=== PATIENT | female | born 1935 | race Caucasian/White ===

== ENCOUNTER 2018-07-19 12:36 | Inpatient (IN) | payer MEDICARE ==
--- NOTE | 2018-07-19 13:28 | ED ---
Neurological HPI - HPI Summary HPI Summary: 82 year old F brought in by EMS from home where she lives alone to [facility] accompanied by son complains of generalized weakness progressively worsening for the past year. The patient has ongoing pain in her left shoulder for weeks and rates the pain 4/10. Symptoms aggravated by nothing. Symptoms alleviated by nothing. Patient reports insomnia and anxiety. Patient denies chest pain, chest tightness, shortness of breath. No hx OR. Denies headache and dizziness. Denies fever and cough. Denies abdominal pain, nausea, vomiting. Son denies facial droop and speech abnormalities. Son denies recent falls. Patient additionally complains of difficulty with ambulation and movement. Per son, her inability to ambulate continues to worsen, reaching a point where patient is shuffling rather than walking. Patient states, "When I want my leg to move, my leg won't move." She additionally notes tremors in both hands, which have not been diagnosed per son. The tremors have progressively been getting worse. Patient also reports that her left arm feels tired, heavy, and achey for a few weeks. Patient presents to ED today because she feels much worse and anxious. Patient notes that she has not been taking her medication for the last 6 weeks because her medication "makes me sick," including bilateral lower extremity edema, bruising, diarrhea, and vomiting. However, she did take Metoprolol and Levoxyl this morning. Patient has hx diabetes. Patient reports that blood glucose levels are usually 130-150 every morning. Patient has hx thyroid problems and hx HTN. She denies Fhx Parkinson's disease. Patient has had back surgery for sciatic nerve and states that the left leg weakness is the side that was affected by the sciatica. Son also notes that patient has not seen her primary care provider for a while, months at least. Pt has not had a neurologic evaluation for her tremors or gait which have been present since at least 2015 per son, but worsening. Vital signs while in room: HR 70 bpm, BP 201/108 Home Medications Medication Instructions Recorded Confirmed Type Levothyroxine Sodium [Levoxyl] 50 mcg PO DAILY 06/10/13 07/19/18 History Lisinopril TAB* [Prinivil TAB 10 40 mg PO DAILY 06/10/13 07/19/18 History MG*] Metoprolol Tartrate TAB* 50 mg PO BID 06/10/13 07/19/18 History [Lopressor TAB*] Multivitamin [Multivitamins] 1 cap PO DAILY 06/10/13 07/19/18 History [place]-3 Fatty Acids [Fish Oil 645 1 cap PO DAILY 06/10/13 07/19/18 History mg] amLODIPine TAB* [Norvasc 5 mg TAB*] 10 mg PO DAILY 06/10/13 07/19/18 History glipiZIDE TAB* [Glucotrol TAB*] 2.5 mg PO BID 06/10/13 07/19/18 History metFORMIN* [Glucophage 500 MG TAB 1,000 mg PO BID 06/10/13 07/19/18 History *] Naproxen Sodium [Aleve] 440 mg PO DAILY 03/08/16 07/19/18 History - History of Current Complaint Chief Complaint: EDWeakness Stated Complaint: WEAKNESS Time Seen by Provider: 07/19/18 13:16 Hx Obtained From: Patient, Family/Overnight Stocker - son Onset/Duration: Gradual Onset, Still Present, Worse Since - today, Other - started 1 year ago Timing: Constant Onset Severity: Moderate Current Severity: Moderate Neurological Deficit Location: LLE - left leg weakness, chronic since spinal surgery 2015 Pain Intensity: 4 - left arm and shoulder Pain Scale Used: 0-10 Numeric Character: Weak - generalized, and continued left leg weakness, Motor Weakness - left leg greater than right leg for weeks to months, shuffling gait, Other: - bilateral hand tremor getting worse Aggravating: Nothing Alleviating: Nothing Associated Signs and Symptoms: Positive: Unsteady Gait, Weakness. Negative: Impaired Speech, Numbness, Nausea/Vomiting, Fever, Recent Illness, Diarrhea, Chest Pain, Shortness of Breath, Palpitations TPA Considered: No - not acute presentation Related Hx: Medication Non-Comliant - med non-compliant: stopped meds on her own 6 weeks ago, due to side effects. Has not seen PCP in months at least. Pt brought med bottles, but I did not review dates of the RX's or the names of the prescribers. - Additional Pertinent History Primary Care Physician: [id number] - Allergy/Home Medications Allergies/Adverse Reactions: Allergies Allergy/AdvReac Type Severity Reaction Status Date / Time hydrochlorothiazide Allergy See Comment Verified 07/19/18 12:59 atorvastatin [From Lipitor] AdvReac Muscle Ache Verified 07/19/18 12:52 Fpvdysr-Epo-Fss Reductase AdvReac Muscle Ache Verified 07/19/18 12:59 Inhibitor PMH/Surg Hx/FS Hx/Imm Hx Previously Healthy: No Endocrine/Hematology History: Reports: Hx Diabetes, Hx Thyroid Disease - ON DAILY MEDS, hypothyroid Cardiovascular History: Reports: Hx Hypercholesterolemia, Hx Hypertension - ON DAILY MEDS Denies: Hx Pacemaker/ICD History: Denies: Hx Dialysis, Hx Renal Disease Musculoskeletal History: 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 1983 D&C. 194 MASTOID OPERATION, BACK SURGERY 02/08/2016 Hx Anesthesia Reactions: No Infectious Disease History: No Infectious Disease History: Denies: Traveled Outside the [place] in Last 30 Days - Family History Known Family History: Positive: Hypertension, Diabetes - mother, Other - cancer both parents - Social History Lives: Alone Alcohol Use: None Hx Substance Use: No Substance Use Type: Reports: None Hx Tobacco Use: Yes Smoking Status (MU): Former Smoker Type: Cigarettes Amount Used/How Often: LESS THEN 1PPD Have You Smoked in the Last Year: No Review of Systems Positive: Other - generalized weakness, no fever Cardiovascular: Negative - chest tightness Negative: Chest Pain Negative: Shortness Of Breath Negative: Abdominal Pain, Vomiting, Nausea Positive: no symptoms reported Positive: Other - left arm heavy, achey, tired Positive: Rash - behind right knee Neurological: Negative - Dizziness; facial droop; speech abnormalities, Other - increasing generalized weakness; tremors in both hands; left arm feels tired, heavy, and achey Negative: Headache Positive: Anxious, Other - insomnia All Other Systems Reviewed And Are Negative: Yes Physical Exam - Summary Physical Exam Summary: Appearance:chronically-appearing, moderate pain distress due to left shoulder and arm, obese, hypertensive Skin: Warm, color reflects adequate perfusion, dry, 5 cm lesion right post knee with raised, scabbed edges and central clearing Head: Normal Head/Face inspection, atraumatic Eyes: Conjunctiva clear, PERRL EOMI, no nystagmus ENT: Normal inspection Neck: Supple, no nodes, no JVD Respiratory: Lungs clear, normal breath sounds, no respiratory distress Cardio: RRR, No murmur, pulses normal, brisk capillary refill Abdomen: Soft, nontender Bowel sounds: Present Musculoskeletal: left leg 4/5 strength, right 5/5, distal pulses, sensation intact, no calf tenderness, no edema, deformity left shoulder, no bony tenderness, axillary nerve intact on left, decreased abduction on left . Psychological: Normal Neuro: A&O x3, CN II-XII intact, motor function 4/5 left leg, otherwise normal, sensation intact, cerebellar normal, bilateral hand tremor at rest (? pillrolling on right?, lessens with outstretched hands) GCS: 15 Triage Information Reviewed: Yes Vital Signs On Initial Exam: Initial Vitals Temp Pulse Resp BP Pulse Ox 97.4 F 70 14 199/96 97 07/19/18 12:36 07/19/18 12:36 07/19/18 12:36 07/19/18 12:36 07/19/18 12:36 Vital Signs Reviewed: Yes - [place] Coma Scale Best Eye Response: 4 - Spontaneous Best Motor Response: 6 - Obeys Commands Best Verbal Response: 5 - Oriented Coma Scale Total: 15 Diagnostics - Vital Signs Vital Signs Temp Pulse Resp BP Pulse Ox 07/19/18 12:36 97.4 F 70 14 199/96 97 - Laboratory Result Diagrams: 07/20/18 07:24 07/20/18 07:24 Lab Statement: Any lab studies that have been ordered have been reviewed, and results considered in the medical decision making process. - Radiology Shoulder Radiology Interpretation Completed By: Radiologist Summary of Radiographic Findings: 1. LIMITED SINGLE FRONTAL PROJECTION OF THE LEFT SHOULDER. 2. OSTEOPENIA. 3. OSTEOARTHRITIS. 4. NO ACUTE OSSEOUS INJURY. IF SYMPTOMS PERSIST, RECOMMEND REPEAT IMAGING. ED physician has reviewed this report. ADDITONAL IMAGES TRANSMITTED FOR RE-READ: still no acute fracture dislocation. CXR Radiology Interpretation Completed By: Radiologist Summary of Radiographic Findings: HYPERINFLATION. NO ACTIVE CARDIOPULMONARY DISEASE. ED physician reviewed this report. - CT Brain CT Interpretation Completed By: Radiologist Summary of CT Findings: NO ACUTE INTRACRANIAL PATHOLOGY. ED physician has reviewed this report. - EKG 1320 Cardiac Rate: NL - 63 BPM EKG Rhythm: Sinus Rhythm ST Segment: Non-Specific Ectopy: None Summary of EKG Findings: NSR at 63 BPM. Left axis (-16). Believed artifact due to tremor, causing appearance of possible atrial flutter. No significant change from previous EKG on 02/02/16. Not a STEMI. NIH Scale - NIH Scale Level of Consciousness: Alert/Keenly Responsive Ask Patient the Month and His/Her Age: Both Correct Ask Pt to Open/Close Eyes and Pottery Decorator/Release Non-Paretic Hand: Both Correctly Best Gaze (Only Horizontal Eye Movement): Normal Visual Field Testing: No Visual Loss Facial Paresis-Pt to Smile & Close Eyes or Grimace Symmetry: Normal/Symmetrical Motor Function - Right Arm: No Drift-Holds 10 Seconds Motor Function - Left Arm: No Drift-Holds 10 Seconds Motor Function - Right Leg: No Drift-Holds 10 Seconds Motor Function - Left Leg: Effort Against [place] Limb Ataxia-Must be out of Proportion to Weakness Present: Absent Sensory (Use Pinprick to Test Arms/Legs/Trunk/Face): Normal Best Language (Describe Picture, Name Items): No Aphasia Dysarthria (Read Several Words): Normal Extinction and Inattention: No Abnormality Total Score: 2 NIH Stroke Scale Comment: left leg weakness is not acute. Pt also has bilat hand tremors Re-Evaluation - Re-Evaluation First Eval Re-Evaluation Time: 15:00 Change: Improved Comment: HR 66 BPM, BP 176/92 after IV metoprolol. Patient has no pain. Her tremor is a little less. Course/Dx - Course Course Of Treatment: 82 yo F who lives alone, with hx DM, HTN, hypothyroidism, s /p spinal surgery med noncompliant due to side effects, and lapsed care with her PCP for many months presents to the ED by EMS with her son who lives across the [address] with hx worsening generalized weakness and hand tremors, continued left leg weakness s/p spinal surgery, and worsening problem with ambulation and a shuffling gait. Pt with hypertensive urgency on presentation to the ED and c/ o left shoulder and arm pain for weeks to months, worse today, and vague intermittent chest pain. Patient medications reviewed this visit, which are many , but pt took only metoprolol and levoxyl this am, and has stopped most for more than 6 weeks. Allergies noted. Bloodwork unremarkable and initial troponin 0.01 and UA without sign of infection and pos ketones. EKG showed probable sinus rhythm but irregular baseline attributed to tremors gives appearance of possible atrial flutter. The irregular baseline was present in 2016 but not as pronounced and there is no significant change from previous EKG on 02/02/16. Imaging reports of CT brain, CXR and left shoulder showed no acute abnormalities per radiologist. Pt was given metoprolol 2.5mg IV for the hypertensive urgency, hoping that it might help if possible atrial flutter, and also help lessen pt's hand tremors which are quite pronounced and disabling for pt. Discussed case with Dr. Denise, hospitalist, who agrees to admit patient. Discussed admission plan with patient and son, both who are agreeable to admission. Patient will be admitted to hospitalist. - Differential Dx Differential Diagnoses Neuro: Positive: Cerebrovascular Accident, Coronary Artery Disease, Dysrhythmia, Metabolic Abnormality - Diagnoses Provider Diagnoses: Generalized weakness, Hypertensive urgency, Tremor of both hands, Shoulder pain , left, Left leg weakness - Physician Notifications Discussed Care Of Patient With: Citlali Denise Time Discussed With Above Provider: 14:20 Instructed by Provider To: Other - Dr. Denise, hospitalist, agrees to admit the patient - Critical Care Time Critical Care Time: 30-74 min - 30 mins Discharge - Sign-Out/Discharge Documenting (check all that apply): Patient Departure - Admit - Discharge Plan Condition: Fair Disposition: ADMITTED TO [facility] - Billing Disposition and Condition Condition: FAIR Disposition: Admitted to [facility] - Attestation Statements Document Initiated by Scribe: Yes Documenting Scribe: Marta Carrera Provider For Whom Jefibe is Documenting (Include Credential): Marcelina Bell MD Scribe Attestation: Marta Vasquez, scribed for Marcelina Bell MD on 07/20/18 at 1344. Scribe Documentation Reviewed: Yes Provider Attestation: The documentation as recorded by the scribeMarta accurately reflects the service I personally performed and the decisions made by me, Marcelina Bell MD Status of Scribe Document: Viewed
[2018-07-19] MEDS ORDERED: Metoprolol Tartrate IV* 1 MG/ML 5 ML VIAL IV ONE (13:36)
[2018-07-19 13:39] LABS: ABS Basophils 0.1 10^3/ul (0-0.2); ABS Eosinophils 0 10^3/ul (0-0.6); ABS Lymphocytes 1.6 10^3/ul (1.0-4.8); ABS Monocytes 0.4 10^3/ul (0-0.8); ABS Neutrophils 4.9 10^3/ul (1.5-7.7); ABS Nucleated RBC 0 10^3/ul; Eosinophil % 0.4 %; Hematocrit 48 % (35-47); Hemoglobin 16.6 g/dl (12.0-16.0); Mean Corpuscular HGB Conc 34 g/dl (31-36); Mean Corpuscular Hemoglobin 32 pg (27-31); Mean Corpuscular Volume 92 fL (80-97); Mean Platelet Volume 8.1 fL (7.4-10.4); Nucleated Red Blood Cells % 0; Platelet Count 202 10^3/ul (150-450); Red Blood Count 5.22 10^6/ul (4.00-5.40); Red Cell Distribution Width 14 % (10.5-15)
[2018-07-19 13:46] LABS: INR 1.01 (0.77-1.02)
[2018-07-19 13:58] LABS: Albumin/Globulin Ratio 1.6 (1-3); BUN/Creatinine Ratio 21.3 (8-20); Calcium 9.5 mg/dL (8.6-10.3); EGFR Non-African American 73.8 (>60); Globulin 2.5 g/dL (2-4); Magnesium 2.1 mg/dL (1.9-2.7); Total Bilirubin 0.8 mg/dL (0.2-1.0); Total Protein 6.5 g/dL (6.4-8.9)
[2018-07-19] MEDS ORDERED: Metoprolol Tartrate TAB* 25 MG PO ONE (14:34)
[2018-07-19 14:55] LABS: TSH (Thyroid Stimulating Horm) 1.91 mcIU/mL (0.34-5.60)
[2018-07-19 14:58] LABS: Urine Appearance Clear; Urine Bilirubin Negative (Negative); Urine Blood Negative (Negative); Urine Color Straw; Urine Glucose Negative (Negative); Urine Ketones Trace (Negative); Urine Nitrite Negative (Negative); Urine Protein Negative (Negative); Urine Specific Gravity 1.008 (1.010-1.030); Urine Urobilinogen Negative (Negative)
[2018-07-19] MEDS ORDERED: Dextrose 50% Syringe 50 ML* 25 GM/50 ML SYRINGE IV PUSH PRN (16:38)
[2018-07-19] MEDS: amLODIPine TAB* 5 MG PO SCH (17:07)
[2018-07-19] MEDS: Lisinopril TAB* 10 MG PO SCH (17:08)
[2018-07-19] MEDS ORDERED: Aspirin 81 mg CHEW TAB* 81 MG TAB.CHEW PO ONE (20:35)
[2018-07-19] MEDS: Metoprolol Tartrate TAB* 50 mg PO SCH (20:36)
[2018-07-19] MEDS: Acetaminophen TAB* 325 MG PO PRN (20:37)
[2018-07-19] MEDS: Nystatin TOP POWDER* 15 GM BTL TOPICAL SCH (20:38)
[2018-07-19] MEDS: Clotrimazole 1% CREAM* 45 GM TOPICAL SCH (20:38)
[2018-07-19] MEDS ORDERED: Enoxaparin(*) 100 MG/ML SYR SUBCUT SCH (21:00)
[2018-07-19] MEDS ORDERED: Heparin VIAL(*) 5000 UNITS/ML VIAL (FIVE THOUSAND) SUBCUT SCH (22:00)
--- NOTE | 2018-07-19 22:29 | PN ---
Hospitalist Progress Note Date of Service: 07/19/18 EKG - read by - read as poor baseline probable NSR with non-specific t wave changes - lovenox d/c'd and will resume heparin for dvt prop tomorrow
[2018-07-20] MEDS: amLODIPine TAB* 5 MG PO SCH ×2 (01:05→08:38)
--- NOTE | 2018-07-20 02:46 | HP ---
CC: Lina Adkins MD * HISTORY AND PHYSICAL: DATE OF ADMISSION: 07/19/18 PROVIDER: Tatum Dumont NP PRIMARY CARE PROVIDER: Dr. Adkins. ATTENDING PHYSICIAN WHILE IN THE HOSPITAL: Dr. Citlali Denise * (dictated by Tatum Dumont NP). CHIEF COMPLAINT: Weakness and shaking. HISTORY OF PRESENT ILLNESS: Ms. Tariq is an 82-year-old female with past medical history significant for lumbar stenosis, diabetes, hypertension, hypothyroid, who presented to the emergency room today with progressively worsening weakness and shaking. The patient states that she has had weakness and shaking for several months that has progressively been getting worse. She has last seen her primary care doctor approximately 2 years ago. Recently, she had an evaluation and has qualified for home health aide for a couple of hours a day, but due to the progressive weakness and shaking, the patient presented to the emergency room for further evaluation. The patient does have some weakness in her left leg. She states that that is chronic for her since she had her surgery in 2016 for lumbar laminectomy, at that time with Dr. Enamorado, that the weakness in that leg never totally resolved. She denies any fever, chills. Denies any unintended weight loss. Denies any chest pain or edema. No cough, congestion, or hemoptysis. She denies any shortness of breath. She denies any diarrhea, abdominal pain, or vomiting. She denies any gross hematuria or dysuria. She does report frequency of going every 3 to 4 hours. She does have some left leg weakness that is chronic for her since 2016. Denies any visual complaints, dysphasia, arthralgias, or myalgias. She does report a red rash under her left breast, left groin and a scaly rash behind her right knee and also reports no depression, but increased anxiety. PAST MEDICAL HISTORY: Significant for: 1. Lumbar stenosis. 2. Diabetes. 3. Hypertension. 4. Hypothyroid. PAST SURGICAL HISTORY: 1. Umbilical hernia repair. 2. Tonsillectomy. 3. D and C. 4. Lumbar surgery. HOME MEDICATIONS: 1. Levothyroxine 25 mcg p.o. daily. 2. Metoprolol 50 mg p.o. b.i.d. 3. The patient reports she is not currently taking amlodipine 10 mg. 4. Naproxen. 5. Multivitamin. 6. Fish Oil. 7. Lisinopril 40. 8. Glipizide 2.5 mg or Metformin 1000 mg b.i.d. as she did not like how they made her feel. ALLERGIES: She does have an allergy to HYDROCHLOROTHIAZIDE, ATORVASTATIN and STATINS. FAMILY HISTORY: Son with a history of coronary artery disease. Mother with a history of diabetes. Mother with a history of breast cancer. Father with melanoma. SOCIAL HISTORY: She quit smoking over 50 years ago, prior to that she smoked for approximately 2 to 3 years while in college. She denies any alcohol or illicit drug use. She lives alone. Surrogate decision maker is her son. She is a DNR/DNI. A MOLST form was completed. REVIEW OF SYSTEMS: There was no fever, no unintended weight loss. No chest pain or edema. No cough, hemoptysis or shortness of breath. She denies any abdominal pain, diarrhea or vomiting. She does report some nausea. Denies hematuria or dysuria. She does report, frequency of going every 3 to 4 hours. She does report chronic left leg weakness since 2016. Denies any visual complaints. Denies any dysphagia. Denies any myalgia. She does complain of right shoulder pain. Skin: She complains of rash under the left breast and left groin and scaly rash behind her right knee. She also reports anxiety. Denies any depression. PHYSICAL EXAMINATION GENERAL: At this time, Ms. Tariq is an 82-year-old female, resting on the stretcher in the emergency room. She does have upper extremity tremoring. She is alert and oriented x3. She is in no acute distress. HEENT: Head is atraumatic, normocephalic. Eyes: EOMs are intact. Sclerae anicteric, not pale. Oral mucosa appears to be moist. NECK: Supple. LUNGS: Clear to auscultation bilaterally. No wheezes, rales or rhonchi. CARDIAC: S1, S2. Regular rate and rhythm. ABDOMEN: Soft and nontender. Bowel sounds are present x4. MUSCULOSKELETAL: She is able to move all 4 extremities with 4/5 strength. NEUROLOGIC: She is awake, alert and oriented x3. Smile is equal. Tongue is midline. Speech is clear. Cranial nerves II through XII were intact. She does have bilateral upper extremity tremor that resolves with tasks. With holding arms extended straight, there is no drift. She does have left index finger with fine tremoring, but hand tremoring resolves. Upper extremity strength is intact bilaterally and strong. There are no gross focal deficits noted. She does have decreased mobility of her left lower leg. SKIN: She has a rash behind her right knee that is scaly, scabbed with a circular red border and she has erythema under the left breast and in the left groin. DIAGNOSTIC STUDIES AND LABORATORY DATA: WBCs were 7.0, RBCs 5.22, hemoglobin was 16.2, hematocrit is 48, platelet count is 202. INR is 1.01. Sodium 139, potassium 4.0, chloride 104, carbon dioxide was 27, anion gap was 8, BUN was 16 , creatinine 0.75, glucose was 120, lactic acid was 0.9, calcium 9.5, magnesium 2.1. T. bili was 0.80, ASTs were 17, ALTs were 10, alkaline phosphatase was 61. Total CK was 43. Troponin was 0.01, repeat was 0.04. BNP was 84. Albumin 4.0. TSH was 1.91, thyroxine T4 was 11.95. Urine color was straw. Urine appearance was clear, pH was 7, specific gravity 1.008, protein was negative, ketones were trace, blood was negative, nitrites were negative, bilirubin was negative. Urobilinogen was negative. Urine leukocyte esterase was negative. Urine glucose was negative. She had a chest x-ray, radiologist's impression: Hyperinflation, no active cardiopulmonary disease. She had a CT of the brain, radiologist's impression: No acute intracranial pathology. She had a shoulder x-ray. The x-ray shows osteopenia with osteoarthritis of the AC and glenohumeral joint. There is no displaced fracture. EKG has rate of 66. Poor baseline, which limits interpretation, concern for A- flutter. ASSESSMENT AND PLAN: Ms. Tariq is an 82-year-old female that presented to the emergency room today with weakness and shaking. Due to her weakness, we were asked to see and evaluate her for admission. 1. I suspect her weakness is related to deconditioning. Her EKG has also poor tracing, but concern for atrial flutter, which could be contributing to her weakness. At this time, I will give her some gentle hydration. I will monitor her overnight. We will get orthostatics in the a.m., repeat an EKG. I will also order a PT evaluation. 2. Elevated troponin. The patient does not have any chest pain at this time. I suspect this could be related to her hypertension as she was hypertensive on arrival to the emergency room. We will continue to trend her troponin. I will give her aspirin 324 mg p.o. I will repeat an EKG in the a.m. I will get a transthoracic echocardiogram to evaluate her heart function. Her EKG does show possible atrial flutter, so I will place her on Lovenox 1 mg per kg subcu q.12 hours. 3. Diabetes. I will place her on Accu-Cheks a.c. with lispro sliding scale. The patient is not currently taking her glipizide or metformin at home as she states it gives her an adverse reaction and she has not taken these medications in approximately 2 months. I will get a hemoglobin A1c on her. 4. Candidiasis. She appears to have yeast infection under her left breast and in her left groin. I have ordered nystatin powder t.i.d. 5. She appears to have ringworm to the left posterior knee. I will order clotrimazole twice daily. 6. Upper extremity tremor. The patient does appear to have an essential tremor that resolves with raising her arms and activity. We will continue to monitor the tremor. I would recommend that the patient have an outpatient Neurology consult for evaluation of upper extremity tremor. 7. Hypertension. I will continue her metoprolol and lisinopril as previously prescribed. 8. FEN. I will place her on a heart healthy diet. 9. Code status. She is a DNR/DNI. MOLST form was completed. 10. DVT prophylaxis. We will continue with Lovenox 1 mg per kg q.12 hours. 11. Disposition. She will be placed on observation on the floor. TIME SPENT: Time spent on this admission was 60 minutes. greater than half the time was spent with the patient obtaining my history and physical, the other half of the time was spent going over my plan of care and implementing my plan of care. I have discussed this with my attending Dr. Citlali Denise, she is in agreement with my plan. TATUM HÉCTOR, MANAGER QUALITY [id number]/[facility] #: [id number] [facility]
[2018-07-20] MEDS ORDERED: Isosorbide Mononitrate ER TAB* 30 MG PO ONE (02:47)
[2018-07-20] MEDS: Acetaminophen TAB* 325 MG PO PRN ×2 (03:11→08:38)
[2018-07-20] MEDS: Levothyroxine TAB* 50 MCG TAB PO SCH (05:47)
[2018-07-20 07:35] LABS: ABS Basophils 0.1 10^3/ul (0-0.2); ABS Eosinophils 0.1 10^3/ul (0-0.6); ABS Lymphocytes 1.5 10^3/ul (1.0-4.8); ABS Monocytes 0.4 10^3/ul (0-0.8); ABS Neutrophils 4.3 10^3/ul (1.5-7.7); ABS Nucleated RBC 0 10^3/ul; Hematocrit 44 % (35-47); Lymphocyte % 23.6 %; Mean Corpuscular HGB Conc 34 g/dl (31-36); Mean Corpuscular Hemoglobin 31 pg (27-31); Mean Corpuscular Volume 91 fL (80-97); Mean Platelet Volume 7.9 fL (7.4-10.4); Nucleated Red Blood Cells % 0; Platelet Count 189 10^3/ul (150-450); Red Cell Distribution Width 14 % (10.5-15); White Blood Count 6.3 10^3/ul (3.5-10.8)
[2018-07-20 07:57] LABS: BUN/Creatinine Ratio 18.4 (8-20); EGFR Non-African American 72.7 (>60); Potassium 3.8 mmol/L (3.5-5.0)
[2018-07-20] MEDS ORDERED: Heparin VIAL(*) 5000 UNITS/ML VIAL (FIVE THOUSAND) SUBCUT SCH (08:00)
[2018-07-20] MEDS: Insulin LISPRO* 1 UNITS UNIT SUBCUT SCH ×3 (08:20→17:42)
[2018-07-20] MEDS: Vitamin THERAPEUTIC TAB PO SCH (08:37)
[2018-07-20] MEDS: Lisinopril TAB* 10 MG PO SCH (08:39)
[2018-07-20] MEDS: Metoprolol Tartrate TAB* 50 mg PO SCH ×2 (08:39→20:38)
[2018-07-20] MEDS: Clotrimazole 1% CREAM* 45 GM TOPICAL SCH ×2 (08:43→20:40)
[2018-07-20] MEDS: Nystatin TOP POWDER* 15 GM BTL TOPICAL SCH ×2 (08:43→20:40)
[2018-07-20 09:25] LABS: C Reactive Protein 1.07 mg/L (<8.01)
[2018-07-20] MEDS: traMADol TAB* 50 MG PO PRN ×2 (10:33→20:37)
--- NOTE | 2018-07-20 11:07 | ECHO ---
Patient: MAGNO CALLEJAS [facility] Rec#: [id number] : 1935 Date: 07/20/2018 Age: 82y Height: 175 cm / 68.9 in Weight: 109 kg / 240.2 lbs Sex: F BSA: 2.23 Room#: 447 Admit Date#: 07/19/2018 Type: Inpatient Referring: Tatum Dumont Reading: Jovan Camacho MD [employer]: Harleen Johnson RDCS,RDMS CC: EDEN GOULD Transthoracic Echocardiogram Indication: ABN EKG BP: 140/71 HR: 62 Rhythm: NSR Findings History: DM, HTN Technical Comments: The study is technically difficult. Left Ventricle: The left ventricular chamber size is normal. Mild concentric left ventricular hypertrophy is observed. Global left ventricular wall motion and contractility are within normal limits. There is normal left ventricular systolic function. The estimated ejection fraction is 55-60%. There is an E to A reversal in the mitral valve flow pattern suggestive of diastolic dysfunction. Left Atrium: The left atrium is mildly dilated. Right Ventricle: The right ventricular chamber size and systolic function are within normal limits. Right Atrium: The right atrium is mildly dilated. Aortic Valve: The aortic valve is trileaflet. Systolic excursion of the aortic valve is normal. There is aortic annular calcification. There is no evidence of aortic regurgitation. There is no evidence of aortic stenosis. Mitral Valve: There is mitral annular calcification. The mitral valve leaflets are mildly thickened. There is no evidence of mitral regurgitation. There is no evidence of mitral stenosis. Tricuspid Valve: The tricuspid valve leaflets are normal. There is no evidence of tricuspid valve regurgitation. Pulmonic Valve: There is no evidence of pulmonic valve thickening. There is no evidence of pulmonic regurgitation. Pericardium: There is no significant pericardial effusion. Aorta: The ascending aorta is not well visualized. There is no dilatation of the aortic arch. The aortic root is normal in size. Pulmonary Artery: The main pulmonary artery appears normal. Venous: The inferior vena cava appears normal. There is a greater than 50% respiratory change in the inferior vena cava dimension. Summary: There was not any prior study for comparison. Conclusions Mild concentric left ventricular hypertrophy is observed. Global left ventricular wall motion and contractility are within normal limits. There is normal left ventricular systolic function. The estimated ejection fraction is 55-60%. There is no evidence of aortic stenosis. There is no evidence of mitral regurgitation. There is no evidence of tricuspid valve regurgitation. There is no significant pericardial effusion. Measurements Name Value Normal Range RVIDd (AP) 2D 2.9 cm (0.9 - 2.6) RVDdMajor (2D) 2.8 cm (2.2 - 4.4) RAd ISD 4CH 5.5 cm (3.4 - 4.9) RA (A4C)W 3.1 cm (2.9 - 4.6) IVSd (2D) 1.2 cm (0.6 - 1) LVPWd (2D) 1.3 cm (0.6 - 1) LVIDd (2D) 3.5 cm (3.6 - 5.4) LVIDs (2D) 2.6 cm - LV FS (2D) 26 % (25 - 45) Aortic Annulus 2 cm (1.4 - 2.6) Ao root diameter (2D) 2.2 cm (2.1 - 3.5) Aortic arch 3 cm (1.8 - 3.4) LA dimension (AP) 2D 3.9 cm (2.3 - 3.8) LAd ISD 4CH 5.6 cm (2.9 - 5.3) LA ISD 4CH W 3.7 cm (2.5 - 4.5) Name Value Normal Range LA ESV BP (A/L) index 28 ml/m2 - Name Value Normal Range MV E-wave Vmax 0.5 m/sec - MV deceleration time 216 msec - MV A-wave Vmax 0.9 m/sec - MV E:A ratio 0.6 ratio - LV septal e' Vmax 0.06 m/sec - LV lateral e' Vmax 0.05 m/sec - LV E:e' septal ratio 9 ratio - LV E:e' lateral ratio 10 ratio - Name Value Normal Range MV Vmax 1.1 m/sec - MV VTI 25 cm - MV peak gradient 5 mmHg - MV mean gradient 2 mmHg - MV PHT 76 msec - MVA (PHT) 2.9 cm2 - Name Value Normal Range RAP 8 mmHg - IVC diameter 1.2 cm - Name Value Normal Range PV Vmax 0.9 m/sec - PV peak gradient 3.2 mmHg -
[2018-07-20] MEDS ORDERED: hydrALAZINE IV* 20 MG/ML VIAL IV SLOW PU PRN (14:37)
--- NOTE | 2018-07-20 14:39 | PN ---
Subjective Date of Service: 07/20/18 Interval History: Ms. Tariq reports that she continues to have left arm and neck pain. She is also very weak. She denies other complaint. Objective Active Medications: Acetaminophen (Tylenol Tab*) 650 mg PO Q4H PRN Amlodipine Besylate (Norvasc Tab*) 10 mg PO DAILY [facility] Clotrimazole (Clotrimazole 1%*) 1 applic TOPICAL BID [facility] Dextrose (D50w Syringe 50 Ml*) 12.5 gm IV PUSH .FOR FS < 60 - SS PRN Enoxaparin Sodium (Lovenox(*)) 40 mg SUBCUT Q24H [facility] Hydralazine HCl (Apresoline Tab*) 10 mg PO BID [facility] Insulin Human Lispro (Humalog*) 0 units SUBCUT AC [facility]; Protocol Levothyroxine Sodium (Synthroid Tab*) 50 mcg PO 0600 [facility] Lisinopril (Prinivil Tab*) 40 mg PO DAILY [facility] Metoprolol Tartrate (Lopressor Tab*) 50 mg PO BID [facility] Multivitamins (Theragran Tab*) 1 tab PO DAILY [facility] Nystatin (Nystatin Top Powder*) 1 applic TOPICAL BID [facility] Tramadol HCl (Ultram*) 50 mg PO Q6H PRN Vital Signs: Temp Pulse Resp BP Pulse Ox 97.7 F 59 18 136/72 96 07/20/18 11:25 07/20/18 11:25 07/20/18 12:33 07/20/18 11:25 07/20/18 11:25 Oxygen Devices in Use Now: None Appearance: Female lying in bed, son at bedside, in NAD Eyes: No Scleral Icterus Neck: NL Appearance and Movements; NL JVP Respiratory: Symmetrical Chest Expansion and Respiratory Effort, Clear to Auscultation Cardiovascular: NL Sounds; No Murmurs; No JVD, No Edema Abdominal: NL Sounds; No Tenderness; No Distention Extremities: No Edema Skin: No Rash or Ulcers Neurological: Alert and Oriented x 3, - - Weakness in B LEs, pain with mobility of LEs, resting tremor Nutrition: Taking PO's Result Diagrams: 07/20/18 07:24 07/20/18 07:24 Assess/Plan/Problems-Billing Assessment: Ms. Tariq is an 82 yo female with a PMH of DM and HTN who was admitted o with weakness and tremor with difficulty caring for self at home. - Patient Problems (1) Parkinson disease Comment: - Appreciate neurology consult, high suspicion for parkinson's - Start sinemet. - Appreciate PT eval, will need rehab. (2) Neck pain Comment: - Xray negative - MRI cervical spine with severe multilevel disk degeneration, neurosurgery to eval - Continue ibuprofen, tramadol and oxycodone prn (3) Hypertension Comment: - BP controlled now that she is back on home meds (4) Hypothyroidism Comment: - TSH 1.91 - Continue levothyroxine (5) Diabetes Comment: - BGs 90-150s - Hold glipizide and metformin, continue lispro SSI coverage with meals (6) Urmila infection Comment: - Under breasts, continue nystatin (7) DVT prophylaxis Comment: - Lovenox (8) DNR (do not resuscitate) Status and Disposition: INpatient. Will need rehab. PMRU referral made.
[2018-07-20] MEDS ORDERED: Ibuprofen TAB* 600 MG PO PRN (15:37)
[2018-07-20] MEDS ORDERED: oxyCODONE/Acetamin 5/325 MG* TAB PO PRN (15:51)
[2018-07-20] MEDS: Lidocaine PATCH 5%* 1 PATCH TRANSDERM SCH (16:49)
[2018-07-20] MEDS: Melatonin 3 MG TAB PO SCH (20:38)
[2018-07-20] MEDS: Enoxaparin(*) 40 MG/0.4 ML SYR SUBCUT SCH (20:40)
[2018-07-20] MEDS ORDERED: hydrALAZINE TAB* 10 MG PO SCH (21:00)
[2018-07-21] MEDS: Levothyroxine TAB* 50 MCG TAB PO SCH (05:23)
[2018-07-21] MEDS: Lidocaine Patch REMOVE* 1 NOTE MISC PATCH OFF SCH (05:24)
[2018-07-21] MEDS: Insulin LISPRO* 1 UNITS UNIT SUBCUT SCH ×3 (08:38→18:24)
[2018-07-21] MEDS: Lisinopril TAB* 10 MG PO SCH (10:03)
[2018-07-21] MEDS: amLODIPine TAB* 5 MG PO SCH (10:03)
[2018-07-21] MEDS: Metoprolol Tartrate TAB* 50 mg PO SCH ×2 (10:04→21:18)
[2018-07-21] MEDS: Vitamin THERAPEUTIC TAB PO SCH (10:04)
[2018-07-21] MEDS: Lidocaine PATCH 5%* 1 PATCH TRANSDERM SCH (10:13)
[2018-07-21] MEDS: Clotrimazole 1% CREAM* 45 GM TOPICAL SCH ×2 (13:23→21:25)
[2018-07-21] MEDS: Nystatin TOP POWDER* 15 GM BTL TOPICAL SCH ×2 (13:23→21:25)
--- NOTE | 2018-07-21 14:43 | CONSULT ---
Consult Consult: Neurosurgery Consult Date of Admission: 07/19/18 Date of Consult: 07/21/18 Reason for Consult: Neck and left arm pain, weakness Referring Provider: Marzena Rodriguez NP HPI: This is an 82 year old female with past medical history significant for diabetes and HTN who presented to [facility] for evaluation of generalized weakness and neck pain. She reports chronic back and neck pain for the past several years. She believes the left upper extremity pain and numbness/tingling began approximately 2 years ago and has worsened since. The pain travels from the neck down to the shoulder and into the arm and index finger. Denies significant right upper extremity numbness and pain but does report difficulty with fine motor skills and writing. She has had difficulty with mobility in the past 2 years since undergoing lumbar with Dr. Enamorado and subsequently developing a wound infection. She also reports left lower extremity weakness and difficulty ambulating since lumbar surgery. Denies pain in the lower extremities. She has been unable to stand up from sitting independently and uses a lift recliner chair at home. Approximately 2 years ago she started noticing a tremor which is now present in bilateral hands. Denies recent illness, infection, travel. Denies vision change, changes in speech, poor appetite, weight gain/loss, abdominal pain, nausea, vomiting. Past Medical History: 1. HTN 2. Diabetes 3. Cervical spondylosis and DDD 4. Lumbar stenosis s/p decompression 5. Hypothyroidism Past Surgical History: 1. Lumbar decompression 2. Tonsillectomy 3. Umbilical hernia repair Medications: Acetaminophen (Tylenol Tab*) 650 mg PO Q4H PRN PRN Reason: FEVER/PAIN Last Admin: 07/20/18 08:38 Dose: 650 mg Amlodipine Besylate (Norvasc Tab*) 10 mg PO DAILY [facility] Last Admin: 07/21/18 10:03 Dose: 10 mg Clotrimazole (Clotrimazole 1%*) 1 applic TOPICAL BID [facility] Last Admin: 07/21/18 13:23 Dose: 1 applic Dextrose (D50w Syringe 50 Ml*) 12.5 gm IV PUSH .FOR FS < 60 - SS PRN PRN Reason: FS < 60 Enoxaparin Sodium (Lovenox(*)) 40 mg SUBCUT Q24H [facility] Last Admin: 07/20/18 20:40 Dose: 40 mg Hydralazine HCl (Apresoline Iv*) 5 mg IV SLOW PU Q6H PRN PRN Reason: SBP > 180 Ibuprofen (Motrin Tab*) 600 mg PO Q8H PRN PRN Reason: PAIN Insulin Human Lispro (Humalog*) 0 units SUBCUT AC [facility]; Protocol Last Admin: 07/21/18 13:22 Dose: 1 unit Levothyroxine Sodium (Synthroid Tab*) 50 mcg PO 0600 [facility] Last Admin: 07/21/18 05:23 Dose: 50 mcg Lidocaine (Lidoderm 5% Patch*) 1 patch TRANSDERM DAILY [facility] Last Admin: 07/21/18 10:13 Dose: Not Given Lisinopril (Prinivil Tab*) 40 mg PO DAILY [facility] Last Admin: 07/21/18 10:03 Dose: 40 mg Melatonin (Melatonin) 3 mg PO BEDTIME [facility]; Protocol Last Admin: 07/20/18 20:38 Dose: 3 mg Metoprolol Tartrate (Lopressor Tab*) 50 mg PO BID [facility] Last Admin: 07/21/18 10:04 Dose: 50 mg Multivitamins (Theragran Tab*) 1 tab PO DAILY [facility] Last Admin: 07/21/18 10:04 Dose: 1 tab Nystatin (Nystatin Top Powder*) 1 applic TOPICAL BID [facility] Last Admin: 07/21/18 13:23 Dose: 1 applic Oxycodone/Acetaminophen (Percocet 5/325 Tab*) 1 tab PO Q4H PRN PRN Reason: PAIN Last Admin: 07/20/18 16:48 Dose: 1 tab Pharmacy Profile Note (Lidocaine Patch Remove*) 1 note PATCH OFF 0400 [facility] Last Admin: 07/21/18 05:24 Dose: 1 note Tramadol HCl (Ultram*) 50 mg PO Q6H PRN PRN Reason: PAIN Last Admin: 07/20/18 20:37 Dose: 50 mg Allergies: hydrochlorothiazide Allergy (Verified 07/19/18 12:59) See Comment Hyponatremia atorvastatin [From Lipitor] Adverse Reaction (Verified 07/19/18 12:52) Muscle Ache [id number]-[id number]-[id number] Reductase Inhibitor Adverse Reaction (Verified 07/19/18 12:59) Muscle Ache Social History: This patient lives at home alone and has an aide at times for assistance. Former smoker. ROS: Full ROS completed. Pertinent findings stated in HPI. Physical Exam: Vital Signs: Temp Pulse Resp BP Pulse Ox 97.1 F 52 20 142/68 95 07/21/18 11:09 07/21/18 11:09 07/21/18 11:09 07/21/18 11:09 07/21/18 11:09 General: Alert and NAD, recumbent in bed. HEENT: Head is normocephalic and atraumatic. PERRL, EOMI. Gross hearing intact. Neck: Supple, symmetric. No cervical spine tenderness. Limited ROM. CV: Radial and pedal pulses 2+ and equal bilaterally. Lungs: Breathing is nonlabored and lungs are clear. Abdomen: The abdomen is moderately rounded. Nontender, nondistended. NABS Neuro: Speech is clear, answers questions appropriately. Oriented to person, place and time. Strength in upper extremities 5/5 bilaterally. Strength in LLE 5 /5 with exception of hip flexor and quadricep 4/5, RLE 5/5. Sensation to light touch intact throughout. No pronator drift. Hoffmans negative. Biceps DTR 2+ bilaterally. Tremor bilateral hands left worse than right. Extremities: Ecchymosis to the bilateral upper extremities. No pedal edema. Imagin. MRI of the cervical spine shows degenerative disc disease, spondylosis C3-4 worse to the right, C5-6 bilaterally and spur/disc complex C6-7 to the left. Assessment and Plan: This is an 82 year old female with past medical history significant for HTN, diabetes, hypothyroidism, neck pain and LUE radiculopathy who presented to [facility] for evaluation of generalized weakness and neck pain. MRI of the cervical spine was obtained showing multilevel spondylosis and disc displacement C6-7 left. MRI was discussed with the patient and her son. Given the patient's age, medical history, mobility and other factors surgery is likely not the best option for her. The patient is not interested in considering surgery. We discussed participating in rehab and physical therapy; she and her son agree with this plan. This case, plan and imaging was discussed with Dr. Enamorado and Marzena Rodriguez, SWATHI.
[2018-07-21] MEDS: Carbidopa/Levodop 25/100 MG TAB(*) PO SCH ×2 (17:40→21:18)
--- NOTE | 2018-07-21 19:16 | CONS ---
NEUROLOGY CONSULTATION: DATE OF CONSULT: 07/21/18 LOCATION: She is an inpatient and she is in room 447. REFERRING PROVIDER: Marzena Rodriguez NP. PRIMARY CARE PROVIDER: Dr. Adkins. CHIEF COMPLAINT: Weakness and tremor. 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 Also for about 2 years, she has noted a tremor. She had back surgery about 2 years ago and had some leg weakness after that, but was ambulating with a cane. For the last 1 year, her mobility has declined to where she is using a walker. She has noted a tremor in both hands, worse on the left than the right. With specific questions, she notes it is mainly when she is not using her hands and when she attempts to use her hands such as to control her walker, the tremor seems to improve. She feels very unsteady and is very cautious walking, but has not had any falls. She occasionally gets lightheaded when she stands, but no faints. She has noted that her handwriting is deteriorated and it is "terrible." She notes that her left leg in particular seems to drag and is stiff. She also feels that her left arm is worse in terms of mobility. She has not noticed any problems with speech and no problems with swallowing. Her family agrees her speech is unchanged. She had some problems with diarrhea as complications of medications, but other than that no gastrointestinal problems. She feels she sleeps well. There is no history of antiemetic or neuroleptic exposure. PAST MEDICAL HISTORY: Notable for lumbar surgery, hypertension, diabetes, hypothyroidism. MEDICATIONS ON ADMISSION: Include: 1. Glipizide. 2. Lisinopril 40 mg p.o. daily. 3. Multivitamin. 4. Naproxen. 5. Metoprolol 50 mg p.o. b.i.d. 6. Levothyroxine 25 mcg per day. ALLERGIES: She is allergic to HYDROCHLOROTHIAZIDE and STATINS. REVIEW OF SYSTEMS: Negative for falls, no history of heart disease. She denies numbness or pain in her feet. No problems with choking or coughing when she eats. PHYSICAL EXAM: She is a little overweight. Vital signs notable for temperature 97.1, blood pressure 142/68, heart rate in the 50s, respiratory rate 20, and oxygen saturation is 95% on room air. Heart tones are distant and there is grade 1 to 2/6 early systolic murmur left upper sternal border. There are no cervical bruits. Oral mucosa is moist. Neurologic Exam: Pupils react equally from 3 down to 2 mm. Funduscopic exam reveals sharp disks bilaterally. Visual olsen are full to confrontation. Eye movements are normal. Facial musculature is notable for grade 2 hypomimia. Speech is soft, but clear. She has a mild tongue tremor when she protrudes it. Hearing is intact. Motor exam reveals cogwheel rigidity, much more over the left side than the right and more in the left hand than the left arm. There is intermittent rest tremor more in the left hand, but also present in the right. Finger taps have low excursion bilaterally, worse on the left. Reflexes are trace, ankle reflexes are absent. Plantar responses are flexor on the right and equivocal on the left. I do not attempt to ambulate her. Sensation to light touch was normal in the limbs. She is alert and oriented and is an excellent detailed historian. Memory is intact and language is fluent. She has good attention, concentration, and fund of knowledge. DIAGNOSTIC STUDIES/LAB DATA: Notable for unremarkable CBC, chemistries notable for a glucose of 132 yesterday and 148 today. Chemistry profile is otherwise unremarkable. Urinalysis is negative. She had an MRI of her cervical spine, which I had reviewed previously. It reveals multilevel degenerative disk disease, but no significant central canal stenosis or intrinsic code abnormalities. A CT of the brain this admission interpreted as showing involutional changes only. IMPRESSION: Impression is that of Parkinson disease. 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 I explained my impression to Monica and her family, which includes her 3 sons and 1 [id number]. I recommended a trial of Sinemet. I reviewed potential side effects including dyskinesias, nausea, and fatigue, also occasionally lightheadedness. I think she would benefit from physical therapy or rehab stay. She is probably deconditioned as well. We will go ahead and start Sinemet this evening and plan on giving it 3 times per day tomorrow. I will follow up on her tomorrow and while she is here in the hospital. She will need followup as an outpatient ultimately in my office as well. [id number]/[facility] #: [id number] MIR
[2018-07-21] MEDS: Enoxaparin(*) 40 MG/0.4 ML SYR SUBCUT SCH (21:17)
[2018-07-21] MEDS: Melatonin 3 MG TAB PO SCH (21:18)
[2018-07-22] MEDS: Lidocaine Patch REMOVE* 1 NOTE MISC PATCH OFF SCH (02:15)
[2018-07-22] MEDS: Levothyroxine TAB* 50 MCG TAB PO SCH (05:37)
[2018-07-22] MEDS: Insulin LISPRO* 1 UNITS UNIT SUBCUT SCH ×3 (07:57→17:28)
[2018-07-22] MEDS: Vitamin THERAPEUTIC TAB PO SCH (08:18)
[2018-07-22] MEDS: Lidocaine PATCH 5%* 1 PATCH TRANSDERM SCH (08:18)
[2018-07-22] MEDS: Carbidopa/Levodop 25/100 MG TAB(*) PO SCH ×3 (08:18→20:57)
[2018-07-22] MEDS: Metoprolol Tartrate TAB* 50 mg PO SCH ×2 (08:18→20:57)
[2018-07-22] MEDS: Lisinopril TAB* 10 MG PO SCH (08:18)
[2018-07-22] MEDS: Nystatin TOP POWDER* 15 GM BTL TOPICAL SCH ×2 (08:18→20:57)
[2018-07-22] MEDS: Clotrimazole 1% CREAM* 45 GM TOPICAL SCH ×2 (08:18→20:57)
[2018-07-22] MEDS: amLODIPine TAB* 5 MG PO SCH (08:18)
--- NOTE | 2018-07-22 10:40 | PN ---
Subjective Date of Service: 07/22/18 Interval History: Ms. Tariq reports feeling well today. She is excited about the option to go to [facility]. Objective Active Medications: Acetaminophen (Tylenol Tab*) 650 mg PO Q4H PRN Amlodipine Besylate (Norvasc Tab*) 10 mg PO DAILY [facility] Carbidopa/Levodopa (Sinemet 25/100 Tab(*)) 1 tab PO TID [facility] Clotrimazole (Clotrimazole 1%*) 1 applic TOPICAL BID [facility] Dextrose (D50w Syringe 50 Ml*) 12.5 gm IV PUSH .FOR FS < 60 - SS PRN Enoxaparin Sodium (Lovenox(*)) 40 mg SUBCUT Q24H [facility] Hydralazine HCl (Apresoline Iv*) 5 mg IV SLOW PU Q6H PRN Ibuprofen (Motrin Tab*) 600 mg PO Q8H PRN Insulin Human Lispro (Humalog*) 0 units SUBCUT AC [facility]; Protocol Levothyroxine Sodium (Synthroid Tab*) 50 mcg PO 0600 [facility] Lidocaine (Lidoderm 5% Patch*) 1 patch TRANSDERM DAILY [facility] Lisinopril (Prinivil Tab*) 40 mg PO DAILY [facility] Melatonin (Melatonin) 3 mg PO BEDTIME [facility]; Protocol Metoprolol Tartrate (Lopressor Tab*) 50 mg PO BID [facility] Multivitamins (Theragran Tab*) 1 tab PO DAILY [facility] Nystatin (Nystatin Top Powder*) 1 applic TOPICAL BID [facility] Oxycodone/Acetaminophen (Percocet 5/325 Tab*) 1 tab PO Q4H PRN Pharmacy Profile Note (Lidocaine Patch Remove*) 1 note PATCH OFF 0400 [facility] Tramadol HCl (Ultram*) 50 mg PO Q6H PRN Vital Signs: Temp Pulse Resp BP Pulse Ox 98.3 F 57 14 147/66 99 07/22/18 07:33 07/22/18 07:33 07/22/18 07:44 07/22/18 07:33 07/22/18 07:33 Oxygen Devices in Use Now: None Appearance: Female lying in bed in NAD Eyes: No Scleral Icterus Ears/Nose/Mouth/Throat: Mucous Membranes Moist Neck: Trachea Midline Respiratory: Symmetrical Chest Expansion and Respiratory Effort, Clear to Auscultation Cardiovascular: NL Sounds; No Murmurs; No JVD, No Edema Abdominal: NL Sounds; No Tenderness; No Distention Extremities: No Edema Skin: No Rash or Ulcers Neurological: Alert and Oriented x 3 Nutrition: Taking PO's Result Diagrams: 07/20/18 07:24 07/20/18 07:24 Assess/Plan/Problems-Billing Assessment: Ms. Tariq is an 82 yo female with a PMH of DM and HTN who was admitted on with weakness and tremor with difficulty caring for self at home, found to have Parkinson's. - Patient Problems (1) Parkinson disease Comment: - Appreciate neurology consult, high suspicion for parkinson's - Start sinemet. - Appreciate PT eval, will need rehab. (2) Neck pain Comment: - Xray negative - MRI cervical spine with severe multilevel disk degeneration, neurosurgery to eval - Continue ibuprofen, tramadol and oxycodone prn (3) Hypertension Comment: - BP controlled now that she is back on home meds (4) Hypothyroidism Comment: - TSH 1.91 - Continue levothyroxine (5) Diabetes Comment: - BGs 90-150s - Hold glipizide and metformin, continue lispro SSI coverage with meals (6) Urmila infection Comment: - Under breasts, continue nystatin (7) DVT prophylaxis Comment: - Lovenox (8) DNR (do not resuscitate) Status and Disposition: Inpatient. Discharge to [facility].
--- NOTE | 2018-07-22 17:58 | CONS ---
NEUROLOGY FOLLOWUP NOTE: DATE OF FOLLOWUP: 07/22/18 LOCATION: She is in room 447. HOSPITALIST: Marzena Rodriguez NP CHIEF COMPLAINT: Parkinson disease. INTERVAL HISTORY: Since yesterday, Ms. Tariq has received Sinemet 2 doses yesterday and so far 2 today. She notes an improvement. She feels her tremor is improved specifically. She notes her left leg is still pretty stiff. She has not had any problems with nausea or lightheadedness. She is quite pleased with how things are going. She says that the plan is for her to go to the physical medicine rehab unit tomorrow. MEDICATIONS: Reviewed and she is on: 1. Sinemet 25/100 one tablet p.o. t.i.d. 2. Amlodipine 10 mg p.o. daily. 3. Lovenox 40 mg subcutaneous q.24 hours. 4. Sliding scale insulin. 5. Levothyroxine 50 mcg p.o. daily. 6. Lisinopril 40 mg p.o. daily. 7. Metoprolol 50 mg p.o. b.i.d. 8. Oxycodone 5/325 one q.4 hours as needed for pain. PHYSICAL EXAMINATION: She is well nourished and well hydrated. Temperature 98.2, blood pressure 121/56, heart rate in the 50s, respiratory rate is 16, and oxygen saturation is 98% on room air. Neurological Exam: She has grade 1 hypomimia. She has full eye movements. Speech is soft, but clear. She has mild intermittent rest tremor in the left hand only. She has some rigidity mainly in the left leg and to a lesser extent in the left arm. I really do not detect any rigidity in the right arm, but there is a little bit in the right leg. She is alert and oriented, in good spirits. Memory is intact and language is fluent. LABORATORY DATA: Notable for glucose of 151 today and otherwise no new laboratory data. IMPRESSION: Parkinson disease. So far she is responding favorably to Sinemet. She may need dose adjustments in the future. I think a physical medicine rehab stay could be very beneficial for her. She is probably deconditioned and has some limited range of motion that could benefit. I will try to see her once again on Friday down in the rehab unit. I plan to see her in my office in followup in about a month or so. [id number]/[facility] #: [id number]
[2018-07-22] MEDS: Enoxaparin(*) 40 MG/0.4 ML SYR SUBCUT SCH (20:56)
[2018-07-22] MEDS: Melatonin 3 MG TAB PO SCH (20:57)
--- NOTE | 2018-07-22 22:05 | DS ---
CC: Dr. Adkins * [facility] MEDICINE DISCHARGE SUMMARY: DATE OF ADMISSION: 07/19/18 DATE OF DISCHARGE: PRIMARY CARE PHYSICIAN: Dr. Adkins. ATTENDING PHYSICIAN: Kimberly Greer MD * (dictation provided by Marzena Rodriguez NP ) PRIMARY DIAGNOSIS: Parkinson's. SECONDARY DIAGNOSES: 1. Lumbar stenosis. 2. Cervical spine stenosis. 3. Type 2 diabetes. 4. Hypertension. 5. Hypothyroidism. PAST SURGICAL HISTORY: 1. Umbilical hernia repair. 2. Tonsillectomy. 3. D and C. 4. Lumbar surgery. MEDICATIONS: At the time of discharge are: 1. Naproxen 440 mg p.o. daily. 2. Multivitamin with mineral 1 cap p.o. daily. 3. [place]-3 fatty acid 1 cap p.o. daily. 4. Metoprolol tartrate 50 mg p.o. b.i.d. 5. Lisinopril 40 mg p.o. daily. 6. Glipizide 2.5 mg p.o. b.i.d. 7. Amlodipine 10 mg p.o. daily. 8. Levothyroxine 50 mcg p.o. daily. 9. Metformin 1000 mg p.o. b.i.d. 10. Tramadol 50 mg p.o. q.6 hours p.r.n. 11. Oxycodone/acetaminophen 1 tab p.o. q.4 hours p.r.n. 12. Nystatin topically b.i.d. 13. Melatonin 3 mg p.o. at bedtime. 14. Lidocaine patch 5% 1 patch transdermally daily. 15. Ibuprofen 600 mg p.o. q.8 hours p.r.n. 16. Clotrimazole 1% 1 application topically b.i.d. 17. Sinemet 25/100 one tab p.o. t.i.d. 18. Tylenol 650 mg p.o. q.4 hours p.r.n. HOSPITAL COURSE: Ms. Tariq is an 82-year-old female who presented to the hospital on 07/19/18 with concern for progressive weakness and shaking. Please see the dictated H and P from Tatum Dumont NP for complete details. In brief, the patient states she had progressive weakness and shaking for at least a month or more. She denied any specific complaint. She had been working outpatient with her providers to secure additional assistance in the home, but as she became progressively weakened, she came to the emergency room for evaluation. In the emergency room, we suspected that her weakness was related to deconditioning. However, there was concern that she did have an elevated troponin. Her workup included a chest x-ray, which showed hyperinflation and no active cardiopulmonary disease. She had a CT brain, which showed no acute pathology. She had a shoulder x-ray, which showed osteoarthritis, but no acute osseous injury. Her labs showed no leukocytosis. Her hemoglobin was 16, it was suspected to be related to dehydration. Her BUN and creatinine were normal. Her first troponin was 0.01, second was 0.04. Her urine showed no evidence of infection. Ms. Tariq was admitted to the hospital. Further workup included a transthoracic echocardiogram, which showed a normal ejection fraction of 55% to 60% with no evidence of significant valvular abnormalities. Because of a complaint of neck pain and radiating into her left arm, she had a cervical spine MRI, which showed "multilevel degenerative disk disease with neural foraminal narrowing, moderate-to- severe right neural foraminal narrowing at C2- C3, severe right and moderate-to- severe left at C3-C4, moderate bilateral at C4 -C5, severe bilateral at C5-C6 and severe left neural foraminal narrowing at C6- C7, moderate spinal canal stenosis at C3-C4, C4-C5 and C6-C7, no abnormal spinal cord signal is seen." For the cervical spine MRI abnormalities and her pain, she did have consultation with the neurosurgical team. I will refer you to their note for complete details, but in brief, it was discussed with them that because of the patient's age, medical history, mobility and other factors, surgery was not likely the best option for her and the family and the patient were not interested in considering surgery. Ms. Tariq had a resting tremor and generalized weakness and for that reason, was seen in consultation by Dr. Claudio from the neurology team out of concern for possible Parkinson's. Dr. Claudio did examine the patient and determined the fact she does have Parkinson's. He recommended trialing Sinemet, which has been started. Ms. Tariq has been doing well. It is our hope that with Sinemet and further rehabilitation for her generalized deconditioning that she will be able to return to home to independent living. She has been accepted to [facility]. DISPOSITION: To PM. DIET: Regular. ACTIVITY: As tolerated. FOLLOWUP PLANS: Please follow up with Dr. Claudio within 1 month regarding new diagnosis of Parkinson's. TIME SPENT: Approximately 60 minutes was spent on the discharge of this patient , more than half the time was spent with the patient at the bedside reviewing the events leading up to this hospitalization and during this hospitalization, performing the physical examination, and reviewing my plan of care. MARZENA RODRIGUEZ NP [id number]/CPS #: [id number] MIR
[2018-07-23] MEDS: Lidocaine Patch REMOVE* 1 NOTE MISC PATCH OFF SCH (00:58)
[2018-07-23] MEDS: Levothyroxine TAB* 50 MCG TAB PO SCH (05:15)
[2018-07-23 07:25] VITALS: BP 140/100
[2018-07-23] MEDS: Insulin LISPRO* 1 UNITS UNIT SUBCUT SCH (07:36)
[2018-07-23] MEDS ORDERED: Magnesium Hydroxide LIQ* 30 ML UDC PO PRN (08:26)
[2018-07-23] MEDS: Carbidopa/Levodop 25/100 MG TAB(*) PO SCH (08:42)
[2018-07-23] MEDS: amLODIPine TAB* 5 MG PO SCH (08:42)
[2018-07-23] MEDS: Metoprolol Tartrate TAB* 50 mg PO SCH (08:42)
[2018-07-23] MEDS: Lisinopril TAB* 10 MG PO SCH (08:42)
[2018-07-23] MEDS: Nystatin TOP POWDER* 15 GM BTL TOPICAL SCH (08:43)
[2018-07-23] MEDS: Lidocaine PATCH 5%* 1 PATCH TRANSDERM SCH (08:43)
[2018-07-23] MEDS: Vitamin THERAPEUTIC TAB PO SCH (08:43)
[2018-07-23] MEDS: Clotrimazole 1% CREAM* 45 GM TOPICAL SCH (08:43)
[2018-07-23] MEDS ORDERED: Lidocaine Patch REMOVE* 1 NOTE MISC PATCH OFF SCH (21:00)
== END 2018-07-23 09:41 | DRG 57 ==
LOC: ED 12:36 → MEDTELE 16:28 → OBSVTOIN 07-20 17:00
PROVIDERS: ADMIT Internal Medicine; ATTEND Internal Medicine
DX: G20 Parkinson's disease (principal); E03.9 Hypothyroidism, unspecified; I10 Essential (primary) hypertension; M48.061 Spinal stenosis, lumbar region without neurogenic claudication; F41.9 Anxiety disorder, unspecified; Z66 Do not resuscitate; R74.8 Abnormal levels of other serum enzymes; B37.9 Candidiasis, unspecified; E78.00 Pure hypercholesterolemia, unspecified; M17.0 Bilateral primary osteoarthritis of knee; E66.9 Obesity, unspecified; R40.2362 Coma scale, best motor response, obeys commands, at arrival to emergency department; R40.2142 Coma scale, eyes open, spontaneous, at arrival to emergency department; R40.2252 Coma scale, best verbal response, oriented, at arrival to emergency department; R29.702 NIHSS score 2; I16.0 Hypertensive urgency; M50.30 Other cervical disc degeneration, unspecified cervical region; G89.29 Other chronic pain; M48.02 Spinal stenosis, cervical region; M47.812 Spondylosis without myelopathy or radiculopathy, cervical region; Z23 Encounter for immunization; Z88.8 Allergy status to other drugs, medicaments and biological substances; Z82.49 Family history of ischemic heart disease and other diseases of the circulatory system; Z83.3 Family history of diabetes mellitus; Z80.3 Family history of malignant neoplasm of breast; Z87.891 Personal history of nicotine dependence; Z88.1 Allergy status to other antibiotic agents; Z91.048 Other nonmedicinal substance allergy status; Z79.4 Long term (current) use of insulin; Z80.9 Family history of malignant neoplasm, unspecified; Z68.29 Body mass index [BMI] 29.0-29.9, adult
CPT/HCPCS: 36415; 70450; 71045; 72141; 80048; 80053; 81003; 82550; 82553; 83605; 83735; 83880; 84436; 84443; 84484; 85025; 85379; 85610; 86140; 90686; 93005; 93306; 99283; A9270-GY; G0378; G8978-GP-CL; G8979-GP-CJ; G8987-GO-CL; G8988-GO-CI; J1650; J3490

== ENCOUNTER 2018-07-23 07:02 | Inpatient (IN) | payer MEDICARE ==
--- OUTSIDE RECORDS SUMMARY | 2018-07-23 09:46 | XMS REPORT | Continuity of Care Document ---
:1935 External Reference #:[id number] Author Name Daysi Pham Care Team Providers Name Role Phone Lina Adkins MD Care Team Information Wood Room Hand Unavailable Lina Adkins MD Primary Care Physician Unavailable Payers Type Date Identification Numbers Payment Provider Subscriber Effective: 1999 Policy Number: [id number] Medicare Magno Tariq PayID: [id number] [address] [place] [address] Policy [address]: [id number] [facility] Magno Tariq PayID: [id number] [address] [place] [address] Advance Directives Description No Information Available Problems Date Description Provider Status Onset: 07/15/2013 Mixed hyperlipidemia Lina Adkins M.D. Active Onset: 07/15/2013 Type 2 diabetes mellitus Lina Adkins M.D. Active Onset: 07/15/2013 Hypothyroidism Lina Adkins M.D. Active Onset: 07/15/2013 Essential hypertension Lina Adkins M.D. Active Onset: 07/15/2013 Localized, primary osteoarthritis of Lina Adkins M.D. Active the lower leg Onset: 01/26/2014 Obesity Lina Adkins M.D. Active Onset: 05/17/2015 Pure hypercholesterolemia Lina Adkins M.D. Active Onset: 05/17/2015 Immunization Lina Adkins M.D. 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 Active Onset: 01/08/2016 Spinal stenosis of lumbar region Slade Enamorado M.D. Active Onset: 02/21/2016 Convalescence after surgery Slade Enamorado M.D. 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 ) ETOH Use Denies alcohol use Tobacco Use Start: Unknown End: Patient is a former Unknown smoker Recreational Drug Use Denies Drug Use Exercise Type/Frequency Exercises rarely Allergies, Adverse Reactions, Alerts Date Description Reaction Status Severity Comments 07/06/2013 Seasonal Active 07/06/2013 Statins muscle pain, weakness Active 07/06/2013 Hydrochlorothiazide low sodium Active 07/06/2013 Ciprofloxacin muscle cramps Active 10/26/2013 Hydralazine Active Moderate 07/06/2013 NKDA Inactive Medications Medication Date Status Form Strength Qnty SIG Indications Ordering Provider Metformin HCL 08/19/ Active Tablets 1000mg 180tab Take 1 Lina 2016 s Tablet By Kathie Adkins.DYanet Twice A Day [place] 02/11/ Active Tablets 5-325mg 60tabs 1 by mouth Slade 2015 every 4 [place], hours as M.D. needed pain Meloxicam 11/22/ Active Tablets 7.5mg 60tabs 1 by mouth M54.17 Lina 2015 twice a Adkins, day as M.D. needed for pain Glipizide 11/22/ Active Tablets 5mg 60tabs Take Lina 2015 One-Half Adkins, Tablet By M.DYanet Mouth Twice A Day Metoprolol 11/18/ Active Tablets 50mg 180tab Take 1 Lina Tartrate 2014 s Tablet By Jed Mouth M.DYanet Twice A Day Levothyroxine 08/08/ Active Tablets 50mcg 90tabs Take 1 Lina Sodium 2015 Tablet By Jed Mouth M.D. Every Day Lisinopril 09/09/ Active Tablets 40mg 90tabs Take 1 Lina 2013 Tablet By Adkins, Mouth M.D. Every Day Relion Prime / Active Strips check once Unknown Blood Glucose 0000 a day Test Strips Aspirin Ec / Active Tablets DR 81mg 90tabs 1 tablet Unknown Lo-Dose 0000 daily. Keflex / Active Capsules 500mg 30caps one tablet three [place], times a M.D. day x 10 days Norvasc / Active Tablets 10mg 90tabs Take 1 Lina Tablet By Adkins, Mouth M.D. Every Day Tramadol HCL 01/07/ Hx Tablets 50mg 60tabs 1 by mouth M48.06 Slade 2015 - every 6 [place], 02/19/ hours as M.D. 2016 needed pain Alprazolam 11/28/ Hx Tablets 0.5mg 1tabs 1po x 1 30 Lina 2016 - min prior Jed, 02/19/ to M.D. 2016 procedure Percocet 11/08/ Hx Tablets 5-325mg 60tabs 1-2 tab Lina 2015 - by mouth Jed, 02/19/ every 8 M.D. 2016 hours as needed pain Levothyroxine 08/08/ Hx Tabs 1 po qd Lina Sodium 2014 - Jed, 08/08/ M.D. 2015 Tricor 08/08/ Hx Tablets 145mg 90tabs 1 by mouth 272.2 Lina 2014 - every day Adkins, 11/22/ M.D. 2016 Bystolic 08/08/ Hx Tablets 10mg 30tabs 1 by mouth 401.9 Lina 2014 - every day Jed, 08/09/ M.D. 2015 Levothyroxine 09/09/ Hx Tablets 0.05mcg 90tabs 1 po qd Lina Sodium 2013 - Jed, 08/08/ M.D. 2015 Metformin HCL 07/06/ Hx Tablets 1000mg 180tab 1 by mouth E11.9 Lina 2012 - s twice a Jed, 02/19/ day M.D. 2016 Ultracet 07/06/ Hx Tablets 37.5-325mg 60tabs 1 po tid 715.16 Lina 2012 - as needed Jed, 06/14/ for pain M.D. 2013 Hydralazine HCL 07/06/ Hx Tablets 25mg 90tabs 1 po tid Lina 2012, 09/09/ M.D. 2013 Levoxyl 00/ Hx Tablets 0.05mg 90tabs 1 po qd Lina - , 10/26/ M.D. 2013 Metformin HCL 00/ Hx Tablets 500mg 360tab 2 in the Unknown 0000 - s morning 07/06/ and 2 at 2012 night Glipizide 00/ Hx Tablets 10mg 180tab 1 by mouth Lina 0000 - s twice a Adkins, M.D. 2015 Lisinopril 00/ Hx Tablets 40mg 90tabs 1 po qd Lina - , 07/06/ M.D. 2012 Metoprolol / Hx Tablets ER 50mg 180tab 1 by mouth Ilna Succinate ER 0000 - 24HR s twice a , M.D. 2014 Piroxicam 00/ Hx Capsules 20mg 20caps one Unknown 0000 - capsule po 07/06/ daily with 2013 food Hydrocodone / Hx Tablets 5-335mg 15tabs 1 tablet Unknown /Acetaminophen 0000 - by mouth 07/06/ every 4- 2012 6 hours as needed Aleve 00/ Hx Capsules 220mg 60caps 1 by mouth Unknown 0000 - twice a day as 2016 needed Metformin HCL 00/ Hx Tablets 500mg 60tabs 1 by mouth Lina 0000 - twice a , M.D. 2017 Immunizations CPT Code Status Date Vaccine Lot # [id number] Given 05/17/2015 Influenza Virus Vaccine, Quadrivalent, Split, [id number] Preservative Free [id number] Given 05/17/2015 Pneumococcal Conjugate Vaccine 13 Valent For [id number] Intramuscular Use [id number] Given 06/02/2014 Flu Vaccine Split Virus Preservative Free For Indiv [id number] Older [id number] Given 06/18/2007 Pneumonia Vaccine Vital Signs Date Vital Result Comment 03/29/2016 9:52am Height 69 inches 5'9" Weight 245.00 lb per patient Heart Rate 60 /min BP Systolic Sitting 138 mmHg BP Diastolic Sitting 74 mmHg Respiratory Rate 16 /min Pain Level 1 BMI (Body Mass Index) 36.2 kg/m2 03/13/2016 11:05am Height 69 inches 5'9" Weight 245.00 lb Heart Rate 78 /min BP Systolic Sitting 140 mmHg BP Diastolic Sitting 80 mmHg Pain Level 0 BMI (Body Mass Index) 36.2 kg/m2 02/21/2016 12:59pm Height 69 inches 5'9" Weight 245.00 lb Heart Rate 80 /min BP Systolic Sitting 126 mmHg BP Diastolic Sitting 82 mmHg Body Temperature 97.9 F Pain Level 3 BMI (Body Mass Index) 36.2 kg/m2 01/08/2016 10:04am Height 69 inches 5'9" Weight 245.00 lb wgt per pt -wheelchair Heart Rate 76 /min BP Systolic Sitting 140 mmHg BP Diastolic Sitting 80 mmHg Pain Level 5 BMI (Body Mass Index) 36.2 kg/m2 11/23/2015 11:31am Heart Rate 68 /min BP Systolic Sitting 142 mmHg BP Diastolic Sitting 84 mmHg Body Temperature 97.5 F Pain Level 8 L leg & hip O2 % BldC Oximetry 98 % 05/17/2015 10:23am Height 69 inches 5'9" Weight 259.00 lb Heart Rate 75 /min BP Systolic 154 mmHg BP Diastolic 81 mmHg Body Temperature 97.6 F O2 % BldC Oximetry 98 % BMI (Body Mass Index) 38.2 kg/m2 08/08/2014 10:07am Weight 261.75 lb Heart Rate 72 /min BP Systolic Sitting 160 mmHg BP Diastolic Sitting 80 mmHg Respiratory Rate 20 /min Body Temperature 97.0 F 01/26/2014 10:18am Weight 263.00 lb Heart Rate 74 /min BP Systolic Sitting 146 mmHg BP Diastolic Sitting 82 mmHg 10/26/2013 2:10pm Height 69 inches 5'9" stated height Weight 263.00 lb Heart Rate 80 /min Body Temperature 98.0 F BMI (Body Mass Index) 38.8 kg/m2 07/15/2013 11:01am Height 69 inches 5'9" stated height Weight 262.00 lb Heart Rate 73 /min BP Systolic Sitting 160 mmHg BP Diastolic Sitting 90 mmHg BMI (Body Mass Index) 38.7 kg/m2 07/06/2013 11:06am Height 69 inches 5'9" stated height Weight 265.50 lb Heart Rate 72 /min BP Systolic 186 mmHg BP Diastolic 104 mmHg BP Systolic Sitting 184 mmHg BP Diastolic Sitting 100 mmHg BMI (Body Mass Index) 39.2 kg/m2 Results Test Date Facility Test Result H/L Range Note Laboratory test 07/19/2018 [facility] Troponin-I 0.04 ng/mL High <0.[address] (TnI) [place] [address] [phone] CBC Auto Diff 07/19/2018 [facility] White Blood 7.0 10^3/uL N 3.5-10.[address] [place] [address] [phone] Red Blood Count 5.22 10^6/uL N 4.00-5.40 Hemoglobin 16.6 g/dL High 12.0-16.0 Hematocrit 48 % High 35-47 Mean Corpuscular Volume 92 fL N 80-97 Mean Corpuscular Hemoglobin 32 pg High 27-31 Mean Corpuscular HGB Conc 34 g/dL N 31-36 Red Cell Distribution Width 14 % N 10.5-15 Platelet Count 202 10^3/uL N 150-450 Mean Platelet Volume 8.1 fL N 7.4-10.4 Abs Neutrophils 4.9 10^3/uL N 1.5-7.7 Abs Lymphocytes 1.6 10^3/uL N 1.0-4.8 Abs Monocytes 0.4 10^3/uL N 0-0.8 Abs Eosinophils 0 10^3/uL N 0-0.6 Abs Basophils 0.1 10^3/uL N 0-0.2 Abs Nucleated RBC 0 10^3/uL Granulocyte % 70.3 % Lymphocyte % 23.0 % Monocyte % 5.4 % Eosinophil % 0.4 % Basophil % 0.9 % Nucleated Red Blood Cells % 0 Inr/Protime 07/19/2018 [facility] Inr 1.01 N 0.77-1.[address] [place] [address] [phone] Laboratory test 07/19/2018 [facility] D Dimer 212 N Less Than [address] Quantitative ng/[place] [address] [phone] B-Type Natriuretic Peptide BNP 84 pg/mL <=100 Lactic Acid 0.9 mmol/L N 0.5-2.0 3 Comp Metabolic Panel 07/19/2018 [facility] Sodium 139 mmol/L N 135-[address] [place] [address] [phone] Potassium 4.0 mmol/L N 3.5-5.0 Chloride 104 mmol/L N 101-111 Co2 Carbon Dioxide 27 mmol/L N 22-32 Anion Gap 8 mmol/L N 2-11 Glucose 120 mg/dL High 70-100 Blood Urea Nitrogen 16 mg/dL N 6-24 Creatinine 0.75 mg/dL N 0.51-0.95 BUN/Creatinine Ratio 21.3 High 8-20 Calcium 9.5 mg/dL N 8.6-10.3 Total Protein 6.5 g/dL N 6.4-8.9 Albumin 4.0 g/dL N 3.2-5.2 Globulin 2.5 g/dL N 2-4 Albumin/Globulin Ratio 1.6 N 1-3 Total Bilirubin 0.80 mg/dL N 0.2-1.0 Alkaline Phosphatase 61 U/L N 34-104 Alt 10 U/L N 7-52 Ast 17 U/L N 13-39 Egfr Non- 73.8 >60 Egfr 89.3 >60 4 Laboratory test 07/19/2018 [facility] Magnesium 2.1 mg/dL N 1.9-2.[address] [place] [address] [phone] Creatine Kinase(CK) 43 U/L N 10-223 Troponin-I (TnI) 0.01 ng/mL <0.04 5 CKMB 07/19/2018 [facility] CKMB ng/mL 1.4 ng/mL N 0.6-6.[address] [place] [address] [phone] Laboratory test 07/19/2018 [facility] Thyroxine 11.95 ?g/dL N 6.09-12.[address] [place] [address] [phone] TSH (Thyroid Stim Horm) 1.91 mcIU/mL N 0.34-5.60 Urinalysis Profile 07/19/2018 [facility] Urine Color Straw [address] [place] [address] [phone] Urine Appearance Clear Urine Specific [place] 1.008 Low 1.010-1.030 Urine pH 7.0 N 5-9 Urine Urobilinogen Negative Negative Urine Ketones Trace Abnormal Negative Urine Protein Negative Negative Urine Leukocytes Negative Negative Urine Blood Negative Negative Urine Nitrite Negative Negative Urine Bilirubin Negative Negative Urine Glucose Negative Negative Laboratory test 12/16/2017 [facility] TSH (Thyroid 1.98 mcIU/mL N 0.34-5.[address] Stim Horm) [place] [address] [phone] Comp Metabolic 12/16/2017 [facility] Sodium 140 mmol/L N 139- [address] [place] [address] [phone] Potassium 4.1 mmol/L N 3.5-5.0 Chloride 108 mmol/L N 101-111 Co2 Carbon Dioxide 27 mmol/L N 22-32 Anion Gap 5 mmol/L N 2-11 Glucose 142 mg/dL High 70-100 Blood Urea Nitrogen 21 mg/dL N 6-24 Creatinine 0.67 mg/dL N 0.51-0.95 BUN/Creatinine Ratio 31.3 High 8-20 Calcium 9.3 mg/dL N 8.6-10.3 Total Protein 6.3 g/dL Low 6.4-8.9 Albumin 4.0 g/dL N 3.2-5.2 Globulin 2.3 g/dL N 2-4 Albumin/Globulin Ratio 1.7 N 1-3 Total Bilirubin 0.60 mg/dL N 0.2-1.0 Alkaline Phosphatase 63 U/L N 34-104 Alt 11 U/L N 7-52 Ast 16 U/L N 13-39 Egfr Non- 84.1 >60 Egfr 108.1 >60 6 Lipid Profile 12/16/2017 [facility] Triglycerides 108 mg/dL 7 (Trig/Chol/HDL) [address] [place] [address] [phone] Cholesterol 200 mg/dL 8 HDL Cholesterol 46.1 mg/dL 9 LDL Cholesterol 132 mg/dL 10 Laboratory test 12/16/2017 [facility] Hemoglobin A1c 6.3 % High 4.0-5.6 11 finding 101 (Glyco HGB) [place] [address] [phone] Comp Metabolic 08/13/2016 [facility] Sodium 139 N 133-145 [address] mmol/[place] [address] [phone] Potassium 4.4 mmol/L N 3.5-5.0 Chloride 106 mmol/L N 101-111 Co2 Carbon Dioxide 26 mmol/L N 22-32 Anion Gap 7 mmol/L N 2-11 Glucose 141 mg/dL High 70-100 Blood Urea Nitrogen 24 mg/dL N 6-24 Creatinine 0.73 mg/dL N 0.51-0.95 BUN/Creatinine Ratio 32.9 High 8-20 Calcium 9.2 mg/dL N 8.6-10.3 Total Protein 6.3 g/dL Low 6.4-8.9 Albumin 3.8 g/dL N 3.2-5.2 Globulin 2.5 g/dL N 2-4 Albumin/Globulin Ratio 1.5 N 1-3 Total Bilirubin 0.40 mg/dL N 0.2-1.0 Alkaline Phosphatase 53 U/L N 34-104 Alt 11 U/L N 7-52 Ast 15 U/L N 13-39 Egfr Non- 76.5 N >60 Egfr 98.4 N >60 13 Laboratory test 08/13/2016 [facility] TSH (Thyroid 3.21 mcIU/mL N 0.34-5.60 [address] Stim Horm) [place], [place] [id number] [phone] Hemoglobin A1c (Glyco HGB) 6.3 % High Less than 6.0 15 Lipid Profile 08/13/2016 [facility] Triglycerides 128 mg/dL N 16 (Trig/Chol/HDL) [address] [place] [address] [phone] Cholesterol 220 mg/dL N 17 HDL Cholesterol 50.9 mg/dL N 18 LDL Cholesterol 144 mg/dL N 19 Wound 03/08/2016 [facility] Wound/Misc SEE 20, 21 Culture/Sensi [address] Culture-[place] [address] Stain BELOW [phone] Laboratory test 03/08/2016 [facility] MRSA/S. aureus SEE [address] Ssti [place] [address] BELOW [phone] Laboratory test 02/08/2016 [facility] Point of Care 159 mg/dL High 74- [address] Glucose 106 [place] [address] [phone] CBC No Diff 02/02/2016 [facility] White Blood 8.5 N 3.[address] Count 10^3/uL -10 [place] [address] .8 [phone] Red Blood Count 5.31 10^6/uL N 4.0-5.4 Hemoglobin 16.0 g/dL N 12.0-16.0 Hematocrit 48 % High 35-47 Mean Corpuscular Volume 91 fL N 80-97 Mean Corpuscular Hemoglobin 30 pg N 27-31 Mean Corpuscular HGB Conc 33 g/dL N 31-36 Red Cell Distribution Width 14 % N 10.5-15 Platelet Count 264 10^3/uL N 150-450 Mean Platelet Volume 9 um3 N 7.4-10.4 Basic Metabolic Panel 02/02/2016 [facility] Sodium 139 mmol/L N 133-[address] [place] [address] [phone] Potassium 3.9 mmol/L N 3.5-5.0 Chloride 103 mmol/L N 101-111 Co2 Carbon Dioxide 24 mmol/L N 22-32 Anion Gap 12 mmol/L High 2-11 Glucose 109 mg/dL High 70-100 Blood Urea Nitrogen 19 mg/dL N 6-24 Creatinine 0.69 mg/dL N 0.51-0.95 BUN/Creatinine Ratio 27.5 High 8-20 Calcium 9.8 mg/dL N 8.6-10.3 Egfr Non- 81.7 N >60 Egfr 105.0 N >60 24 Laboratory test 11/23/2015 [facility] TSH (Thyroid 2.29 ?IU/mL N 0.34-5.60 [address] Stim Horm) [place] [address] [phone] Free T4 (Free Thyroxine) 1.20 ng/dL High 0.61-1.12 26 T3 Free 2.70 pg/mL N 2.5-3.9 27 CBC Auto Diff 11/23/2015 [facility] White Blood 7.2 10^3/uL N 3.5-10.[address] [place] [place] [address] [phone] Red Blood Count 5.15 10^6/uL N 4.0-5.4 Hemoglobin 15.2 g/dL N 12.0-16.0 Hematocrit 48 % High 35-47 Mean Corpuscular Volume 92 fL N 80-97 Mean Corpuscular Hemoglobin 30 pg N 27-31 Mean Corpuscular HGB Conc 32 g/dL N 31-36 Red Cell Distribution Width 14 % N 10.5-15 Platelet Count 253 10^3/uL N 150-450 Mean Platelet Volume 9 um3 N 7.4-10.4 Abs Neutrophils 4.6 10^3/uL N 1.5-7.7 Abs Lymphocytes 2.1 10^3/uL N 1.0-4.8 Abs Monocytes 0.4 10^3/uL N 0-0.8 Abs Eosinophils 0.1 10^3/uL N 0-0.6 Abs Basophils 0.1 10^3/uL N 0-0.2 Abs Nucleated RBC 0.02 10^3/uL N Granulocyte % 64.2 % N 38-83 Lymphocyte % 28.5 % N 25-47 Monocyte % 5.9 % N 1-9 Eosinophil % 0.7 % N 0-6 Basophil % 0.7 % N 0-2 Nucleated Red Blood Cells % 0.3 N Comp Metabolic Panel 11/23/2015 [facility] Sodium 137 mmol/L N 133-145 [address] [place] [address] [phone] Potassium 4.2 mmol/L N 3.5-5.0 Chloride 103 mmol/L N 101-111 Co2 Carbon Dioxide 25 mmol/L N 22-32 Anion Gap 9 mmol/L N 2-11 Glucose 116 mg/dL High 70-100 Blood Urea Nitrogen 18 mg/dL N 6-24 Creatinine 0.77 mg/dL N 0.51-0.95 BUN/Creatinine Ratio 23.4 High 8-20 Calcium 9.6 mg/dL N 8.6-10.3 Total Protein 6.8 g/dL N 6.4-8.9 Albumin 4.5 g/dL N 3.2-5.2 Globulin 2.3 g/dL N 2-4 Albumin/Globulin Ratio 2.0 N 1-3 Total Bilirubin 0.50 mg/dL N 0.2-1.0 Alkaline Phosphatase 47 U/L N 34-104 Alt 15 U/L N 7-52 Ast 19 U/L N 13-39 Egfr Non- 71.9 N >60 Egfr 92.5 N >60 28 Laboratory test 11/23/2015 [facility] Hemoglobin A1c 5.6 5-7 finding Laboratory test 05/17/2015 [facility] Hemoglobin A1c 6.3 5-7 finding Lipid Profile 07/21/2014 [facility] Triglycerides 197 mg/dL N 29 (Trig/Chol/HDL) [address] [place] [address] [phone] Cholesterol 240 mg/dL N 30 HDL Cholesterol 43.8 mg/dL N 31 LDL Cholesterol 157 mg/dL N 32 Laboratory test 07/21/2014 [facility] Hemoglobin A1c 6.2 % High Less than [address] 6.0 [place] [address] [phone] Basic Metabolic 07/21/2014 [facility] Sodium 139 N 133-[address] mmol/[place] [address] [phone] Potassium 4.0 mmol/L N 3.5-5.0 Chloride 106 mmol/L N 101-111 Co2 Carbon Dioxide 24 mmol/L N 22-32 Anion Gap 9 mmol/L N 2-11 Glucose 163 mg/dL High 70-100 Blood Urea Nitrogen 17 mg/dL N 6-24 Creatinine 0.67 mg/dL N 0.51-0.95 BUN/Creatinine Ratio 25.4 High 8-20 Calcium 9.4 mg/dL N 8.6-10.3 Egfr Non- 84.9 N >60 Egfr 109.2 N >60 34 Laboratory test 01/26/2014 [facility] Hemoglobin A1c 6.4 5-7 finding Urine Microalbumin 10/26/2013 [facility] Ur Microalbumin 15.0 mg /dL N <30 [address] (mg/L) [place] [address] [phone] Urine Creatinine 117.31 mg/dL N Urine Microalbumin/Creatinine 12.7 N Less Than 31 Lipid Profile 07/07/2013 [facility] Triglycerides 195 mg/dL 40-200 (Trig/Chol/HDL) [address] [place] [address] [phone] Cholesterol 242 mg/dL High Less than 200 HDL Cholesterol 47 mg/dL 40-60 36 Cholesterol/HDL Ratio 5.2 Average High 1-4.44 LDL Cholesterol 156.0 High Less Than 100 37 Laboratory test 07/07/2013 [facility] TSH (Thyroid 2.61 0.34- 5.60 [address] Stimulating miu/[place] [address] [facility]) [phone] Free T4 1.10 ng/mL 0.61-1.24 39 Free T3 2.91 pg/mL 2.39-6.79 40 Comp Metabolic Panel 07/07/2013 [facility] Sodium 139 mmol/L 133-[address] [place] [address] [phone] Potassium 4.0 mmol/L 3.5-5.0 Chloride 107 mmol/L 101-111 Co2 Carbon Dioxide 24.0 mmol/L 22-32 Anion Gap 8.0 mmol/L 2-11 Glucose 163 mg/dL High 70-100 Blood Urea Nitrogen 16 mg/dL 6-24 Creatinine 0.70 mg/dL 0.50-1.40 BUN/Creatinine Ratio 22.9 High 8-20 Calcium 9.1 mg/dL 8.1-9.9 Total Protein 6.0 g/dL Low 6.2-8.1 Albumin 3.9 g/dL 3.2-5.2 Globulin 2.1 g/dL 2-4 Albumin/Globulin Ratio 1.9 1-3 Total Bilirubin 0.8 mg/dL 0.4-1.5 Alkaline Phosphatase 49 U/L 30-110 Alt 26 U/L 14-54 Ast 25 U/L 12-42 Egfr Non- 80.9 >60 Egfr 104.1 >60 41 Laboratory test finding 07/06/2013 [facility] Hemoglobin A1c 6.2 5-7 1 Result TnIDx:0.04 Called to [id number] at: 16:48:31 by:[id number] Read back by: [id number] Troponin-I testing on Plasma Separator Tubes (PST) has a known false positive rate of 0.20-0.40%. All positive troponins reflex immediate secondary confirmatory testing. 2 Please note: The following may produce a false positive D Dimer test: - Rheumatoid factor greater than 60 IU/ml - Plasma hemoglobin greater than 0.05 gm/dl - Bilirubin greater than 50 mg/dl - Lipids greater than 1000 mg/dl - FDP greater than 20 ug/ml 3 [facility] Severe Sepsis and Septic Shock Management Bundle Measure requires all lactic acids initially measuring >2.0 mmol/L be repeated. 4 Because ethnic data is not always readily available, this report includes an eGFR for both -Americans and non- Americans. The National Kidney Disease Education Program (NKDEP) does not endorse the use of the MDRD equation for patients that are not between the ages of 18 and 70, are , have extremes of body size, muscle mass, or nutritional status, or are non- or non-. According to the National Kidney Foundation, irrespective of diagnosis, the stage of the disease is based on the level of kidney function: Stage Description GFR(mL/min/1.73 m(2)) 1 Kidney damage with normal or decreased GFR 90 2 Kidney damage with mild decrease in GFR 60-89 3 Moderate decrease in GFR 30-59 4 Severe decrease in GFR 15-29 5 Kidney failure <15 (or dialysis) 5 Troponin-I testing on Plasma Separator Tubes (PST) has a known false positive rate of 0.20-0.40%. All positive troponins reflex immediate secondary confirmatory testing. 6 Because ethnic data is not always readily available, this report includes an eGFR for both -Americans and non- Americans. The National Kidney Disease Education Program (NKDEP) does not endorse the use of the MDRD equation for patients that are not between the ages of 18 and 70, are , have extremes of body size, muscle mass, or nutritional status, or are non- or non-. According to the National Kidney Foundation, irrespective of diagnosis, the stage of the disease is based on the level of kidney function: Stage Description GFR(mL/min/1.73 m(2)) 1 Kidney damage with normal or decreased GFR 90 2 Kidney damage with mild decrease in GFR 60-89 3 Moderate decrease in GFR 30-59 4 Severe decrease in GFR 15-29 5 Kidney failure <15 (or dialysis) 7 Desirable: <150 Borderline High: 150-199 High: 200-499 Very High: >500 8 Desirable: <200 Borderline High: 200-239 High: >239 9 Low: <40 Desirable: 40-60 High: >60 10 Desirable: <100 Near Optimal: 100-129 Borderline High: 130-159 High: 160-189 Very High: >189 11 Therapeutic target for the treatment of diabetes mellitus patients is <7% HBA1C, and in selective patients <6.0%. Please refer to [place] [employer] diabetic care guidelines for further information. 12 [id number] 13 Because ethnic data is not always readily available, this report includes an eGFR for both -Americans and non- Americans. The National Kidney Disease Education Program (NKDEP) does not endorse the use of the MDRD equation for patients that are not between the ages of 18 and 70, are , have extremes of body size, muscle mass, or nutritional status, or are non- or non-. According to the National Kidney Foundation, irrespective of diagnosis, the stage of the disease is based on the level of kidney function: Stage Description GFR(mL/min/1.73 m(2)) 1 Kidney damage with normal or decreased GFR 90 2 Kidney damage with mild decrease in GFR 60-89 3 Moderate decrease in GFR 30-59 4 Severe decrease in GFR 15-29 5 Kidney failure <15 (or dialysis) 14 [id number] 15 Therapeutic target for the treatment of diabetes Mellitus patients is <7% HBA1C, and in selective patients <6.0%.Please refer to [place] [employer] Diabetic care guidelines for further information. 16 Desirable <150 Borderline high 150-199 High 200-499 Very High >500 17 Desirable <200 Borderline high 200-239 High >239 18 Low <40 Desirable: 40-60 High: >60 19 Desirable: <100 mg/dL Near Optimal: 100-129 mg/dL Borderline High: 130-159 mg/dL High: 160-189 mg/dL Very High: >189 mg/dL 20 [id number] 21 SEE RESULT BELOW Name: MAGNO TARIQ : [address]: Jenn Nava MD Acct: [id number] Unit: [id number] AGE: 80 Location: [facility] Re03/08/16 SEX: F Status: DEP ER SPEC: [id number] PATRICK: 03/08/16-[address] [facility] [address]: Jenn Nava MD REQ: [id number] RECD: 03/09/16-124 STATUS: RES [facility] DR: Lina Adkins MD _ SOURCE: BACK [facility]: ORDERED: Culture Stain COMMENTS: [id number] Procedure Result Reported Site Wound/Misc Gram Stain Final 03/09/16- 1314 ML 2+ Neutrophils 3+ Epithelial Cells 3+ Gram Positive Cocci Wound/Misc Culture PENDING * ML - MAIN LAB ([facility]) . END OF REPORT * ML=Testing performed at Main Lab DEPARTMENT OF PATHOLOGY, [address] [place] [id number] Michael Johnson M.D. Director [facility] # [id number] 22 SEE RESULT BELOW Name: MARCIANOMAGNO Praveen : [address]: Jenn Nava MD Acct: [id number] Unit: [id number] AGE: 80 Location: [facility] Re03/08/16 SEX: F Status: DEP ER SPEC: [id number] PATRICK: 03/08/[address] [facility] [address]: Jenn Nava MD REQ: [id number] RECD: 03/09/16-1244 STATUS: [facility] DR: Lina Adkins MD _ SOURCE: BACK [facility]: ORDERED: MRSA/SA SSTI, Culture Stain COMMENTS: [id number] Verbal to [id number] by [email or web address] at 1427 on 03/09/16. Results read back accurately. Procedure Result Reported Site MRSA/S. aureus SSTI PCR Final 03/09/16- 1431 ML Organism 1 MRSA NEGATIVE Organism 2 S.AUREUS POSITIVE Wound/Misc Gram Stain Final 03/09/16- 1314 ML 2+ Neutrophils 3+ Epithelial Cells 3+ Gram Positive Cocci Wound/Misc Culture Final 03/11/16- 0733 ML Organism 1 STAPHYLOCOCCUS AUREUS Quantity 3+ 1. STAPHYLOCOCCUS AUREUS M.I.C. RX --------- ------ Penicillin R Clindamycin <=0.25 S Erythromycin 0.5 S Gentamicin <=0.5 S Linezolid 2 S Nitrofurantoin <=16 S Oxacillin <=0.25 S * Quinupristin/Dalfopristin 0.5 S Rifampin <=0.5 S CONTINUED ON NEXT PAGE * ML=Testing performed at Main Lab DEPARTMENT OF PATHOLOGY, [address] [place] [address] Michael Johnson M.D. Director MYLENE # [id number] Patient: MAGNO TARIQ [id number] (Continued) Specimen: [id number] Collected: 03/08/16 Received: 03/09/16-1243 (Continued) Procedure Result Reported Site Wound/Misc Culture Final (continued) 03/11/16- 732 1. STAPHYLOCOCCUS AUREUS (continued) M.I.C. RX --------- ------ Tetracycline <=1 S Doxycycline - Deduced S * Minocycline - Deduced S Trimethoprim/Sulfamethoxazole <=10 S Vancomycin 1 S Imipenem-Deduced S * Ampicillin/Sulbactam-Deduced S Cefazolin-Deduced S * These antibiotics are not available in the [facility] Formulary Contact the Microbiology Department for any additional antibiotic reporting. * ML - MAIN LAB ([facility]) . END OF REPORT * ML=Testing performed at Main Lab DEPARTMENT OF PATHOLOGY, [address] [place] [id number] Michael Johnson M.D. Director [facility] # [id number] 23 Wax Pattern Repairer: [id number] GRETA CANO 24 Because ethnic data is not always readily available, this report includes an eGFR for both -Americans and non- Americans. The National Kidney Disease Education Program (NKDEP) does not endorse the use of the MDRD equation for patients that are not between the ages of 18 and 70, are , have extremes of body size, muscle mass, or nutritional status, or are non- or non-. According to the National Kidney Foundation, irrespective of diagnosis, the stage of the disease is based on the level of kidney function: Stage Description GFR(mL/min/1.73 m(2)) 1 Kidney damage with normal or decreased GFR 90 2 Kidney damage with mild decrease in GFR 60-89 3 Moderate decrease in GFR 30-59 4 Severe decrease in GFR 15-29 5 Kidney failure <15 (or dialysis) 25 [id number] 28 Because ethnic data is not always readily available, this report includes an eGFR for both -Americans and non- Americans. The National Kidney Disease Education Program (NKDEP) does not endorse the use of the MDRD equation for patients that are not between the ages of 18 and 70, are , have extremes of body size, muscle mass, or nutritional status, or are non- or non-. According to the National Kidney Foundation, irrespective of diagnosis, the stage of the disease is based on the level of kidney function: Stage Description GFR(mL/min/1.73 m(2)) 1 Kidney damage with normal or decreased GFR 90 2 Kidney damage with mild decrease in GFR 60-89 3 Moderate decrease in GFR 30-59 4 Severe decrease in GFR 15-29 5 Kidney failure <15 (or dialysis) 29 Desirable <150 Borderline high 150-199 High 200-499 Very High >500 30 Desirable <200 Borderline high 200-239 High >239 31 Low <40 Desirable: 40-60 High: >60 32 Desirable <100 Near Optimal 100-129 Borderline high 130-159 High 160-189 Very High >189 33 Therapeutic target for the treatment of diabetes Mellitus patients is <7% HBA1C, and in selective patients <6.0%.Please refer to [place] [employer] Diabetic care guidelines for further information. 34 Because ethnic data is not always readily available, this report includes an eGFR for both -Americans and non- Americans. The National Kidney Disease Education Program (NKDEP) does not endorse the use of the MDRD equation for patients that are not between the ages of 18 and 70, are , have extremes of body size, muscle mass, or nutritional status, or are non- or non-. According to the National Kidney Foundation, irrespective of diagnosis, the stage of the disease is based on the level of kidney function: Stage Description GFR(mL/min/1.73 m(2)) 1 Kidney damage with normal or decreased GFR 90 2 Kidney damage with mild decrease in GFR 60-89 3 Moderate decrease in GFR 30-59 4 Severe decrease in GFR 15-29 5 Kidney failure <15 (or dialysis) 35 Microalbuminuria in a random sample is defined as: Microalbumin/Creatinine ratio of 30-299 ug/mg. 36 HDL Interpretation: Undesirable: High Risk: Less than 40 mg/dL Desirable: Low Risk: Greater than 60 mg/dL 37 LDL Interpretation: Low Risk Optimal Level: LDL Less than 100 mg/dL Near or Above Optimal: LDL 100-129 mg/dL Borderline High Risk: LDL 130-159 mg/dL High Risk: LDL 160-189 mg/dL Very High Risk: LDL Greater than 189 mg/dL 38 FASTING 12 HOUR 39 FASTING 12 HOUR 40 FASTING 12 HOUR 41 Because ethnic data is not always readily available, this report includes an eGFR for both -Americans and non- Americans. The National Kidney Disease Education Program (NKDEP) does not endorse the use of the MDRD equation for patients that are not between the ages of 18 and 70, are , have extremes of body size, muscle mass, or nutritional status, or are non- or non-. According to the National Kidney Foundation, irrespective of diagnosis, the stage of the disease is based on the level of kidney function: Stage Description GFR(mL/min/1.73 m(2)) 1 Kidney damage with normal or decreased GFR 90 2 Kidney damage with mild decrease in GFR 60-89 3 Moderate decrease in GFR 30-59 4 Severe decrease in GFR 15-29 5 Kidney failure <15 (or dialysis) Procedures Date Code Description Status 02/08/2016 42431 Haq/Facet/Foraminotomy;Ea Addl Segment; Cerv, Thora, Or Completed Lumbar 02/08/2016 44949 Hqa/Facet/Foraminotomy;Ea Addl Segment; Cerv, Thora, Or Completed Lumbar 02/08/2016 21094 Haq/Facet/Foraminotomy;Vertebral Segment; Lumbar Completed 02/08/2016 35062 Haq/Facet/Foraminotomy;Vertebral Segment; Lumbar Completed 02/02/2016 32901 EKG, Interpretation Only Completed 08/04/2006 [id number] Mammogram Completed Encounters Type Date Location Provider Dx Diagnosis Office Visit 01/08/2016 Neurosurgery Slade Enam[place]ado, M48.06 Spinal stenosis , 10:30a [facility] lumbar region R60.0 Localized edema Office Visit 11/23/2015 11:50a [facility] E11.9 Type 2 diabetes Shree Adkins M.D. mellitus without Patterson complications M54.17 Radiculopathy, lumbosacral region E03.8 Other specified hypothyroidism I10 Essential (primary) hypertension E78.2 Mixed hyperlipidemia Office Visit 05/17/2015 10:30a [facility] [place] E11.9 Type 2 diabetes Shree Adkins M.D. mellitus without Patterson complications E03.8 Other specified hypothyroidism E78.0 Pure hypercholesterolemia Z23 Encounter for immunization Office Visit 08/08/2014 10:10a [facility] 401.9 Hypertension Unspec Shree Adkins M.D. Patterson 272.2 Hyperlipidemia Mixed 250.00 Diabetes Mellitus W/O Compl Type II Or Unspec Controlled V15.88 History Of Fall Office Visit 01/26/2014 10:10a [facility] 250.00 Diabetes Mellitus Shree Adkins M.D. W/O Compl Type II Patterson Or Unspec Controlled 401.1 Hypertension Benign 272.2 Hyperlipidemia Mixed 715.96 Osteoarthrosis Unspec Genlzd Or Localized Lower Leg Office Visit 10/26/2013 2:10p [facility] 401.9 Hypertension Unspec Shree Adkins M.D. Patterson Office Visit 07/15/2013 10:30a [facility] 401.9 Hypertension Unspec Shree Laguerre Ricco Adkins Patterson 272.2 Hyperlipidemia Mixed Office Visit 07/06/2013 11:10a [facility] Internal Lina 250.00 Diabetes Mellitus Shree Adkins M.D. W/O Compl Type II Patterson Or Unspec Controlled 401.9 Hypertension Unspec 272.2 Hyperlipidemia Mixed 715.16 Osteoarthrosis Localized Prim Lower Leg 244.8 Hypothyroidism Other Spec Plan of Treatment 03/29/2016 - Slade Enamorado M.D.Z48.89 Encounter for other specified surgical aftercareFollow up:4 weeks
[2018-07-23] MEDS ORDERED: Senna TAB PO PRN (11:56)
[2018-07-23] MEDS ORDERED: Magnesium Hydroxide LIQ* 30 ML UDC PO PRN (11:56)
[2018-07-23] MEDS ORDERED: Dextrose 50% Syringe 50 ML* 25 GM/50 ML SYRINGE IV PUSH PRN (12:01)
[2018-07-23] MEDS ORDERED: oxyCODONE/Acetamin 5/325 MG* TAB PO PRN (12:03)
[2018-07-23] MEDS ORDERED: Insulin LISPRO* 1 UNITS UNIT SUBCUT ONE (14:10)
[2018-07-23] MEDS: Carbidopa/Levodop 25/100 MG TAB(*) PO SCH ×2 (14:13→20:21)
[2018-07-23] MEDS: Acetaminophen TAB* 325 MG PO PRN (14:28)
[2018-07-23] MEDS: Insulin LISPRO* 1 UNITS UNIT SUBCUT SCH (17:31)
[2018-07-23] MEDS: Docusate CAP* 100 MG PO SCH (20:21)
[2018-07-23] MEDS: Enoxaparin(*) 40 MG/0.4 ML SYR SUBCUT SCH (20:22)
[2018-07-23] MEDS: Metoprolol Tartrate TAB* 50 mg PO SCH (20:22)
--- NOTE | 2018-07-23 20:43 | HP ---
ADMISSION HISTORY AND PHYSICAL: DATE OF ADMISSION: 07/23/18 REASON FOR ADMISSION: Parkinson disease. HISTORY OF PRESENT ILLNESS: Monica Tariq is an 82-year-old right-handed female. She is a retired development chemist. For the past 2 years, she noted a progressive decline in her mobility. She also had a resting tremor. She had back surgery about 2 years ago and had some leg weakness after that, but was ambulating with a cane. For the last year, her mobility has declined where she now needs a walker. She feels very unsteady and is very cautious when she walks. She also occasionally gets lightheaded when she stands. She has noted her handwriting has deteriorated as well. Her son brought her to the emergency room because of progressively worsening weakness on 07/19/18. She was admitted to the hospital. Initially, she was found to have an elevated troponin, but no chest pain. It was thought that her weakness might be due to deconditioning. However , she had a neurology consult done with Dr. Claudio on 07/21/18. She also had a cervical spine MRI ordered. Dr. Claudio after examining her felt that she was having cogwheeling rigidity and felt that she had Parkinson disease. He recommended a trial for Sinemet. It was felt that she had physical therapy and occupational therapy needs. She is now being admitted for inpatient rehab so that she might return to independent living. PAST MEDICAL HISTORY: Significant for the aforementioned back surgery as well as diabetes. She also has history of hypertension and hypothyroidism. MEDICATIONS: Current medications include: 1. Norvasc. 2. Sinemet. 3. Lovenox for DVT prophylaxis. 4. She is on lispro insulin. 5. Synthroid. 6. Lisinopril. 7. Lopressor. 8. Percocet. 9. Sliding scale insulin coverage. ALLERGIES: Listed to HYDROCHLOROTHIAZIDE, LIPITOR, and STATINS. SOCIAL HISTORY: She lives by herself, but has a son living next door. She is a nonsmoker and nondrinker. REVIEW OF SYSTEMS: The patient reports no current shortness of breath or chest pain. PHYSICAL EXAMINATION VITAL SIGNS: The patient's temperature is 97.5, blood pressure is 138/60, pulse is 59, respirations 20. HEENT: Her extraocular movements were intact. Tongue is midline. NECK: Supple. LUNGS: Sounded clear to auscultation bilaterally. HEART: Sounds were regular. S1 and S2 were audible. ABDOMEN: Soft and nontender. EXTREMITIES: Did reveal mild cogwheeling in her upper extremities bilaterally. Peripheral pulses were intact. NEUROLOGIC: She was awake. She did have a resting tremor. Muscle strength appeared to be about 4+/5 throughout. FUNCTIONAL EXAM: She transfers with min to mod assist. ASSESSMENT: Parkinson disease. PLAN: Our plan is to integrate her into a comprehensive and therapeutic rehab program. We will have the following goals: 1. Physical Therapy will work with the patient. They are going to work on functional transfer training, ambulation training with a walker. 2. Occupational Therapy will see the patient, work on her activities of daily living including toileting and toilet transfers. 3. Lovenox for DVT prophylaxis. 4. Adequate analgesia for her back pain including Percocet and Ultram as needed. 5. Her bowels will be regulated. 6. Sinemet 3 times a day for her Parkinson disease. 7. Continue her medications for high blood pressure including lisinopril, Lopressor, and Norvasc. 8. For her diabetes, we will continue her sliding scale insulin coverage as well as her glipizide. We will restart her metformin in the next day or 2. 9. Continue Synthroid for hypothyroidism. 10. Family training as appropriate. 11. Home with appropriate services. 12. Advance directives: The patient requests no aggressive treatment in case of medical emergency. I have written a DNR order in the chart. ESTIMATED LENGTH OF STAY: 2 weeks. [id number]/[facility] #: [id number] MIR
[2018-07-24] MEDS: Levothyroxine TAB* 50 MCG TAB PO SCH (05:35)
[2018-07-24 07:16] LABS: ABS Basophils 0.1 10^3/ul (0-0.2); ABS Eosinophils 0.1 10^3/ul (0-0.6); ABS Lymphocytes 1.4 10^3/ul (1.0-4.8); ABS Monocytes 0.4 10^3/ul (0-0.8); ABS Neutrophils 3.1 10^3/ul (1.5-7.7); ABS Nucleated RBC 0 10^3/ul; Eosinophil % 2.6 %; Hematocrit 45 % (35-47); Hemoglobin 14.9 g/dl (12.0-16.0); Lymphocyte % 27.4 %; Mean Corpuscular HGB Conc 34 g/dl (31-36); Mean Corpuscular Hemoglobin 31 pg (27-31); Mean Corpuscular Volume 93 fL (80-97); Mean Platelet Volume 8.3 fL (7.4-10.4); Nucleated Red Blood Cells % 0.1; Platelet Count 178 10^3/ul (150-450); Red Cell Distribution Width 14 % (10.5-15); White Blood Count 5.1 10^3/ul (3.5-10.8)
[2018-07-24 07:30] LABS: Albumin 3.4 g/dL (3.2-5.2); Albumin/Globulin Ratio 1.5 (1-3); BUN/Creatinine Ratio 30.4 (8-20); EGFR Non-African American 81.3 (>60); Globulin 2.3 g/dL (2-4); Total Bilirubin 0.7 mg/dL (0.2-1.0); Total Protein 5.7 g/dL (6.4-8.9)
[2018-07-24] MEDS: Insulin LISPRO* 1 UNITS UNIT SUBCUT SCH ×3 (09:08→17:06)
[2018-07-24] MEDS: amLODIPine TAB* 5 MG PO SCH (09:10)
[2018-07-24] MEDS: Metoprolol Tartrate TAB* 50 mg PO SCH ×2 (09:10→20:17)
[2018-07-24] MEDS: Lisinopril TAB* 10 MG PO SCH (09:10)
[2018-07-24] MEDS: Carbidopa/Levodop 25/100 MG TAB(*) PO SCH ×3 (09:10→20:17)
[2018-07-24] MEDS: Docusate CAP* 100 MG PO SCH ×2 (09:12→19:51)
--- NOTE | 2018-07-24 12:38 | PMRUTEAM ---
PMRU: Team Meeting Current Status: Nursing: Current Status Skin Deviations [Bilateral Other Heel] Skin Deviations [Right Knee] Other Skin Deviations [Right Breast] Other Skin Deviation Description [ redness Bilateral Heel] Skin Deviation Description [ fangus Right Knee] Skin Deviation Description [ redness from breast to flank, powder in place Right Breast] Physical Therapy: Current Status Bed Mobility Assistance Mod Assist,2 or More Person Assist Transfer Mobility Assistance Mod Assist Transfer/Bed Mobility Rolling Walker Recommended Devices Ambulation Assistance Min Assist Ambulation Assistive Devices Rolling Walker Stairs Assistance Not Tested Manual Wheelchair Control/ Bilateral LE's Technique Wheelchair Propulsion Ability Moderate Assistance Wheelchair Distance (ft) 90 Objective Comments patient uses BLE to propell W/C with assist of designer writer. patient is quite fatigued. Occupational Therapy: Current Status Eating Supervision Min Assist UB Dressing, LB Dressing Total Assist, Bathing Mod Assist, Toileting Mod Assist, Toilet Transfers Mod Assist Goals: Physical Therapy: Initial Goals Bed Mobility Assistance Independent Transfer Mobility Assistance Independent Transfer/Bed Mobility Rolling Walker Recommended Devices Ambulation Independent Ambulation Recommended Devices Rolling Walker Ambulation Distance 150 Stairs Assistance Independent Stair Recommended Devices One Rail Number of Stairs 6 Physical Therapy: Updated Goals Transfer/Bed Mobility Rolling Walker Recommended Devices Occupational Therapy: Initial Goals Goals to be Completed in (Days 2-3 weeks ) Upper Body Bathing Routine Modified Independent with Lower Body Bathing Routine Modified Independent with Upper Body Dressing Routine Modified Independent with Lower Body Dressing Routine Modified Independent with Toilet Hygeine and Clothing Modified Independent with Management Routine Toilet Transfer Routine Modified Independent with Step-In Shower Transfer Modified Independent with Routine Functional Transfers for ADL Modified Independent with Grooming Routine Independent Feeding Routine Independent Nutrition: Goals Intervention Goals 1. Maintain improved oral intake to support maintenance of lean body mass. 2. Maintain adequate glycemic control per inpatient parameters, with consideration for advanced age and debility. 3. Staff to provide appropriate support with opening of containers/set up. Care Plan: Care Plan ADL's - Improve/Maintain Start: 07/23/18 16:51 Freq: DAILY Status: Active Target: Protocol: Activity Type Activity Date Activity User E-Sign Co-Sign Detail Recorded Client Recorded Date Recorded By Document 07/23/18 16:51 [id number] [id number] 07/23/18 16:52 [id number] 07/23/18 16:51 PMRU Outcome: ADL's/ADL Transfers Orders/Interventions Occupational Therapy Evaluation & Treatment Communication Tool in Patient Room Device Yes Address Deficits Secondary To: Parkinson's dz Patient to receive OT 5x/wk for 60-120 Therex min/day Self Care Management Group Therapy Neuromuscular ReEducation UE/LE ADL's with Assist Yes: Bhumika ADL Transfers with Assist Yes: Bhumika Toileting: Transfers,Clothing Management Yes: Bhumika ,Hygeine w/Assist Light Kitchen/Laundry w/Assist Yes: light meal prep Bhumika Progression Toward Outcome/Goals Progressing Outcome/Goals Met Pt is an 82 y/o female s/p new diagnosis of Parkinson's Disease presenting with UE tremor, decreased strength, limited endurance, balance deficits, coordination deficits and generalized deconditioning affecting bathing, toileting, dressing and functional mobility/ transfers. Pt will benefit from skilled OT intervention to maximize independence and safety. Plan for full ADL treatment session next date for further assessment. DVT Prophylaxis- Improve/Maintain Start: 07/23/18 10:54 Freq: QSHIFT Status: Active Target: Protocol: Activity Type Activity Date Activity User E-Sign Co-Sign Detail Recorded Client Recorded Date Recorded By Document 07/23/18 20:00 [id number] [id number] 07/23/18 20:58 [id number] 07/23/18 20:00 PMRU Outcome: DVT Prophylaxis Outcome/Goals Remains Free of DVT Complies with DVT Prophylaxis /Treatment Demonstrates Knowledge of DVT Prevention/ Treatment TEDS Stockings on Every AM, Off at HS Progression Toward Outcome/Goals Progressing Education-Improve/Maintain Start: 07/23/18 10:54 Freq: QSHIFT Status: Active Target: Protocol: Activity Type Activity Date Activity User E-Sign Co-Sign Detail Recorded Client Recorded Date Recorded By Document 07/23/18 20:00 [id number] 07/23/18 20:58 [id number] 07/23/18 20:00 PMRU Outcome: Education Outcome/Goals Encourage Questions Progression Toward Outcome/Goals Progressing Medication Administration Start: 07/23/18 10:54 Freq: QSHIFT Status: Active Target: Protocol: Activity Type Activity Date Activity User E-Sign Co-Sign Detail Recorded Client Recorded Date Recorded By Document 07/23/18 20:00 [id number] 07/23/18 20:58 [id number] 07/23/18 20:00 PMRU Outcome: Medication Administration Assess Patient Knowledge/Teach Med Yes Education for all Meds Outcome/Goals Patient Independent with Medication Administration at Home Demonstrates Understanding Progression Towards Outcome/Goals Progressing Is Patient Going Home on Lovenox? No Metabolic Status- Improve/Maintain Start: 07/23/18 10:54 Freq: QSHIFT Status: Active Target: Protocol: Activity Type Activity Date Activity User E-Sign Co-Sign Detail Recorded Client Recorded Date Recorded By Document 07/23/18 20:00 [id number] [email or web address] 07/23/18 20:58 [id number] 07/23/18 20:00 PMRU Outcome: Metabolic Status Have Fingersticks Been Ordered Yes Fingerstick Order Frequency AC & HS Outcome/Goals Maintain/ Improve Metabolic Status Demonstrate Knowledge of Prevention/ Treatment of Metabolic Imbalances Progression Toward Outcome/Goals Progressing Neurological- Improve/Maintain Start: 07/23/18 10:54 Freq: QSHIFT Status: Active Target: Protocol: Activity Type Activity Date Activity User E-Sign Co-Sign Detail Recorded Client Recorded Date Recorded By Document 07/23/18 20:00 [id number] 07/23/18 20:58 [id number] 07/23/18 20:00 PMRU Outcome: Neurological Weakness/Aphasia Weakness Outcome/Goals Improve Neurological Status Prevent Avoidable Neurological Decline Maintain/ Improve Strength/ROM Progression Toward Outcome/Goals Progressing Safety- Improve/Maintain Start: 07/23/18 10:54 Freq: QSHIFT Status: Active Target: Protocol: Activity Type Activity Date Activity User E-Sign Co-Sign Detail Recorded Client Recorded Date Recorded By Document 07/23/18 20:00 [id number] 07/23/18 20:58 [id number] 07/23/18 20:00 PMRU Outcome: Safety Outcome/Goals Remain Free of Injury or Harm Cooperates with Safety Measures for Least Restrictive Environment Prevent Falls/ Injury Progression Toward Outcome/Goals Progressing Medicine Note: Length of Stay: 2 1/2 weeks Anticipated Discharge Destination: Tentative Discharge Date: 08/11/17 Discharged to: Home
[2018-07-24] MEDS: Enoxaparin(*) 40 MG/0.4 ML SYR SUBCUT SCH (20:18)
--- NOTE | 2018-07-24 20:22 | PN ---
Progress Note Date of Service: 07/24/18 Note: MAGNO CALLEJAS was visited. Therapy notes read and reviewed. She was discussed in interdisciplinary plan of care rounds. She has been immobile for about a year and has a lot of mobility and balance problems. Slight queasiness from Sinemet. Current Medications: Active Medications Generic Name Dose Route Start Last Admin Trade Name Freq PRN Reason Stop Dose Admin Acetaminophen 650 mg 07/23/18 11:56 07/23/18 14:28 Tylenol Tab* PO 650 mg Q6H PRN Administration FEVER/PAIN Amlodipine Besylate 10 mg 07/24/18 09:00 07/24/18 09:10 Norvasc Tab* PO 10 mg DAILY LUIS Administration Carbidopa/Levodopa 1 tab 07/23/18 14:00 07/24/18 14:32 Sinemet 25/100 Tab(*) PO 1 tab TID LUIS Administration Dextrose 12.5 gm 07/23/18 12:01 D50w Syringe 50 Ml* IV PUSH .FOR FS < 60 - SS PRN FS < 60 Docusate Sodium 100 mg 07/23/18 21:00 07/24/18 19:51 Colace Cap* PO Not Given BID LUIS Enoxaparin Sodium 40 mg 07/23/18 21:00 07/23/18 20:22 Lovenox(*) SUBCUT 40 mg Q24H LUIS Administration Insulin Human Lispro 0 - 10 units 07/23/18 16:30 07/24/18 17:06 Humalog* SUBCUT 1 unit AC LUIS Administration Protocol Levothyroxine Sodium 50 mcg 07/24/18 06:00 07/24/18 05:35 Synthroid Tab* PO 50 mcg DAILY@0600 LUIS Administration Lisinopril 40 mg 07/24/18 09:00 07/24/18 09:10 Prinivil Tab* PO 40 mg DAILY LUIS Administration Magnesium Hydroxide 30 ml 07/23/18 11:56 Milk Of Magnesia Liq* PO Q6H PRN CONSTIPATION Metoprolol Tartrate 50 mg 07/23/18 21:00 07/24/18 09:10 Lopressor Tab* PO 50 mg Q12HR LUIS Administration Oxycodone/Acetaminophen 1 tab 07/23/18 12:03 Percocet 5/325 Tab* PO Q6H PRN PAIN - MODERATE TO SEVERE Senna 2 tab 07/23/18 11:56 Senokot Tab* PO BEDTIME PRN CONSTIPATION Vital Signs: Vital Signs Temp Pulse Resp BP Pulse Ox 97.3 F 65 16 139/74 99 07/24/18 16:53 07/24/18 16:53 07/24/18 16:53 07/24/18 16:53 07/24/18 16:53 Lab Results: Laboratory Results - last 24 hr 07/23/18 07/24/18 07/24/18 20:25 06:53 06:53 WBC 5.1 RBC 4.80 Hgb 14.9 Hct 45 MCV 93 MCH 31 MCHC 34 RDW 14 Plt Count 178 MPV 8.3 Neut % (Auto) 60.8 Lymph % (Auto) 27.4 [place] % (Auto) 8.2 Eos % (Auto) 2.6 Baso % (Auto) 1.0 Absolute Neuts (auto) 3.1 Absolute Lymphs (auto) 1.4 Absolute Monos (auto) 0.4 Absolute Eos (auto) 0.1 Absolute Basos (auto) 0.1 Absolute Nucleated RBC 0 Nucleated RBC % 0.1 Sodium 140 Potassium 4.0 Chloride 108 Carbon Dioxide 27 Anion Gap 5 BUN 21 Creatinine 0.69 Est GFR ( Amer) 98.3 Est GFR (Non-Af Amer) 81.3 BUN/Creatinine Ratio 30.4 H Glucose 136 H POC Glucose (mg/dL) 170 H Calcium 9.0 Total Bilirubin 0.70 AST 22 ALT 8 Alkaline Phosphatase 48 Total Protein 5.7 L Albumin 3.4 Globulin 2.3 Albumin/Globulin Ratio 1.5 07/24/18 07/24/18 07/24/18 07:35 12:01 16:49 WBC RBC Hgb Hct MCV MCH MCHC RDW Plt Count MPV Neut % (Auto) Lymph % (Auto) [place] % (Auto) Eos % (Auto) Baso % (Auto) Absolute Neuts (auto) Absolute Lymphs (auto) Absolute Monos (auto) Absolute Eos (auto) Absolute Basos (auto) Absolute Nucleated RBC Nucleated RBC % Sodium Potassium Chloride Carbon Dioxide Anion Gap BUN Creatinine Est GFR ( Amer) Est GFR (Non-Af Amer) BUN/Creatinine Ratio Glucose POC Glucose (mg/dL) 147 H 123 H 147 H Calcium Total Bilirubin AST ALT Alkaline Phosphatase Total Protein Albumin Globulin Albumin/Globulin Ratio Exam: GENERAL: Alert oriented SKIN: Fungal rash under breast folds LUNGS: Clear bilaterally HEART: reg rhythm ABDOMEN: Soft, +BS EXTREMITIES: Increased tone in UEs and LEs NEUROLOGIC: resting tremor in arms. Strength 4+/5 Assessment/Plan: 1. Parkinson's Disease: Sinemet TID. PT/OT 2. Diabetes: SSI. Restart Glipizide. Then restart Metformin 3. HTN: Lisinopril/Lopressor/Norvasc 4. Hypothyroidism: Synthroid 5. DVT Prophylaxis: Lovenox 6. Advanced Directives: DNR 07/24/18 20:22 07/24/18 20:28 07/24/18 20:29
[2018-07-24] MEDS: Nystatin TOP POWDER* 15 GM BTL TOPICAL SCH (21:55)
[2018-07-25] MEDS: Levothyroxine TAB* 50 MCG TAB PO SCH (05:45)
[2018-07-25] MEDS: Metoprolol Tartrate TAB* 50 mg PO SCH ×2 (08:02→21:12)
[2018-07-25] MEDS: glipiZIDE TAB* 5 MG PO SCH ×2 (08:02→17:26)
[2018-07-25] MEDS: Carbidopa/Levodop 25/100 MG TAB(*) PO SCH ×3 (08:02→21:12)
[2018-07-25] MEDS: amLODIPine TAB* 5 MG PO SCH (08:02)
[2018-07-25] MEDS: Lisinopril TAB* 10 MG PO SCH (08:02)
[2018-07-25] MEDS: Insulin LISPRO* 1 UNITS UNIT SUBCUT SCH ×3 (08:03→17:17)
[2018-07-25] MEDS: Docusate CAP* 100 MG PO SCH ×2 (08:03→21:11)
[2018-07-25] MEDS: Nystatin TOP POWDER* 15 GM BTL TOPICAL SCH ×2 (12:43→21:15)
--- NOTE | 2018-07-25 14:46 | PN ---
Progress Note Date of Service: 07/25/18 Note: MAGNO CALLEJAS was visited. Therapy notes read and reviewed. She has no complaints other than stiffness and fatigue. She thinks therapy is making a difference. Current Medications: Active Medications Generic Name Dose Route Start Last Admin Trade Name Freq PRN Reason Stop Dose Admin Acetaminophen 650 mg 07/23/18 11:56 07/23/18 14:28 Tylenol Tab* PO 650 mg Q6H PRN Administration FEVER/PAIN Amlodipine Besylate 10 mg 07/24/18 09:00 07/25/18 08:02 Norvasc Tab* PO 10 mg DAILY LUIS Administration Carbidopa/Levodopa 1 tab 07/23/18 14:00 07/25/18 13:29 Sinemet 25/100 Tab(*) PO 1 tab TID LUIS Administration Dextrose 12.5 gm 07/23/18 12:01 D50w Syringe 50 Ml* IV PUSH .FOR FS < 60 - SS PRN FS < 60 Docusate Sodium 100 mg 07/23/18 21:00 07/25/18 08:03 Colace Cap* PO Not Given BID LUIS Enoxaparin Sodium 40 mg 07/23/18 21:00 07/24/18 20:18 Lovenox(*) SUBCUT 40 mg Q24H LUIS Administration Glipizide 2.5 mg 07/25/18 08:00 07/25/18 08:02 Glucotrol Tab* PO 2.5 mg 0800,1700 LUIS Administration Insulin Human Lispro 0 - 10 units 07/23/18 16:30 07/25/18 11:59 Humalog* SUBCUT Not Given AC [facility] Protocol Levothyroxine Sodium 50 mcg 07/24/18 06:00 07/25/18 05:45 Synthroid Tab* PO 50 mcg DAILY@0600 LUIS Administration Lisinopril 40 mg 07/24/18 09:00 07/25/18 08:02 Prinivil Tab* PO 40 mg DAILY LUIS Administration Magnesium Hydroxide 30 ml 07/23/18 11:56 Milk Of Magnesia Liq* PO Q6H PRN CONSTIPATION Metoprolol Tartrate 50 mg 07/23/18 21:00 07/25/18 08:02 Lopressor Tab* PO 50 mg Q12HR LUIS Administration Nystatin 1 applic 07/24/18 21:00 07/25/18 12:43 Nystatin Top Powder* TOPICAL 1 applic BID LUIS Administration Oxycodone/Acetaminophen 1 tab 07/23/18 12:03 Percocet 5/325 Tab* PO Q6H PRN PAIN - MODERATE TO SEVERE Senna 2 tab 07/23/18 11:56 Senokot Tab* PO BEDTIME PRN CONSTIPATION Vital Signs: Vital Signs Temp Pulse Resp BP Pulse Ox 98.4 F 57 16 137/65 97 07/25/18 06:07 07/25/18 06:07 07/25/18 06:07 07/25/18 06:07 07/25/18 08:00 Lab Results: Laboratory Results - last 24 hr 07/24/18 07/24/18 07/25/18 16:49 20:18 07:34 POC Glucose (mg/dL) 147 H 216 H 135 H 07/25/18 11:31 POC Glucose (mg/dL) 82 Exam: GENERAL: Alert oriented SKIN: Fungal rash under breast folds LUNGS: Clear bilaterally HEART: reg rhythm ABDOMEN: Soft, +BS EXTREMITIES: Increased tone in UEs and LEs NEUROLOGIC: resting tremor in arms. Strength 4+/5 Assessment/Plan: 1. Parkinson's Disease: Sinemet TID. PT/OT 2. Diabetes: SSI. Restarted Glipizide. Then restart Metformin 3. HTN: Lisinopril/Lopressor/Norvasc 4. Hypothyroidism: Synthroid 5. DVT Prophylaxis: Lovenox 6. Advanced Directives: DNR 07/25/18 14:47
[2018-07-25] MEDS: Enoxaparin(*) 40 MG/0.4 ML SYR SUBCUT SCH (21:13)
[2018-07-26] MEDS: Levothyroxine TAB* 50 MCG TAB PO SCH (05:34)
[2018-07-26] MEDS: Lisinopril TAB* 10 MG PO SCH (09:12)
[2018-07-26] MEDS: amLODIPine TAB* 5 MG PO SCH (09:13)
[2018-07-26] MEDS: Carbidopa/Levodop 25/100 MG TAB(*) PO SCH ×3 (09:13→20:48)
[2018-07-26] MEDS: Metoprolol Tartrate TAB* 50 mg PO SCH ×2 (09:13→20:48)
[2018-07-26] MEDS: Docusate CAP* 100 MG PO SCH ×2 (09:14→20:48)
[2018-07-26] MEDS: Insulin LISPRO* 1 UNITS UNIT SUBCUT SCH ×3 (09:14→17:17)
[2018-07-26] MEDS: glipiZIDE TAB* 5 MG PO SCH ×2 (09:14→17:21)
[2018-07-26] MEDS: Nystatin TOP POWDER* 15 GM BTL TOPICAL SCH ×2 (13:51→20:48)
--- NOTE | 2018-07-26 16:52 | PN ---
Progress Note Date of Service: 07/26/18 Note: MAGNO CALLEJAS was visited. Nursing notes read and reviewed. She has no complaints today other than stiffness. Current Medications: Active Medications Generic Name Dose Route Start Last Admin Trade Name Freq PRN Reason Stop Dose Admin Acetaminophen 650 mg 07/23/18 11:56 07/23/18 14:28 Tylenol Tab* PO 650 mg Q6H PRN Administration FEVER/PAIN Amlodipine Besylate 10 mg 07/24/18 09:00 07/26/18 09:13 Norvasc Tab* PO 10 mg DAILY LUIS Administration Carbidopa/Levodopa 1 tab 07/23/18 14:00 07/26/18 13:47 Sinemet 25/100 Tab(*) PO 1 tab TID LUIS Administration Dextrose 12.5 gm 07/23/18 12:01 D50w Syringe 50 Ml* IV PUSH .FOR FS < 60 - SS PRN FS < 60 Docusate Sodium 100 mg 07/23/18 21:00 07/26/18 09:14 Colace Cap* PO Not Given BID LUIS Enoxaparin Sodium 40 mg 07/23/18 21:00 07/25/18 21:13 Lovenox(*) SUBCUT 40 mg Q24H LUIS Administration Glipizide 2.5 mg 07/25/18 08:00 07/26/18 09:14 Glucotrol Tab* PO 2.5 mg 0800,1700 LUIS Administration Insulin Human Lispro 0 - 10 units 07/23/18 16:30 07/26/18 12:03 Humalog* SUBCUT 1 unit AC LUIS Administration Protocol Levothyroxine Sodium 50 mcg 07/24/18 06:00 07/26/18 05:34 Synthroid Tab* PO 50 mcg DAILY@0600 LUIS Administration Lisinopril 40 mg 07/24/18 09:00 07/26/18 09:12 Prinivil Tab* PO 40 mg DAILY LUIS Administration Magnesium Hydroxide 30 ml 07/23/18 11:56 Milk Of Magnesia Liq* PO Q6H PRN CONSTIPATION Metoprolol Tartrate 50 mg 07/23/18 21:00 07/26/18 09:13 Lopressor Tab* PO 50 mg Q12HR LUIS Administration Nystatin 1 applic 07/24/18 21:00 07/26/18 13:51 Nystatin Top Powder* TOPICAL 1 applic BID LUIS Administration Oxycodone/Acetaminophen 1 tab 07/23/18 12:03 Percocet 5/325 Tab* PO Q6H PRN PAIN - MODERATE TO SEVERE Senna 2 tab 07/23/18 11:56 Senokot Tab* PO BEDTIME PRN CONSTIPATION Vital Signs: Vital Signs Temp Pulse Resp BP Pulse Ox 97.9 F 60 16 140/56 98 07/26/18 15:33 07/26/18 15:33 07/26/18 16:28 07/26/18 15:33 07/26/18 16:28 Lab Results: Laboratory Results - last 24 hr 07/25/18 07/26/18 07/26/18 21:07 07:33 11:16 POC Glucose (mg/dL) 82 131 H 148 H Exam: GENERAL: Alert oriented SKIN: Fungal rash under breast folds LUNGS: Clear bilaterally HEART: reg rhythm ABDOMEN: Soft, +BS EXTREMITIES: Increased tone in UEs and LEs NEUROLOGIC: resting tremor in arms. Strength 4+/5 Assessment/Plan: 1. Parkinson's Disease: Sinemet TID. PT/OT 2. Diabetes: SSI. Restarted Glipizide. Will restart Metformin 3. HTN: Lisinopril/Lopressor/Norvasc 4. Hypothyroidism: Synthroid 5. DVT Prophylaxis: Lovenox 6. Advanced Directives: DNR 07/26/18 16:52
[2018-07-26] MEDS: Enoxaparin(*) 40 MG/0.4 ML SYR SUBCUT SCH (20:48)
[2018-07-27] MEDS: Levothyroxine TAB* 50 MCG TAB PO SCH (05:05)
[2018-07-27] MEDS ORDERED: metFORMIN* 500 MG TAB PO SCH (08:00)
[2018-07-27] MEDS: glipiZIDE TAB* 5 MG PO SCH ×2 (09:58→17:14)
[2018-07-27] MEDS: amLODIPine TAB* 5 MG PO SCH (09:59)
[2018-07-27] MEDS: Carbidopa/Levodop 25/100 MG TAB(*) PO SCH ×3 (10:01→20:27)
[2018-07-27] MEDS: Docusate CAP* 100 MG PO SCH ×2 (10:02→20:27)
[2018-07-27] MEDS: Metoprolol Tartrate TAB* 50 mg PO SCH ×2 (10:03→20:27)
[2018-07-27] MEDS: Lisinopril TAB* 10 MG PO SCH (10:03)
[2018-07-27] MEDS: Nystatin TOP POWDER* 15 GM BTL TOPICAL SCH ×2 (10:03→20:27)
[2018-07-27] MEDS: Insulin LISPRO* 1 UNITS UNIT SUBCUT SCH ×3 (10:03→16:55)
--- NOTE | 2018-07-27 12:46 | PMRUTEAM ---
PMRU: Team Meeting Current Status: Nursing: Current Status Skin Deviations [Left Breast] Rash Skin Deviations [Bilateral Other Heel] Skin Deviations [Right Knee] Other Skin Deviations [Right Breast] Rash Skin Deviation Description [ red skin Left Breast] Skin Deviation Description [ dry skin redness Bilateral Heel] Skin Deviation Description [ fangus Right Knee] Skin Deviation Description [ slit noted, Nystatin applied Right Breast] Physical Therapy: Current Status Bed Mobility Assistance Min Assist Transfer Mobility Assistance Contact Guard Assist Transfer/Bed Mobility Rolling Walker Recommended Devices Ambulation Assistance Contact Guard Assist Ambulation Assistive Devices Rolling Walker Number of Feet Patient 75 Ambulated Stairs Assistance Not Tested Manual Wheelchair Control/ Bilateral LE's Technique Wheelchair Propulsion Ability Moderate Assistance Wheelchair Distance (ft) 90 Objective Comments patient uses BLE to propell W/C with assist of insurance underwriter sales. patient is quite fatigued. Occupational Therapy: Current Status Upper Body Dressing Mod Assist Lower Body Dressing Max Asst Bathing Max Asst Toileting Max Asst Toilet Transfer Min Assist Eating Supervision Rec Therapy: Current Status Summary of Assessment and Pt. was open to conversation - appropriate and Clinical Impression cooperative throughout. Pt. presented as dysphoric with a blunted affect. Pt. was interested in continued leisure visits. Treatment Goals Pt. will engage in leisure activities while on the unit. Treatment Plan Provide RT services and encourage involvement. Social Work: Current Status Discharge Plan return home with home care svs and family support Potential for Family Training pt's family are involved and supportive Anticipated Discharge Home Destination Discharge With home care svs and family support Goals: Physical Therapy: Initial Goals Bed Mobility Assistance Independent Transfer Mobility Assistance Independent Transfer/Bed Mobility Rolling Walker Recommended Devices Ambulation Independent Ambulation Recommended Devices Rolling Walker Ambulation Distance 150 Stairs Assistance Independent Stair Recommended Devices One Rail Number of Stairs 6 Physical Therapy: Updated Goals Transfer/Bed Mobility Rolling Walker Recommended Devices Occupational Therapy: Initial Goals Goals to be Completed in (Days 2-3 weeks ) Upper Body Bathing Routine Modified Independent with Lower Body Bathing Routine Modified Independent with Upper Body Dressing Routine Modified Independent with Lower Body Dressing Routine Modified Independent with Toilet Hygeine and Clothing Modified Independent with Management Routine Toilet Transfer Routine Modified Independent with Step-In Shower Transfer Modified Independent with Routine Functional Transfers for ADL Modified Independent with Grooming Routine Independent Feeding Routine Independent Nutrition: Goals Intervention Goals 1. Maintain improved oral intake to support maintenance of lean body mass. 2. Maintain adequate glycemic control per inpatient parameters, with consideration for advanced age and debility. 3. Staff to provide appropriate support with opening of containers/set up. Social Work: Goals Discharge Plan return home with home care svs and family support Potential for Family Training pt's family are involved and supportive Anticipated Discharge Home Destination Discharge With home care svs and family support Care Plan: Care Plan ADL's - Improve/Maintain Start: 07/23/18 16:51 Freq: DAILY Status: Active Target: Protocol: Activity Type Activity Date Activity User E-Sign Co-Sign Detail Recorded Client Recorded Date Recorded By Document 07/24/18 15:54 [id number] [id number] 07/24/18 15:54 [id number] 07/24/18 15:54 PMRU Outcome: ADL's/ADL Transfers Orders/Interventions Occupational Therapy Evaluation & Treatment Communication Tool in Patient Room Device Yes Address Deficits Secondary To: Parkinson's dz Patient to receive OT 5x/wk for 60-120 Therex min/day Self Care Management Group Therapy Neuromuscular ReEducation UE/LE ADL's with Assist Yes: Bhumika ADL Transfers with Assist Yes: Bhumika Toileting: Transfers,Clothing Management Yes: Bhumika ,Hygeine w/Assist Light Kitchen/Laundry w/Assist Yes: light meal prep Bhumika Progression Toward Outcome/Goals Progressing Outcome/Goals Met Pt requires increased time for all tasks, requires encouragement to complete tasks as independently as possible, fatigues easily . DVT Prophylaxis- Improve/Maintain Start: 07/23/18 10:54 Freq: QSHIFT Status: Active Target: Protocol: Activity Type Activity Date Activity User E-Sign Co-Sign Detail Recorded Client Recorded Date Recorded By Document 07/27/18 02:48 [id number] [id number] 07/27/18 02:48 [id number] 07/27/18 02:48 PMRU Outcome: DVT Prophylaxis Outcome/Goals Remains Free of DVT Complies with DVT Prophylaxis /Treatment TEDS Stockings on Every AM, Off at HS Progression Toward Outcome/Goals Progressing Discharge Planning - Improve/Maintain Start: 07/23/18 10:54 Freq: DAILY Status: Active Target: Protocol: Activity Type Activity Date Activity User E-Sign Co-Sign Detail Recorded Client Recorded Date Recorded By Document 07/27/18 02:48 [id number] [id number] 07/27/18 02:48 [id number] 07/27/18 02:48 PMRU Outcome: Discharge Planning Outcome/Goals Demonstrates Understanding of Discharge Plan Progression Toward Outcome/Goals Progressing Education-Improve/Maintain Start: 07/23/18 10:54 Freq: QSHIFT Status: Active Target: Protocol: Activity Type Activity Date Activity User E-Sign Co-Sign Detail Recorded Client Recorded Date Recorded By Document 07/27/18 02:48 [id number] [email or web address] 07/27/18 02:48 [id number] 07/27/18 02:48 PMRU Outcome: Education Outcome/Goals Demonstrate/ Verbalize Understanding of Written Discharge Instructions Demonstrates Skills Encourage Questions Progression Toward Outcome/Goals Progressing Medication Administration Start: 07/23/18 10:54 Freq: QSHIFT Status: Active Target: Protocol: Activity Type Activity Date Activity User E-Sign Co-Sign Detail Recorded Client Recorded Date Recorded By Document 07/27/18 02:48 [id number] [email or web address] 07/27/18 02:48 [id number] 07/27/18 02:48 PMRU Outcome: Medication Administration Assess Patient Knowledge/Teach Med Yes Education for all Meds Outcome/Goals Patient Independent with Medication Administration at Home Demonstrates Understanding Progression Towards Outcome/Goals Progressing Is Patient Going Home on Lovenox? No Metabolic Status- Improve/Maintain Start: 07/23/18 10:54 Freq: QSHIFT Status: Active Target: Protocol: Activity Type Activity Date Activity User E-Sign Co-Sign Detail Recorded Client Recorded Date Recorded By Document 07/27/18 02:48 [id number] [email or web address] 07/27/18 02:48 [id number] 07/27/18 02:48 PMRU Outcome: Metabolic Status Have Fingersticks Been Ordered Yes Fingerstick Order Frequency AC & HS Outcome/Goals Maintain/ Improve Metabolic Status Demonstrate Knowledge of Prevention/ Treatment of Metabolic Imbalances Progression Toward Outcome/Goals Progressing Mobility- Improve/Maintain Start: 07/25/18 15:19 Freq: DAILY Status: Active Target: Protocol: Activity Type Activity Date Activity User E-Sign Co-Sign Detail Recorded Client Recorded Date Recorded By Document 07/25/18 15:20 [id number] 07/25/18 15:22 [id number] 07/25/18 15:20 PMRU Outcome: Mobility Physical Therapy Evaluation and Yes Treatment Activity OOB with Assistance Yes Device Yes: FWW Assistance Yes: Min-CGA Patient to be seen 5x/wk for 60-120 min/ Therex day for: Mobility Training Gait Training Balance Outcome/Goals Maintain/ Achieve Baseline Mobility Status Improve Mobility Status Demonstrates Proper Use of Assistive Devices Free from Complications of Immobility Progression Toward Outcome/Goals Progressing Bed Mobility Yes: Ind Transfers Yes: Mod I with walker Gait x ft Yes: Mod I with walker x150ft Up/Down Stairs Yes: Ind x6 steps, 1 rail With HEP Yes Neurological- Improve/Maintain Start: 07/23/18 10:54 Freq: QSHIFT Status: Active Target: Protocol: Activity Type Activity Date Activity User E-Sign Co-Sign Detail Recorded Client Recorded Date Recorded By Document 07/27/18 02:48 [id number] 07/27/18 02:48 [id number] 07/27/18 02:48 PMRU Outcome: Neurological Weakness/Aphasia Weakness Right Side Left Side Outcome/Goals Maintain/ Achieve Baseline Neurological Status Improve Neurological Status Maintain/ Improve Strength/ROM Progression Toward Outcome/Goals Progressing Safety- Improve/Maintain Start: 07/23/18 10:54 Freq: QSHIFT Status: Active Target: Protocol: Activity Type Activity Date Activity User E-Sign Co-Sign Detail Recorded Client Recorded Date Recorded By Document 07/27/18 02:48 [id number] [email or web address] 07/27/18 02:48 [id number] 07/27/18 02:48 PMRU Outcome: Safety Outcome/Goals Remain Free of Injury or Harm Cooperates with Safety Measures for Least Restrictive Environment Progression Toward Outcome/Goals Progressing Outcome/Goals Met Comment armed Medicine Note: Length of Stay: 2 weeks Anticipated Discharge Destination: Home Tentative Discharge Date: 08/11/18 Discharged to: Home
--- NOTE | 2018-07-27 14:09 | PN ---
Progress Note Date of Service: 07/27/18 Note: MAGNO CALLEJAS was visited. Therapy notes read and reviewed. She was discussed in interdisciplinary team rounds. She is doing better than she was but still has to work on a few things. DOes not want Metformin Current Medications: Active Medications Generic Name Dose Route Start Last Admin Trade Name Freq PRN Reason Stop Dose Admin Acetaminophen 650 mg 07/23/18 11:56 07/23/18 14:28 Tylenol Tab* PO 650 mg Q6H PRN Administration FEVER/PAIN Amlodipine Besylate 10 mg 07/24/18 09:00 07/27/18 09:59 Norvasc Tab* PO 10 mg DAILY LUIS Administration Carbidopa/Levodopa 1 tab 07/23/18 14:00 07/27/18 10:01 Sinemet 25/100 Tab(*) PO 1 tab TID LUIS Administration Dextrose 12.5 gm 07/23/18 12:01 D50w Syringe 50 Ml* IV PUSH .FOR FS < 60 - SS PRN FS < 60 Docusate Sodium 100 mg 07/23/18 21:00 07/27/18 10:02 Colace Cap* PO Not Given BID LUIS Enoxaparin Sodium 40 mg 07/23/18 21:00 07/26/18 20:48 Lovenox(*) SUBCUT 40 mg Q24H LUIS Administration Glipizide 2.5 mg 07/25/18 08:00 07/27/18 09:58 Glucotrol Tab* PO 2.5 mg 0800,1700 LUIS Administration Insulin Human Lispro 0 - 10 units 07/23/18 16:30 07/27/18 13:48 Humalog* SUBCUT Not Given AC [facility] Protocol Levothyroxine Sodium 50 mcg 07/24/18 06:00 07/27/18 05:05 Synthroid Tab* PO 50 mcg DAILY@0600 LUIS Administration Lisinopril 40 mg 07/24/18 09:00 07/27/18 10:03 Prinivil Tab* PO 40 mg DAILY LUIS Administration Magnesium Hydroxide 30 ml 07/23/18 11:56 Milk Of Magnesia Liq* PO Q6H PRN CONSTIPATION Metoprolol Tartrate 50 mg 07/23/18 21:00 07/27/18 10:03 Lopressor Tab* PO 50 mg Q12HR LUIS Administration Nystatin 1 applic 07/24/18 21:00 07/27/18 10:03 Nystatin Top Powder* TOPICAL 1 applic BID LUIS Administration Oxycodone/Acetaminophen 1 tab 07/23/18 12:03 Percocet 5/325 Tab* PO Q6H PRN PAIN - MODERATE TO SEVERE Senna 2 tab 07/23/18 11:56 Senokot Tab* PO BEDTIME PRN CONSTIPATION Vital Signs: Vital Signs Temp Pulse Resp BP Pulse Ox 98.0 F 57 16 128/66 100 07/27/18 05:02 07/27/18 05:02 07/27/18 05:02 07/27/18 05:02 07/27/18 05:02 Lab Results: Laboratory Results - last 24 hr 07/26/18 07/26/18 07/27/18 16:29 20:08 07:51 POC Glucose (mg/dL) 83 175 H 154 H 07/27/18 12:17 POC Glucose (mg/dL) 73 Exam: GENERAL: Alert oriented SKIN: Fungal rash under breast folds LUNGS: Clear bilaterally HEART: reg rhythm ABDOMEN: Soft, +BS EXTREMITIES: Increased tone in UEs and LEs NEUROLOGIC: resting tremor in arms. Strength 4+/5 Assessment/Plan: 1. Parkinson's Disease: Sinemet TID. PT/OT 2. Diabetes: SSI. Restarted Glipizide. Will d/c Metformin 3. HTN: Lisinopril/Lopressor/Norvasc 4. Hypothyroidism: Synthroid 5. DVT Prophylaxis: Lovenox 6. Advanced Directives: DNR 07/27/18 14:09
[2018-07-27] MEDS: Enoxaparin(*) 40 MG/0.4 ML SYR SUBCUT SCH (20:30)
[2018-07-28] MEDS: Levothyroxine TAB* 50 MCG TAB PO SCH (06:13)
[2018-07-28] MEDS: Insulin LISPRO* 1 UNITS UNIT SUBCUT SCH ×3 (09:31→18:09)
[2018-07-28] MEDS: amLODIPine TAB* 5 MG PO SCH (09:32)
[2018-07-28] MEDS: Carbidopa/Levodop 25/100 MG TAB(*) PO SCH ×3 (09:32→21:48)
[2018-07-28] MEDS: Lisinopril TAB* 10 MG PO SCH (09:33)
[2018-07-28] MEDS: Metoprolol Tartrate TAB* 50 mg PO SCH ×2 (09:33→21:48)
[2018-07-28] MEDS: Nystatin TOP POWDER* 15 GM BTL TOPICAL SCH ×2 (09:34→21:58)
[2018-07-28] MEDS: Docusate CAP* 100 MG PO SCH ×2 (09:34→21:58)
[2018-07-28] MEDS: glipiZIDE TAB* 5 MG PO SCH ×2 (09:34→16:40)
--- NOTE | 2018-07-28 13:06 | PN ---
Progress Note Date of Service: 07/28/18 Note: MAGNO CALLEJAS was visited. Therapy notes read and reviewed. She feels lightheaded when she tries to stand up. Will check Orthostatics Current Medications: Active Medications Generic Name Dose Route Start Last Admin Trade Name Freq PRN Reason Stop Dose Admin Acetaminophen 650 mg 07/23/18 11:56 07/23/18 14:28 Tylenol Tab* PO 650 mg Q6H PRN Administration FEVER/PAIN Amlodipine Besylate 10 mg 07/24/18 09:00 07/28/18 09:32 Norvasc Tab* PO 10 mg DAILY LUIS Administration Carbidopa/Levodopa 1 tab 07/23/18 14:00 07/28/18 09:32 Sinemet 25/100 Tab(*) PO 1 tab TID LUIS Administration Dextrose 12.5 gm 07/23/18 12:01 D50w Syringe 50 Ml* IV PUSH .FOR FS < 60 - SS PRN FS < 60 Docusate Sodium 100 mg 07/23/18 21:00 07/28/18 09:34 Colace Cap* PO Not Given BID LUIS Enoxaparin Sodium 40 mg 07/23/18 21:00 07/27/18 20:30 Lovenox(*) SUBCUT 40 mg Q24H LUIS Administration Glipizide 2.5 mg 07/25/18 08:00 07/28/18 09:34 Glucotrol Tab* PO Not Given 0800,1700 [facility] Insulin Human Lispro 0 - 10 units 07/23/18 16:30 07/28/18 12:26 Humalog* SUBCUT Not Given [facility] Protocol Levothyroxine Sodium 50 mcg 07/24/18 06:00 07/28/18 06:13 Synthroid Tab* PO 50 mcg DAILY@0600 LUIS Administration Lisinopril 40 mg 07/24/18 09:00 07/28/18 09:33 Prinivil Tab* PO 40 mg DAILY LUIS Administration Magnesium Hydroxide 30 ml 07/23/18 11:56 Milk Of Magnesia Liq* PO Q6H PRN CONSTIPATION Metoprolol Tartrate 50 mg 07/23/18 21:00 07/28/18 09:33 Lopressor Tab* PO 50 mg Q12HR LUIS Administration Nystatin 1 applic 07/24/18 21:00 07/28/18 09:34 Nystatin Top Powder* TOPICAL 1 applic BID LUIS Administration Oxycodone/Acetaminophen 1 tab 07/23/18 12:03 Percocet 5/325 Tab* PO Q6H PRN PAIN - MODERATE TO SEVERE Senna 2 tab 07/23/18 11:56 Senokot Tab* PO BEDTIME PRN CONSTIPATION Vital Signs: Vital Signs Temp Pulse Resp BP Pulse Ox 98.3 F 60 18 121/56 95 07/28/18 06:04 07/28/18 11:20 07/28/18 06:04 07/28/18 11:14 07/28/18 11:14 Lab Results: Laboratory Results - last 24 hr 07/27/18 07/27/18 07/27/18 12:17 16:49 20:35 POC Glucose (mg/dL) 73 130 H 178 H 07/28/18 07/28/18 07:42 11:34 POC Glucose (mg/dL) 140 H 118 H Exam: GENERAL: Alert oriented SKIN: Fungal rash under breast folds LUNGS: Clear bilaterally HEART: reg rhythm ABDOMEN: Soft, +BS EXTREMITIES: Increased tone in UEs and LEs NEUROLOGIC: resting tremor in arms. Strength 4+/5 Assessment/Plan: 1. Parkinson's Disease: Sinemet TID. PT/OT. Check orthostatics 2. Diabetes: SSI. Restarted Glipizide. 3. HTN: Lisinopril/Lopressor/Norvasc. May need to cut back. 4. Hypothyroidism: Synthroid 5. DVT Prophylaxis: Lovenox 6. Advanced Directives: DNR 07/28/18 13:07
[2018-07-28 17:30] LABS: Urine Appearance Clear; Urine Bilirubin Negative (Negative); Urine Blood Negative (Negative); Urine Color Yellow; Urine Glucose Negative (Negative); Urine Ketones Trace (Negative); Urine Nitrite Negative (Negative); Urine Protein Negative (Negative); Urine Specific Gravity 1.017 (1.010-1.030); Urine Urobilinogen Negative (Negative)
[2018-07-28] MEDS: Enoxaparin(*) 40 MG/0.4 ML SYR SUBCUT SCH (21:49)
[2018-07-29] MEDS: Levothyroxine TAB* 50 MCG TAB PO SCH (05:05)
[2018-07-29 05:09] LABS: ABS Basophils 0.1 10^3/ul (0-0.2); ABS Eosinophils 0.2 10^3/ul (0-0.6); ABS Lymphocytes 2.4 10^3/ul (1.0-4.8); ABS Monocytes 0.5 10^3/ul (0-0.8); ABS Neutrophils 4.4 10^3/ul (1.5-7.7); ABS Nucleated RBC 0 10^3/ul; Eosinophil % 2.1 %; Hematocrit 45 % (35-47); Hemoglobin 15.5 g/dl (12.0-16.0); Lymphocyte % 31.6 %; Mean Corpuscular HGB Conc 34 g/dl (31-36); Mean Corpuscular Hemoglobin 31 pg (27-31); Mean Corpuscular Volume 92 fL (80-97); Mean Platelet Volume 8.3 fL (7.4-10.4); Nucleated Red Blood Cells % 0.1; Platelet Count 190 10^3/ul (150-450); Red Blood Count 4.93 10^6/ul (4.00-5.40); Red Cell Distribution Width 14 % (10.5-15); White Blood Count 7.5 10^3/ul (3.5-10.8)
[2018-07-29] MEDS: Insulin LISPRO* 1 UNITS UNIT SUBCUT SCH ×3 (08:59→17:24)
[2018-07-29] MEDS: glipiZIDE TAB* 5 MG PO SCH ×2 (09:01→17:34)
[2018-07-29] MEDS: amLODIPine TAB* 5 MG PO SCH (09:01)
[2018-07-29] MEDS: Lisinopril TAB* 10 MG PO SCH (09:02)
[2018-07-29] MEDS: Carbidopa/Levodop 25/100 MG TAB(*) PO SCH ×3 (09:02→19:53)
[2018-07-29] MEDS: Docusate CAP* 100 MG PO SCH ×2 (09:02→19:48)
[2018-07-29] MEDS: Nystatin TOP POWDER* 15 GM BTL TOPICAL SCH ×2 (09:03→19:47)
[2018-07-29] MEDS: Metoprolol Tartrate TAB* 50 mg PO SCH ×2 (09:03→19:53)
--- NOTE | 2018-07-29 19:36 | PN ---
Progress Note Date of Service: 07/29/18 Note: MAGNO CALLEJAS was visited. Therapy notes read and reviewed. Again felt washed out today and too weak to do therapy. re-inforced that she has to try to do therapy. U/A neg/ WBC normal. Orthostatics not all that different. Current Medications: Active Medications Generic Name Dose Route Start Last Admin Trade Name Freq PRN Reason Stop Dose Admin Acetaminophen 650 mg 07/23/18 11:56 07/23/18 14:28 Tylenol Tab* PO 650 mg Q6H PRN Administration FEVER/PAIN Amlodipine Besylate 10 mg 07/24/18 09:00 07/29/18 09:01 Norvasc Tab* PO 10 mg DAILY LUIS Administration Carbidopa/Levodopa 1 tab 07/23/18 14:00 07/29/18 14:04 Sinemet 25/100 Tab(*) PO 1 tab TID LUIS Administration Dextrose 12.5 gm 07/23/18 12:01 D50w Syringe 50 Ml* IV PUSH .FOR FS < 60 - SS PRN FS < 60 Docusate Sodium 100 mg 07/23/18 21:00 07/29/18 09:02 Colace Cap* PO Not Given BID LUIS Enoxaparin Sodium 40 mg 07/23/18 21:00 07/28/18 21:49 Lovenox(*) SUBCUT 40 mg Q24H LUIS Administration Glipizide 2.5 mg 07/25/18 08:00 07/29/18 17:34 Glucotrol Tab* PO Not Given 0800,1700 [facility] Insulin Human Lispro 0 - 10 units 07/23/18 16:30 07/29/18 17:24 Humalog* SUBCUT 1 unit AC LUIS Administration Protocol Levothyroxine Sodium 50 mcg 07/24/18 06:00 07/29/18 05:05 Synthroid Tab* PO 50 mcg DAILY@0600 LUIS Administration Lisinopril 40 mg 07/24/18 09:00 07/29/18 09:02 Prinivil Tab* PO 40 mg DAILY LUIS Administration Magnesium Hydroxide 30 ml 07/23/18 11:56 Milk Of Magnesia Liq* PO Q6H PRN CONSTIPATION Metoprolol Tartrate 50 mg 07/23/18 21:00 07/29/18 09:03 Lopressor Tab* PO 50 mg Q12HR LUIS Administration Nystatin 1 applic 07/24/18 21:00 07/29/18 09:03 Nystatin Top Powder* TOPICAL 1 applic BID LUIS Administration Oxycodone/Acetaminophen 1 tab 07/23/18 12:03 Percocet 5/325 Tab* PO Q6H PRN PAIN - MODERATE TO SEVERE Senna 2 tab 07/23/18 11:56 Senokot Tab* PO BEDTIME PRN CONSTIPATION Vital Signs: Vital Signs Temp Pulse Resp BP Pulse Ox 97.2 F 62 20 142/67 97 07/29/18 15:32 07/29/18 15:32 07/29/18 15:32 07/29/18 15:32 07/29/18 18:45 Lab Results: Laboratory Results - last 24 hr 07/28/18 07/29/18 07/29/18 21:45 04:55 07:44 WBC 7.5 RBC 4.93 Hgb 15.5 Hct 45 MCV 92 MCH 31 MCHC 34 RDW 14 Plt Count 190 MPV 8.3 Neut % (Auto) 58.7 Lymph % (Auto) 31.6 [place] % (Auto) 6.2 Eos % (Auto) 2.1 Baso % (Auto) 1.4 Absolute Neuts (auto) 4.4 Absolute Lymphs (auto) 2.4 Absolute Monos (auto) 0.5 Absolute Eos (auto) 0.2 Absolute Basos (auto) 0.1 Absolute Nucleated RBC 0 Nucleated RBC % 0.1 POC Glucose (mg/dL) 92 138 H 07/29/18 07/29/18 12:01 16:45 WBC RBC Hgb Hct MCV MCH MCHC RDW Plt Count MPV Neut % (Auto) Lymph % (Auto) [place] % (Auto) Eos % (Auto) Baso % (Auto) Absolute Neuts (auto) Absolute Lymphs (auto) Absolute Monos (auto) Absolute Eos (auto) Absolute Basos (auto) Absolute Nucleated RBC Nucleated RBC % POC Glucose (mg/dL) 98 147 H Exam: GENERAL: Alert oriented SKIN: Fungal rash under breast folds LUNGS: Clear bilaterally HEART: reg rhythm ABDOMEN: Soft, +BS EXTREMITIES: Increased tone in UEs and LEs NEUROLOGIC: resting tremor in arms. Strength 4+/5 Assessment/Plan: 1. Parkinson's Disease: Sinemet TID. PT/OT. 2. Diabetes: SSI. She does not want to take Glipizide. 3. HTN: Lisinopril/Lopressor/Norvasc. May need to cut back. 4. Hypothyroidism: Synthroid 5. DVT Prophylaxis: Lovenox 6. Advanced Directives: DNR 07/29/18 19:37
[2018-07-29] MEDS: Acetaminophen TAB* 325 MG PO PRN (19:38)
[2018-07-29] MEDS: Enoxaparin(*) 40 MG/0.4 ML SYR SUBCUT SCH (19:53)
[2018-07-30] MEDS: Levothyroxine TAB* 50 MCG TAB PO SCH (05:27)
[2018-07-30] MEDS: Insulin LISPRO* 1 UNITS UNIT SUBCUT SCH ×3 (09:13→17:02)
[2018-07-30] MEDS: glipiZIDE TAB* 5 MG PO SCH ×2 (09:16→17:16)
[2018-07-30] MEDS: amLODIPine TAB* 5 MG PO SCH (09:18)
[2018-07-30] MEDS: Metoprolol Tartrate TAB* 50 mg PO SCH ×2 (09:19→20:46)
[2018-07-30] MEDS: Docusate CAP* 100 MG PO SCH ×2 (09:19→20:48)
[2018-07-30] MEDS: Lisinopril TAB* 10 MG PO SCH (09:19)
[2018-07-30] MEDS: Carbidopa/Levodop 25/100 MG TAB(*) PO SCH ×3 (09:19→20:46)
[2018-07-30] MEDS: Nystatin TOP POWDER* 15 GM BTL TOPICAL SCH ×2 (09:34→20:59)
--- NOTE | 2018-07-30 19:08 | PN ---
Progress Note Date of Service: 07/30/18 Note: MAGNO CALLEJAS was visited. Therapy notes read and reviewed. She had a lot less nausea today. Probable GI virus Current Medications: Active Medications Generic Name Dose Route Start Last Admin Trade Name Freq PRN Reason Stop Dose Admin Acetaminophen 650 mg 07/23/18 11:56 07/29/18 19:38 Tylenol Tab* PO 650 mg Q6H PRN Administration FEVER/PAIN Amlodipine Besylate 10 mg 07/24/18 09:00 07/30/18 09:18 Norvasc Tab* PO 10 mg DAILY LUIS Administration Carbidopa/Levodopa 1 tab 07/23/18 14:00 07/30/18 13:28 Sinemet 25/100 Tab(*) PO 1 tab TID LUIS Administration Dextrose 12.5 gm 07/23/18 12:01 D50w Syringe 50 Ml* IV PUSH .FOR FS < 60 - SS PRN FS < 60 Docusate Sodium 100 mg 07/23/18 21:00 07/30/18 09:19 Colace Cap* PO Not Given BID LUIS Enoxaparin Sodium 40 mg 07/23/18 21:00 07/29/18 19:53 Lovenox(*) SUBCUT 40 mg Q24H LUIS Administration Glipizide 2.5 mg 07/25/18 08:00 07/30/18 17:16 Glucotrol Tab* PO Not Given 0800,1700 [facility] Insulin Human Lispro 0 - 10 units 07/23/18 16:30 07/30/18 17:02 Humalog* SUBCUT Not Given [facility] Protocol Levothyroxine Sodium 50 mcg 07/24/18 06:00 07/30/18 05:27 Synthroid Tab* PO 50 mcg DAILY@0600 LUIS Administration Lisinopril 40 mg 07/24/18 09:00 07/30/18 09:19 Prinivil Tab* PO 40 mg DAILY LUIS Administration Magnesium Hydroxide 30 ml 07/23/18 11:56 Milk Of Magnesia Liq* PO Q6H PRN CONSTIPATION Metoprolol Tartrate 50 mg 07/23/18 21:00 07/30/18 09:19 Lopressor Tab* PO 50 mg Q12HR LUIS Administration Nystatin 1 applic 07/24/18 21:00 07/30/18 09:34 Nystatin Top Powder* TOPICAL 1 applic BID LUIS Administration Oxycodone/Acetaminophen 1 tab 07/23/18 12:03 Percocet 5/325 Tab* PO Q6H PRN PAIN - MODERATE TO SEVERE Senna 2 tab 07/23/18 11:56 Senokot Tab* PO BEDTIME PRN CONSTIPATION Vital Signs: Vital Signs Temp Pulse Resp BP Pulse Ox 97.6 F 62 20 126/60 99 07/30/18 16:03 07/30/18 16:03 07/30/18 16:03 07/30/18 16:03 07/30/18 19:02 Lab Results: Laboratory Results - last 24 hr 07/29/18 07/30/18 07/30/18 20:09 07:25 12:23 POC Glucose (mg/dL) 141 H 101 H 137 H Exam: GENERAL: Alert oriented SKIN: Fungal rash under breast folds LUNGS: Clear bilaterally HEART: reg rhythm ABDOMEN: Soft, +BS EXTREMITIES: Increased tone in UEs and LEs NEUROLOGIC: resting tremor in arms. Strength 4+/5 Assessment/Plan: 1. Parkinson's Disease: Sinemet TID. PT/OT. 2. Diabetes: SSI. She does not want to take Glipizide. 3. HTN: Lisinopril/Lopressor/Norvasc. 4. Hypothyroidism: Synthroid 5. DVT Prophylaxis: Lovenox 6. Advanced Directives: DNR 07/30/18 19:08
[2018-07-30] MEDS: Acetaminophen TAB* 325 MG PO PRN (20:45)
[2018-07-30] MEDS: Enoxaparin(*) 40 MG/0.4 ML SYR SUBCUT SCH (20:47)
[2018-07-31] MEDS: Levothyroxine TAB* 50 MCG TAB PO SCH (05:29)
[2018-07-31 05:54] LABS: ABS Basophils 0.1 10^3/ul (0-0.2); ABS Eosinophils 0.1 10^3/ul (0-0.6); ABS Lymphocytes 2.1 10^3/ul (1.0-4.8); ABS Monocytes 0.5 10^3/ul (0-0.8); ABS Neutrophils 3.5 10^3/ul (1.5-7.7); ABS Nucleated RBC 0 10^3/ul; Eosinophil % 1.6 %; Hematocrit 44 % (35-47); Hemoglobin 15.1 g/dl (12.0-16.0); Lymphocyte % 33.1 %; Mean Corpuscular HGB Conc 34 g/dl (31-36); Mean Corpuscular Hemoglobin 31 pg (27-31); Mean Corpuscular Volume 92 fL (80-97); Mean Platelet Volume 8.1 fL (7.4-10.4); Nucleated Red Blood Cells % 0; Platelet Count 213 10^3/ul (150-450); Red Blood Count 4.79 10^6/ul (4.00-5.40); Red Cell Distribution Width 14 % (10.5-15); White Blood Count 6.3 10^3/ul (3.5-10.8)
[2018-07-31 06:25] LABS: Albumin 3.6 g/dL (3.2-5.2); Albumin/Globulin Ratio 1.6 (1-3); BUN/Creatinine Ratio 29.6 (8-20); Calcium 9.1 mg/dL (8.6-10.3); EGFR Non-African American 78.6 (>60); Globulin 2.2 g/dL (2-4); Total Bilirubin 0.6 mg/dL (0.2-1.0); Total Protein 5.8 g/dL (6.4-8.9)
[2018-07-31] MEDS: Insulin LISPRO* 1 UNITS UNIT SUBCUT SCH ×3 (08:15→21:00)
[2018-07-31] MEDS: glipiZIDE TAB* 5 MG PO SCH ×2 (08:15→16:20)
[2018-07-31] MEDS: Nystatin TOP POWDER* 15 GM BTL TOPICAL SCH ×2 (08:35→21:13)
[2018-07-31] MEDS: Docusate CAP* 100 MG PO SCH ×3 (09:00→21:14)
[2018-07-31] MEDS: Lisinopril TAB* 10 MG PO SCH (09:00)
[2018-07-31] MEDS: amLODIPine TAB* 5 MG PO SCH (09:00)
[2018-07-31] MEDS: Carbidopa/Levodop 25/100 MG TAB(*) PO SCH ×3 (09:00→21:06)
[2018-07-31] MEDS: Metoprolol Tartrate TAB* 50 mg PO SCH ×2 (09:01→21:06)
[2018-07-31] MEDS: Acetaminophen TAB* 325 MG PO PRN (14:29)
--- NOTE | 2018-07-31 19:48 | PN ---
Progress Note Date of Service: 07/31/18 Note: MAGNO CALLEJAS was visited. Therapy notes read and reviewed. She does not want to take Glipizide. Her BS are ok off it, a little high. No more queasiness. Current Medications: Active Medications Generic Name Dose Route Start Last Admin Trade Name Freq PRN Reason Stop Dose Admin Acetaminophen 650 mg 07/23/18 11:56 07/31/18 14:29 Tylenol Tab* PO 650 mg Q6H PRN Administration FEVER/PAIN Amlodipine Besylate 10 mg 07/24/18 09:00 07/31/18 09:00 Norvasc Tab* PO 10 mg DAILY LUIS Administration Carbidopa/Levodopa 1 tab 07/23/18 14:00 07/31/18 14:26 Sinemet 25/100 Tab(*) PO 1 tab TID LUIS Administration Dextrose 12.5 gm 07/23/18 12:01 D50w Syringe 50 Ml* IV PUSH .FOR FS < 60 - SS PRN FS < 60 Docusate Sodium 100 mg 07/23/18 21:00 07/31/18 09:02 Colace Cap* PO Not Given BID LUIS Enoxaparin Sodium 40 mg 07/23/18 21:00 07/30/18 20:47 Lovenox(*) SUBCUT 40 mg Q24H LUIS Administration Glipizide 2.5 mg 07/25/18 08:00 07/31/18 16:20 Glucotrol Tab* PO Not Given 0800,1700 [facility] Insulin Human Lispro 0 - 10 units 07/23/18 16:30 07/31/18 12:05 Humalog* SUBCUT Not Given [facility] Protocol Levothyroxine Sodium 50 mcg 07/24/18 06:00 07/31/18 05:29 Synthroid Tab* PO 50 mcg DAILY@0600 LUIS Administration Lisinopril 40 mg 07/24/18 09:00 07/31/18 09:00 Prinivil Tab* PO 40 mg DAILY LUIS Administration Magnesium Hydroxide 30 ml 07/23/18 11:56 Milk Of Magnesia Liq* PO Q6H PRN CONSTIPATION Metoprolol Tartrate 50 mg 07/23/18 21:00 07/31/18 09:01 Lopressor Tab* PO 50 mg Q12HR LUIS Administration Nystatin 1 applic 07/24/18 21:00 07/31/18 08:35 Nystatin Top Powder* TOPICAL 1 applic BID LUIS Administration Oxycodone/Acetaminophen 1 tab 07/23/18 12:03 Percocet 5/325 Tab* PO Q6H PRN PAIN - MODERATE TO SEVERE Senna 2 tab 07/23/18 11:56 Senokot Tab* PO BEDTIME PRN CONSTIPATION Vital Signs: Vital Signs Temp Pulse Resp BP Pulse Ox 97.6 F 63 18 132/57 97 07/31/18 16:11 07/31/18 16:11 07/31/18 16:11 07/31/18 16:11 07/31/18 16:11 Lab Results: Laboratory Results - last 24 hr 07/30/18 07/30/18 07/31/18 16:52 20:30 05:32 WBC 6.3 RBC 4.79 Hgb 15.1 Hct 44 MCV 92 MCH 31 MCHC 34 RDW 14 Plt Count 213 MPV 8.1 Neut % (Auto) 55.2 Lymph % (Auto) 33.1 Ceiba % (Auto) 8.3 Eos % (Auto) 1.6 Baso % (Auto) 1.8 Absolute Neuts (auto) 3.5 Absolute Lymphs (auto) 2.1 Absolute Monos (auto) 0.5 Absolute Eos (auto) 0.1 Absolute Basos (auto) 0.1 Absolute Nucleated RBC 0 Nucleated RBC % 0 Sodium Potassium Chloride Carbon Dioxide Anion Gap BUN Creatinine Est GFR ( Amer) Est GFR (Non-Af Amer) BUN/Creatinine Ratio Glucose POC Glucose (mg/dL) 98 162 H Calcium Total Bilirubin AST ALT Alkaline Phosphatase Total Protein Albumin Globulin Albumin/Globulin Ratio 07/31/18 07/31/18 07/31/18 05:32 07:26 11:53 WBC RBC Hgb Hct MCV MCH MCHC RDW Plt Count MPV Neut % (Auto) Lymph % (Auto) Ceiba % (Auto) Eos % (Auto) Baso % (Auto) Absolute Neuts (auto) Absolute Lymphs (auto) Absolute Monos (auto) Absolute Eos (auto) Absolute Basos (auto) Absolute Nucleated RBC Nucleated RBC % Sodium 138 Potassium 4.0 Chloride 106 Carbon Dioxide 24 Anion Gap 8 BUN 21 Creatinine 0.71 Est GFR ( Amer) 95.1 Est GFR (Non-Af Amer) 78.6 BUN/Creatinine Ratio 29.6 H Glucose 131 H POC Glucose (mg/dL) 127 H 103 H Calcium 9.1 Total Bilirubin 0.60 AST 17 ALT 7 Alkaline Phosphatase 57 Total Protein 5.8 L Albumin 3.6 Globulin 2.2 Albumin/Globulin Ratio 1.6 07/31/18 16:51 WBC RBC Hgb Hct MCV MCH MCHC RDW Plt Count MPV Neut % (Auto) Lymph % (Auto) Ceiba % (Auto) Eos % (Auto) Baso % (Auto) Absolute Neuts (auto) Absolute Lymphs (auto) Absolute Monos (auto) Absolute Eos (auto) Absolute Basos (auto) Absolute Nucleated RBC Nucleated RBC % Sodium Potassium Chloride Carbon Dioxide Anion Gap BUN Creatinine Est GFR ( Amer) Est GFR (Non-Af Amer) BUN/Creatinine Ratio Glucose POC Glucose (mg/dL) 129 H Calcium Total Bilirubin AST ALT Alkaline Phosphatase Total Protein Albumin Globulin Albumin/Globulin Ratio Exam: GENERAL: Alert oriented SKIN: Fungal rash under breast folds improving LUNGS: Clear bilaterally HEART: reg rhythm ABDOMEN: Soft, +BS EXTREMITIES: Increased tone in UEs and LEs NEUROLOGIC: resting tremor in arms. Strength 4+/5 Assessment/Plan: 1. Parkinson's Disease: Sinemet TID. PT/OT. 2. Diabetes: SSI. She does not want to take Glipizide. 3. HTN: Lisinopril/Lopressor/Norvasc. 4. Hypothyroidism: Synthroid 5. DVT Prophylaxis: Lovenox 6. Advanced Directives: DNR 07/31/18 19:49
[2018-07-31] MEDS: Enoxaparin(*) 40 MG/0.4 ML SYR SUBCUT SCH (21:09)
[2018-08-01] MEDS: Levothyroxine TAB* 50 MCG TAB PO SCH (05:45)
[2018-08-01] MEDS: Insulin LISPRO* 1 UNITS UNIT SUBCUT SCH ×3 (08:51→17:43)
[2018-08-01] MEDS: amLODIPine TAB* 5 MG PO SCH (08:54)
[2018-08-01] MEDS: Metoprolol Tartrate TAB* 50 mg PO SCH ×2 (08:54→20:12)
[2018-08-01] MEDS: Lisinopril TAB* 10 MG PO SCH (08:54)
[2018-08-01] MEDS: Docusate CAP* 100 MG PO SCH ×2 (08:54→20:18)
[2018-08-01] MEDS: Carbidopa/Levodop 25/100 MG TAB(*) PO SCH ×3 (08:54→20:12)
[2018-08-01] MEDS: Nystatin TOP POWDER* 15 GM BTL TOPICAL SCH ×2 (11:59→20:18)
--- NOTE | 2018-08-01 16:14 | PN ---
Progress Note Date of Service: 08/01/18 Note: MAGNO CALLEJAS was visited. Therapy notes read and reviewed. She feels like she is making progress. Current Medications: Active Medications Generic Name Dose Route Start Last Admin Trade Name Freq PRN Reason Stop Dose Admin Acetaminophen 650 mg 07/23/18 11:56 07/31/18 14:29 Tylenol Tab* PO 650 mg Q6H PRN Administration FEVER/PAIN Amlodipine Besylate 10 mg 07/24/18 09:00 08/01/18 08:54 Norvasc Tab* PO 10 mg DAILY LUIS Administration Carbidopa/Levodopa 1 tab 07/23/18 14:00 08/01/18 13:50 Sinemet 25/100 Tab(*) PO 1 tab TID LUIS Administration Dextrose 12.5 gm 07/23/18 12:01 D50w Syringe 50 Ml* IV PUSH .FOR FS < 60 - SS PRN FS < 60 Docusate Sodium 100 mg 07/23/18 21:00 08/01/18 08:54 Colace Cap* PO Not Given BID LUIS Enoxaparin Sodium 40 mg 07/23/18 21:00 07/31/18 21:09 Lovenox(*) SUBCUT 40 mg Q24H LUIS Administration Insulin Human Lispro 0 - 10 units 07/23/18 16:30 08/01/18 11:59 Humalog* SUBCUT Not Given [facility] Protocol Levothyroxine Sodium 50 mcg 07/24/18 06:00 08/01/18 05:45 Synthroid Tab* PO 50 mcg DAILY@0600 LUIS Administration Lisinopril 40 mg 07/24/18 09:00 08/01/18 08:54 Prinivil Tab* PO 40 mg DAILY LUIS Administration Magnesium Hydroxide 30 ml 07/23/18 11:56 Milk Of Magnesia Liq* PO Q6H PRN CONSTIPATION Metoprolol Tartrate 50 mg 07/23/18 21:00 08/01/18 08:54 Lopressor Tab* PO 50 mg Q12HR LUIS Administration Nystatin 1 applic 07/24/18 21:00 08/01/18 11:59 Nystatin Top Powder* TOPICAL Not Given BID LUIS Oxycodone/Acetaminophen 1 tab 07/23/18 12:03 Percocet 5/325 Tab* PO Q6H PRN PAIN - MODERATE TO SEVERE Senna 2 tab 07/23/18 11:56 Senokot Tab* PO BEDTIME PRN CONSTIPATION Vital Signs: Vital Signs Temp Pulse Resp BP Pulse Ox 97.7 F 55 18 138/67 100 08/01/18 05:50 08/01/18 05:50 08/01/18 05:50 08/01/18 05:50 08/01/18 05:50 Lab Results: Laboratory Results - last 24 hr 07/31/18 07/31/18 08/01/18 16:51 21:13 07:55 POC Glucose (mg/dL) 129 H 143 H 129 H 08/01/18 11:38 POC Glucose (mg/dL) 114 H Exam: GENERAL: Alert oriented SKIN: Fungal rash under breast folds improving LUNGS: Clear bilaterally HEART: reg rhythm ABDOMEN: Soft, +BS EXTREMITIES: Increased tone in UEs and LEs NEUROLOGIC: resting tremor in arms. Strength 4+/5 Assessment/Plan: 1. Parkinson's Disease: Sinemet TID. PT/OT. 2. Diabetes: SSI. Diet 3. HTN: Lisinopril/Lopressor/Norvasc. 4. Hypothyroidism: Synthroid 5. DVT Prophylaxis: Lovenox 6. Advanced Directives: DNR 08/01/18 16:14
[2018-08-01] MEDS: Enoxaparin(*) 40 MG/0.4 ML SYR SUBCUT SCH (20:14)
[2018-08-02] MEDS: Levothyroxine TAB* 50 MCG TAB PO SCH (04:51)
[2018-08-02] MEDS: Insulin LISPRO* 1 UNITS UNIT SUBCUT SCH ×3 (07:48→16:53)
[2018-08-02] MEDS: Nystatin TOP POWDER* 15 GM BTL TOPICAL SCH ×2 (07:51→21:02)
[2018-08-02] MEDS: Carbidopa/Levodop 25/100 MG TAB(*) PO SCH ×3 (08:52→21:01)
[2018-08-02] MEDS: Lisinopril TAB* 10 MG PO SCH (08:52)
[2018-08-02] MEDS: Docusate CAP* 100 MG PO SCH ×2 (08:52→21:01)
[2018-08-02] MEDS: Metoprolol Tartrate TAB* 50 mg PO SCH ×2 (08:52→21:01)
[2018-08-02] MEDS: amLODIPine TAB* 5 MG PO SCH (08:52)
--- NOTE | 2018-08-02 17:44 | PN ---
Progress Note Date of Service: 08/02/18 Note: MAGNO CALLEJAS was visited. Therapy notes read and reviewed. She is resting up for her therapy tomorrow. No complaints otherwise Current Medications: Active Medications Generic Name Dose Route Start Last Admin Trade Name Freq PRN Reason Stop Dose Admin Acetaminophen 650 mg 07/23/18 11:56 07/31/18 14:29 Tylenol Tab* PO 650 mg Q6H PRN Administration FEVER/PAIN Amlodipine Besylate 10 mg 07/24/18 09:00 08/02/18 08:52 Norvasc Tab* PO 10 mg DAILY LUIS Administration Carbidopa/Levodopa 1 tab 07/23/18 14:00 08/02/18 14:16 Sinemet 25/100 Tab(*) PO 1 tab TID LUIS Administration Dextrose 12.5 gm 07/23/18 12:01 D50w Syringe 50 Ml* IV PUSH .FOR FS < 60 - SS PRN FS < 60 Docusate Sodium 100 mg 07/23/18 21:00 08/02/18 08:52 Colace Cap* PO 100 mg BID LUIS Administration Enoxaparin Sodium 40 mg 07/23/18 21:00 08/01/18 20:14 Lovenox(*) SUBCUT 40 mg Q24H LUIS Administration Insulin Human Lispro 0 - 10 units 07/23/18 16:30 08/02/18 16:53 Humalog* SUBCUT Not Given [facility] Protocol Levothyroxine Sodium 50 mcg 07/24/18 06:00 08/02/18 04:51 Synthroid Tab* PO 50 mcg DAILY@0600 LUIS Administration Lisinopril 40 mg 07/24/18 09:00 08/02/18 08:52 Prinivil Tab* PO 40 mg DAILY LUIS Administration Magnesium Hydroxide 30 ml 07/23/18 11:56 Milk Of Magnesia Liq* PO Q6H PRN CONSTIPATION Metoprolol Tartrate 50 mg 07/23/18 21:00 08/02/18 08:52 Lopressor Tab* PO 50 mg Q12HR LUIS Administration Nystatin 1 applic 07/24/18 21:00 08/02/18 07:51 Nystatin Top Powder* TOPICAL Not Given BID LUIS Oxycodone/Acetaminophen 1 tab 07/23/18 12:03 Percocet 5/325 Tab* PO Q6H PRN PAIN - MODERATE TO SEVERE Senna 2 tab 07/23/18 11:56 Senokot Tab* PO BEDTIME PRN CONSTIPATION Vital Signs: Vital Signs Temp Pulse Resp BP Pulse Ox 98.0 F 62 16 130/84 96 08/02/18 16:34 08/02/18 16:34 08/02/18 16:34 08/02/18 16:34 08/02/18 16:34 Lab Results: Laboratory Results - last 24 hr 08/01/18 08/02/18 08/02/18 20:18 07:42 11:47 POC Glucose (mg/dL) 135 H 75 132 H 08/02/18 16:52 POC Glucose (mg/dL) 105 H Exam: GENERAL: Alert oriented SKIN: Fungal rash under breast folds improving LUNGS: Clear bilaterally HEART: reg rhythm ABDOMEN: Soft, +BS EXTREMITIES: Increased tone in UEs and LEs NEUROLOGIC: resting tremor in arms. Strength 4+/5 Assessment/Plan: 1. Parkinson's Disease: Sinemet TID. PT/OT. 2. Diabetes: SSI. Diet 3. HTN: Lisinopril/Lopressor/Norvasc. 4. Hypothyroidism: Synthroid 5. DVT Prophylaxis: Lovenox 6. Advanced Directives: DNR 08/02/18 17:44
[2018-08-02] MEDS: Enoxaparin(*) 40 MG/0.4 ML SYR SUBCUT SCH (21:02)
[2018-08-03] MEDS: Levothyroxine TAB* 50 MCG TAB PO SCH (05:58)
[2018-08-03] MEDS: Docusate CAP* 100 MG PO SCH ×2 (07:39→19:49)
[2018-08-03] MEDS: Nystatin TOP POWDER* 15 GM BTL TOPICAL SCH ×2 (08:33→19:50)
[2018-08-03] MEDS: Carbidopa/Levodop 25/100 MG TAB(*) PO SCH ×3 (08:34→19:49)
[2018-08-03] MEDS: Lisinopril TAB* 10 MG PO SCH (08:34)
[2018-08-03] MEDS: Metoprolol Tartrate TAB* 50 mg PO SCH ×2 (08:34→19:49)
[2018-08-03] MEDS: amLODIPine TAB* 5 MG PO SCH (08:34)
[2018-08-03] MEDS: Insulin LISPRO* 1 UNITS UNIT SUBCUT SCH ×3 (09:10→17:35)
--- NOTE | 2018-08-03 12:33 | PMRUTEAM ---
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 is able to perform a transfer using a 2 /w. Ambulation Assistance Supervision Ambulation Assistive Devices Rolling Walker Number of Feet Patient 150' Ambulated Stairs Assistance Supervision Stairs Recommended Devices Two Rails Number of Stairs 5 Curb Not Tested Manual Wheelchair Control/ Bilateral LE's Technique Wheelchair Propulsion Ability Moderate Assistance Wheelchair Distance (ft) 90 Objective Comments patient uses BLE to propell W/C with assist of tech writer. patient is quite fatigued. Occupational Therapy: Current Status Upper Body Dressing Min Assist Lower Body Dressing Mod Assist,Max Asst Bathing Mod Assist Toileting Mod Assist Toilet Transfer Contact Guard Assist,Min Assist Shower Transfer Contact Guard Assist,Min Assist Eating Supervision Rec Therapy: Current Status Summary of Assessment and Pt. was open to conversation - appropriate and Clinical Impression cooperative throughout. Pt. presented as dysphoric with a blunted affect. Pt. was interested in continued leisure visits. Treatment Goals Pt. will engage in leisure activities while on the unit. Treatment Plan Provide RT services and encourage involvement. Social Work: Current Status Discharge Plan return home with home care svs and family support Potential for Family Training pt's family are involved and supportive Anticipated Discharge Home Destination Discharge With home care svs and family support Nutrition: Current Status Monitoring Intake remains very good: 60-100% of meals. Eating independently. Last BM 07/25. BG remains adequately controlled: 73-178 past 24 hrs. Glipizide restarted 07/25. Also receiving Humalog as needed. No change to current diet intervention (consistent carb) indicated; will continue to follow. Goals: Physical Therapy: Initial Goals Bed Mobility Assistance Independent Transfer Mobility Assistance Independent Transfer/Bed Mobility Rolling Walker Recommended Devices Ambulation Independent Ambulation Recommended Devices Rolling Walker Ambulation Distance 150 Stairs Assistance Independent Stair Recommended Devices One Rail Number of Stairs 6 Physical Therapy: Updated Goals Bed Mobility Assistance Independent Transfer/Bed Mobility Rolling Walker Recommended Devices Ambulation Assistance Independent Ambulation Assistive Devices Rolling Walker Ambulation Distance (ft) 150' Stairs Assistance Independent Stairs Recommended Devices One Rail Number of Stairs 6 Occupational Therapy: Initial Goals Goals to be Completed in (Days 2-3 weeks ) Upper Body Bathing Routine Modified Independent with Lower Body Bathing Routine Modified Independent with Upper Body Dressing Routine Modified Independent with Lower Body Dressing Routine Modified Independent with Toilet Hygeine and Clothing Modified Independent with Management Routine Toilet Transfer Routine Modified Independent with Step-In Shower Transfer Modified Independent with Routine Functional Transfers for ADL Modified Independent with Grooming Routine Independent Feeding Routine Independent Nutrition: Goals Intervention Goals 1. Maintain improved oral intake to support maintenance of lean body mass. 2. Maintain adequate glycemic control per inpatient parameters, with consideration for advanced age and debility. 3. Staff to provide appropriate support with opening of containers/set up. Social Work: Goals Discharge Plan return home with home care svs and family support Potential for Family Training pt's family are involved and supportive Anticipated Discharge Home Destination Discharge With home care svs and family support Care Plan: Care Plan ADL's - Improve/Maintain Start: 07/23/18 16:51 Freq: DAILY Status: Active Target: Protocol: Activity Type Activity Date Activity User E-Sign Co-Sign Detail Recorded Client Recorded Date Recorded By Document 07/30/18 11:56 [id number] [id number] 07/30/18 11:56 [id number] 07/30/18 11:56 PMRU Outcome: ADL's/ADL Transfers Orders/Interventions Occupational Therapy Evaluation & Treatment Communication Tool in Patient Room Device Yes Address Deficits Secondary To: Parkinson's dz Patient to receive OT 5x/wk for 60-120 Therex min/day Self Care Management Group Therapy Neuromuscular ReEducation UE/LE ADL's with Assist Yes: Bhumika ADL Transfers with Assist Yes: Bhumika Toileting: Transfers,Clothing Management Yes: Bhumika ,Hygeine w/Assist Light Kitchen/Laundry w/Assist Yes: light meal prep Bhumika Progression Toward Outcome/Goals Progressing Outcome/Goals Met Pt participated well in ADL treatment session, increased independence with LE dressing with use of AE. DVT Prophylaxis- Improve/Maintain Start: 07/23/18 10:54 Freq: QSHIFT Status: Active Target: Protocol: Activity Type Activity Date Activity User E-Sign Co-Sign Detail Recorded Client Recorded Date Recorded By Document 08/03/18 11:23 [id number] [id number] 08/03/18 11:34 [id number] 08/03/18 11:23 PMRU Outcome: DVT Prophylaxis Outcome/Goals Remains Free of DVT Complies with DVT Prophylaxis /Treatment TEDS Stockings on Every AM, Off at HS Progression Toward Outcome/Goals Progressing Discharge Planning - Improve/Maintain Start: 07/23/18 10:54 Freq: DAILY Status: Active Target: Protocol: Activity Type Activity Date Activity User E-Sign Co-Sign Detail Recorded Client Recorded Date Recorded By Document 08/03/18 06:12 [id number] [email or web address] 08/03/18 06:12 [id number] 08/03/18 06:12 PMRU Outcome: Discharge Planning Progression Toward Outcome/Goals Progressing Education-Improve/Maintain Start: 07/23/18 10:54 Freq: QSHIFT Status: Active Target: Protocol: Activity Type Activity Date Activity User E-Sign Co-Sign Detail Recorded Client Recorded Date Recorded By Document 08/03/18 11:23 [id number] [id number] 08/03/18 11:34 [id number] 08/03/18 11:23 PMRU Outcome: Education Outcome/Goals Encourage Questions Progression Toward Outcome/Goals Progressing Medication Administration Start: 07/23/18 10:54 Freq: QSHIFT Status: Active Target: Protocol: Activity Type Activity Date Activity User E-Sign Co-Sign Detail Recorded Client Recorded Date Recorded By Document 08/03/18 11:23 [id number] [email or web address] 08/03/18 11:34 [id number] 08/03/18 11:23 PMRU Outcome: Medication Administration Assess Patient Knowledge/Teach Med Yes Education for all Meds Outcome/Goals Demonstrates Understanding Progression Towards Outcome/Goals Progressing Is Patient Going Home on Lovenox? No Metabolic Status- Improve/Maintain Start: 07/23/18 10:54 Freq: QSHIFT Status: Active Target: Protocol: Activity Type Activity Date Activity User E-Sign Co-Sign Detail Recorded Client Recorded Date Recorded By Document 08/03/18 11:23 [id number] [email or web address] 08/03/18 11:34 [id number] 08/03/18 11:23 PMRU Outcome: Metabolic Status Have Fingersticks Been Ordered Yes Fingerstick Order Frequency AC & HS Outcome/Goals Maintain/ Improve Metabolic Status Demonstrate Knowledge of Prevention/ Treatment of Metabolic Imbalances Progression Toward Outcome/Goals Progressing Mobility- Improve/Maintain Start: 07/25/18 15:19 Freq: DAILY Status: Active Target: Protocol: Activity Type Activity Date Activity User E-Sign Co-Sign Detail Recorded Client Recorded Date Recorded By Document 07/25/18 15:20 [id number] [email or web address] 07/25/18 15:22 [id number] 07/25/18 15:20 PMRU Outcome: Mobility Physical Therapy Evaluation and Yes Treatment Activity OOB with Assistance Yes Device Yes: FWW Assistance Yes: Min-CGA Patient to be seen 5x/wk for 60-120 min/ Therex day for: Mobility Training Gait Training Balance Outcome/Goals Maintain/ Achieve Baseline Mobility Status Improve Mobility Status Demonstrates Proper Use of Assistive Devices Free from Complications of Immobility Progression Toward Outcome/Goals Progressing Bed Mobility Yes: Ind Transfers Yes: Mod I with walker Gait x ft Yes: Mod I with walker x150ft Up/Down Stairs Yes: Ind x6 steps, 1 rail With HEP Yes Neurological- Improve/Maintain Start: 07/23/18 10:54 Freq: QSHIFT Status: Active Target: Protocol: Activity Type Activity Date Activity User E-Sign Co-Sign Detail Recorded Client Recorded Date Recorded By Document 08/03/18 11:23 [id number] 08/03/18 11:34 [id number] 08/03/18 11:23 PMRU Outcome: Neurological Weakness/Aphasia Weakness Outcome/Goals Maintain/ Achieve Baseline Neurological Status Improve Neurological Status Maintain/ Improve Strength/ROM Progression Toward Outcome/Goals Progressing Safety- Improve/Maintain Start: 07/23/18 10:54 Freq: QSHIFT Status: Active Target: Protocol: Activity Type Activity Date Activity User E-Sign Co-Sign Detail Recorded Client Recorded Date Recorded By Document 08/03/18 11:23 [id number] [email or web address] 08/03/18 11:34 [id number] 08/03/18 11:23 PMRU Outcome: Safety Outcome/Goals Remain Free of Injury or Harm Cooperates with Safety Measures for Least Restrictive Environment Progression Toward Outcome/Goals Progressing Outcome/Goals Met Comment PA in use Medicine Note: Length of Stay: 9 days Anticipated Discharge Destination: Home Tentative Discharge Date: 08/12/18 Discharged to: Home
--- NOTE | 2018-08-03 19:45 | PN ---
Progress Note Date of Service: 08/03/18 Note: MAGNO CALLEJAS was visited. Therapy notes read and reviewed. She was discussed in interdisciplinary team rounds. She has made some gains. Otherwise ok. Current Medications: Active Medications Generic Name Dose Route Start Last Admin Trade Name Freq PRN Reason Stop Dose Admin Acetaminophen 650 mg 07/23/18 11:56 07/31/18 14:29 Tylenol Tab* PO 650 mg Q6H PRN Administration FEVER/PAIN Amlodipine Besylate 10 mg 07/24/18 09:00 08/03/18 08:34 Norvasc Tab* PO 10 mg DAILY LUIS Administration Carbidopa/Levodopa 1 tab 07/23/18 14:00 08/03/18 14:08 Sinemet 25/100 Tab(*) PO 1 tab TID LUIS Administration Dextrose 12.5 gm 07/23/18 12:01 D50w Syringe 50 Ml* IV PUSH .FOR FS < 60 - SS PRN FS < 60 Docusate Sodium 100 mg 07/23/18 21:00 08/03/18 07:39 Colace Cap* PO Not Given BID LUIS Enoxaparin Sodium 40 mg 07/23/18 21:00 08/02/18 21:02 Lovenox(*) SUBCUT 40 mg Q24H LUIS Administration Insulin Human Lispro 0 - 10 units 07/23/18 16:30 08/03/18 17:35 Humalog* SUBCUT Not Given AC [facility] Protocol Levothyroxine Sodium 50 mcg 07/24/18 06:00 08/03/18 05:58 Synthroid Tab* PO 50 mcg DAILY@0600 LUIS Administration Lisinopril 40 mg 07/24/18 09:00 08/03/18 08:34 Prinivil Tab* PO 40 mg DAILY LUIS Administration Magnesium Hydroxide 30 ml 07/23/18 11:56 Milk Of Magnesia Liq* PO Q6H PRN CONSTIPATION Metoprolol Tartrate 50 mg 07/23/18 21:00 08/03/18 08:34 Lopressor Tab* PO 50 mg Q12HR LUIS Administration Nystatin 1 applic 07/24/18 21:00 08/03/18 08:33 Nystatin Top Powder* TOPICAL 1 applic BID LUIS Administration Oxycodone/Acetaminophen 1 tab 07/23/18 12:03 Percocet 5/325 Tab* PO Q6H PRN PAIN - MODERATE TO SEVERE Senna 2 tab 07/23/18 11:56 Senokot Tab* PO BEDTIME PRN CONSTIPATION Vital Signs: Vital Signs Temp Pulse Resp BP Pulse Ox 97.6 F 60 18 129/61 97 08/03/18 16:12 08/03/18 16:12 08/03/18 16:12 08/03/18 16:12 08/03/18 16:12 Lab Results: Laboratory Results - last 24 hr 08/02/18 08/03/18 08/03/18 21:06 07:37 11:48 POC Glucose (mg/dL) 144 H 139 H 110 H 08/03/18 16:35 POC Glucose (mg/dL) 109 H Exam: GENERAL: Alert oriented LUNGS: Clear bilaterally HEART: reg rhythm ABDOMEN: Soft, +BS EXTREMITIES: Increased tone in UEs and LEs NEUROLOGIC: resting tremor in arms. Strength 4+/5 Assessment/Plan: 1. Parkinson's Disease: Sinemet TID. PT/OT. 2. Diabetes: SSI. Diet 3. HTN: Lisinopril/Lopressor/Norvasc. 4. Hypothyroidism: Synthroid 5. DVT Prophylaxis: Lovenox 6. Advanced Directives: DNR 08/03/18 19:45
[2018-08-03] MEDS: Enoxaparin(*) 40 MG/0.4 ML SYR SUBCUT SCH (19:50)
[2018-08-04] MEDS: Levothyroxine TAB* 50 MCG TAB PO SCH (05:09)
[2018-08-04] MEDS: Insulin LISPRO* 1 UNITS UNIT SUBCUT SCH ×3 (08:53→16:56)
[2018-08-04] MEDS: amLODIPine TAB* 5 MG PO SCH (08:53)
[2018-08-04] MEDS: Carbidopa/Levodop 25/100 MG TAB(*) PO SCH ×3 (08:53→21:16)
[2018-08-04] MEDS: Nystatin TOP POWDER* 15 GM BTL TOPICAL SCH ×2 (08:54→21:17)
[2018-08-04] MEDS: Lisinopril TAB* 10 MG PO SCH (08:54)
[2018-08-04] MEDS: Docusate CAP* 100 MG PO SCH ×3 (08:54→21:10)
[2018-08-04] MEDS: Metoprolol Tartrate TAB* 50 mg PO SCH ×2 (08:55→21:16)
--- NOTE | 2018-08-04 11:10 | PN ---
Progress Note Date of Service: 08/04/18 Note: MAGNO CALLEJAS was visited. Nursing and therapy notes read and reviewed. No chest pain, shortness of breath or abdominal pain. Uses ibuprofen 200mg bid prn at home for shoulder pain and would like to use it here. Denies any dyspepsia. She is aware of increased risk of CVA and AR with ibuprofen and nsaid use in general and has tolerated ibuprofen and aleve at home. Current Medications: Active Medications Generic Name Dose Route Start Last Admin Trade Name Freq PRN Reason Stop Dose Admin Acetaminophen 650 mg 07/23/18 11:56 07/31/18 14:29 Tylenol Tab* PO 650 mg Q6H PRN Administration FEVER/PAIN Amlodipine Besylate 10 mg 07/24/18 09:00 08/04/18 08:53 Norvasc Tab* PO 10 mg DAILY LUIS Administration Carbidopa/Levodopa 1 tab 07/23/18 14:00 08/04/18 08:53 Sinemet 25/100 Tab(*) PO 1 tab TID LUIS Administration Dextrose 12.5 gm 07/23/18 12:01 D50w Syringe 50 Ml* IV PUSH .FOR FS < 60 - SS PRN FS < 60 Docusate Sodium 100 mg 07/23/18 21:00 08/04/18 08:58 Colace Cap* PO Not Given BID LUIS Enoxaparin Sodium 40 mg 07/23/18 21:00 08/03/18 19:50 Lovenox(*) SUBCUT 40 mg Q24H LUIS Administration Ibuprofen 200 mg 08/04/18 11:03 Advil Tab* PO Q8H PRN PAIN Insulin Human Lispro 0 - 10 units 07/23/18 16:30 08/04/18 08:53 Humalog* SUBCUT 1 unit AC LUIS Administration Protocol Levothyroxine Sodium 50 mcg 07/24/18 06:00 08/04/18 05:09 Synthroid Tab* PO 50 mcg DAILY@0600 LUIS Administration Lisinopril 40 mg 07/24/18 09:00 08/04/18 08:54 Prinivil Tab* PO 40 mg DAILY LUIS Administration Magnesium Hydroxide 30 ml 07/23/18 11:56 Milk Of Magnesia Liq* PO Q6H PRN CONSTIPATION Metoprolol Tartrate 50 mg 07/23/18 21:00 08/04/18 08:55 Lopressor Tab* PO 50 mg Q12HR LUIS Administration Nystatin 1 applic 07/24/18 21:00 08/04/18 08:54 Nystatin Top Powder* TOPICAL 1 applic BID LUIS Administration Oxycodone/Acetaminophen 1 tab 07/23/18 12:03 Percocet 5/325 Tab* PO Q6H PRN PAIN - MODERATE TO SEVERE Senna 2 tab 07/23/18 11:56 Senokot Tab* PO BEDTIME PRN CONSTIPATION Vital Signs: Vital Signs Temp Pulse Resp BP Pulse Ox 98.2 F 59 16 131/64 100 08/04/18 05:10 08/04/18 05:10 08/04/18 05:10 08/04/18 05:10 08/04/18 05:10 Lab Results: Laboratory Results - last 24 hr 08/03/18 08/03/18 08/03/18 11:48 16:35 19:48 POC Glucose (mg/dL) 110 H 109 H 183 H 08/04/18 07:27 POC Glucose (mg/dL) 138 H Exam: GENERAL: No acute distress. Alert and appropriate. LUNGS: Clear bilaterally HEART: regular rate and rhythm ABDOMEN: Soft, +BS, non-tender, non-distended EXTREMITIES: Increased tone in UEs and LEs NEUROLOGIC: resting tremor in arms. Strength 4+/5 bue and ble. Assessment/Plan: 1. Parkinson's Disease: Sinemet TID. PT/OT. Neurology f/u after discharge 2. Diabetes: SSI. Diet 3. HTN: Lisinopril/Lopressor/Norvasc. 4. Hypothyroidism: Synthroid 5. DVT Prophylaxis: Lovenox 6. Advanced Directives: DNR 7. Chronic shoulder pain: allow ibuprofen 200mg tid prn. 08/04/18 11:09
[2018-08-04] MEDS: Enoxaparin(*) 40 MG/0.4 ML SYR SUBCUT SCH (21:14)
[2018-08-05] MEDS: Levothyroxine TAB* 50 MCG TAB PO SCH (05:54)
[2018-08-05] MEDS: Lisinopril TAB* 10 MG PO SCH (08:10)
[2018-08-05] MEDS: Insulin LISPRO* 1 UNITS UNIT SUBCUT SCH ×3 (08:11→16:56)
[2018-08-05] MEDS: Carbidopa/Levodop 25/100 MG TAB(*) PO SCH ×3 (08:11→21:15)
[2018-08-05] MEDS: amLODIPine TAB* 5 MG PO SCH (08:11)
[2018-08-05] MEDS: Ibuprofen TAB* 200 MG PO PRN ×2 (08:11→21:15)
[2018-08-05] MEDS: Metoprolol Tartrate TAB* 50 mg PO SCH ×2 (08:11→21:15)
[2018-08-05] MEDS: Nystatin TOP POWDER* 15 GM BTL TOPICAL SCH ×2 (08:12→21:22)
[2018-08-05] MEDS: Docusate CAP* 100 MG PO SCH ×2 (08:12→21:22)
--- NOTE | 2018-08-05 19:53 | PN ---
Progress Note Date of Service: 08/05/18 Note: MAGNO CALLEJAS was visited. Therapy notes read and reviewed. She is moving ok but her balance is problematic. Will need to watch closely to see if she can improve. Current Medications: Active Medications Generic Name Dose Route Start Last Admin Trade Name Freq PRN Reason Stop Dose Admin Acetaminophen 650 mg 07/23/18 11:56 07/31/18 14:29 Tylenol Tab* PO 650 mg Q6H PRN Administration FEVER/PAIN Amlodipine Besylate 10 mg 07/24/18 09:00 08/05/18 08:11 Norvasc Tab* PO 10 mg DAILY LUIS Administration Carbidopa/Levodopa 1 tab 07/23/18 14:00 08/05/18 13:52 Sinemet 25/100 Tab(*) PO 1 tab TID LUIS Administration Dextrose 12.5 gm 07/23/18 12:01 D50w Syringe 50 Ml* IV PUSH .FOR FS < 60 - SS PRN FS < 60 Docusate Sodium 100 mg 07/23/18 21:00 08/05/18 08:12 Colace Cap* PO Not Given BID LUIS Enoxaparin Sodium 40 mg 07/23/18 21:00 08/04/18 21:14 Lovenox(*) SUBCUT 40 mg Q24H LUIS Administration Ibuprofen 200 mg 08/04/18 11:03 08/05/18 08:11 Advil Tab* PO 200 mg Q8H PRN Administration PAIN Insulin Human Lispro 0 - 10 units 07/23/18 16:30 08/05/18 16:56 Humalog* SUBCUT Not Given [facility] Protocol Levothyroxine Sodium 50 mcg 07/24/18 06:00 08/05/18 05:54 Synthroid Tab* PO 50 mcg DAILY@0600 LUIS Administration Lisinopril 40 mg 07/24/18 09:00 08/05/18 08:10 Prinivil Tab* PO 40 mg DAILY LUIS Administration Magnesium Hydroxide 30 ml 07/23/18 11:56 Milk Of Magnesia Liq* PO Q6H PRN CONSTIPATION Metoprolol Tartrate 50 mg 07/23/18 21:00 08/05/18 08:11 Lopressor Tab* PO 50 mg Q12HR LUIS Administration Nystatin 1 applic 07/24/18 21:00 08/05/18 08:12 Nystatin Top Powder* TOPICAL 1 applic BID LUIS Administration Oxycodone/Acetaminophen 1 tab 07/23/18 12:03 Percocet 5/325 Tab* PO Q6H PRN PAIN - MODERATE TO SEVERE Senna 2 tab 07/23/18 11:56 Senokot Tab* PO BEDTIME PRN CONSTIPATION Vital Signs: Vital Signs Temp Pulse Resp BP Pulse Ox 97.9 F 54 18 115/57 99 08/05/18 16:01 08/05/18 16:01 08/05/18 16:01 08/05/18 16:01 08/05/18 16:01 Lab Results: Laboratory Results - last 24 hr 08/04/18 08/05/18 08/05/18 20:21 07:23 12:08 POC Glucose (mg/dL) 163 H 141 H 91 08/05/18 16:41 POC Glucose (mg/dL) 120 H Exam: GENERAL: Alert oriented LUNGS: Clear bilaterally HEART: reg rhythm ABDOMEN: Soft, +BS EXTREMITIES: Increased tone in UEs and LEs NEUROLOGIC: resting tremor in arms. Strength 4+/5 Assessment/Plan: 1. Parkinson's Disease: Sinemet TID. PT/OT. Neurology f/u after discharge 2. Diabetes: SSI. Diet 3. HTN: Lisinopril/Lopressor/Norvasc. 4. Hypothyroidism: Synthroid 5. DVT Prophylaxis: Lovenox 6. Advanced Directives: DNR 7. Chronic shoulder pain: Ibuprofen 200mg tid prn. 08/05/18 19:53
[2018-08-05] MEDS: Enoxaparin(*) 40 MG/0.4 ML SYR SUBCUT SCH (21:19)
[2018-08-06] MEDS: Levothyroxine TAB* 50 MCG TAB PO SCH (05:50)
[2018-08-06] MEDS: Metoprolol Tartrate TAB* 50 mg PO SCH ×2 (10:26→20:50)
[2018-08-06] MEDS: Nystatin TOP POWDER* 15 GM BTL TOPICAL SCH (10:26)
[2018-08-06] MEDS: Carbidopa/Levodop 25/100 MG TAB(*) PO SCH ×3 (10:26→20:50)
[2018-08-06] MEDS: Docusate CAP* 100 MG PO SCH ×2 (10:26→20:48)
[2018-08-06] MEDS: amLODIPine TAB* 5 MG PO SCH (10:26)
[2018-08-06] MEDS: Lisinopril TAB* 10 MG PO SCH (10:26)
[2018-08-06] MEDS: Insulin LISPRO* 1 UNITS UNIT SUBCUT SCH ×3 (10:27→16:44)
[2018-08-06] MEDS: Ibuprofen TAB* 200 MG PO PRN (10:45)
[2018-08-06] MEDS: Enoxaparin(*) 40 MG/0.4 ML SYR SUBCUT SCH (20:48)
--- NOTE | 2018-08-06 22:26 | PN ---
Progress Note Date of Service: 08/06/18 Note: MAGNO CALLEJAS was visited. Therapy notes read and reviewed. 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 She is struggling to improve with her therapies. May need family meeting next week Current Medications: Active Medications Generic Name Dose Route Start Last Admin Trade Name Freq PRN Reason Stop Dose Admin Acetaminophen 650 mg 07/23/18 11:56 07/31/18 14:29 Tylenol Tab* PO 650 mg Q6H PRN Administration FEVER/PAIN Amlodipine Besylate 10 mg 07/24/18 09:00 08/06/18 10:26 Norvasc Tab* PO 10 mg DAILY LUIS Administration Carbidopa/Levodopa 1 tab 07/23/18 14:00 08/06/18 20:50 Sinemet 25/100 Tab(*) PO 1 tab TID LUIS Administration Dextrose 12.5 gm 07/23/18 12:01 D50w Syringe 50 Ml* IV PUSH .FOR FS < 60 - SS PRN FS < 60 Docusate Sodium 100 mg 07/23/18 21:00 08/06/18 20:48 Colace Cap* PO Not Given BID LUIS Enoxaparin Sodium 40 mg 07/23/18 21:00 08/06/18 20:48 Lovenox(*) SUBCUT 40 mg Q24H LUIS Administration Ibuprofen 200 mg 08/04/18 11:03 08/06/18 10:45 Advil Tab* PO 200 mg Q8H PRN Administration PAIN Insulin Human Lispro 0 - 10 units 07/23/18 16:30 08/06/18 16:44 Humalog* SUBCUT 1 unit AC LUIS Administration Protocol Levothyroxine Sodium 50 mcg 07/24/18 06:00 08/06/18 05:50 Synthroid Tab* PO 50 mcg DAILY@0600 LUIS Administration Lisinopril 40 mg 07/24/18 09:00 08/06/18 10:26 Prinivil Tab* PO 40 mg DAILY LUIS Administration Magnesium Hydroxide 30 ml 07/23/18 11:56 Milk Of Magnesia Liq* PO Q6H PRN CONSTIPATION Metoprolol Tartrate 50 mg 07/23/18 21:00 08/06/18 20:50 Lopressor Tab* PO 50 mg Q12HR LUIS Administration Oxycodone/Acetaminophen 1 tab 12/20/18 12:03 Percocet 5/325 Tab* PO Q6H PRN PAIN - MODERATE TO SEVERE Senna 2 tab 07/23/18 11:56 Senokot Tab* PO BEDTIME PRN CONSTIPATION Vital Signs: Vital Signs Temp Pulse Resp BP Pulse Ox 98.1 F 58 18 112/89 99 08/06/18 16:10 08/06/18 16:10 08/06/18 20:00 08/06/18 16:10 08/06/18 18:58 Lab Results: Laboratory Results - last 24 hr 08/06/18 08/06/18 08/06/18 07:37 12:02 16:14 POC Glucose (mg/dL) 95 144 H 131 H 08/06/18 20:27 POC Glucose (mg/dL) 135 H Exam: GENERAL: Alert oriented LUNGS: Clear bilaterally HEART: reg rhythm ABDOMEN: Soft, +BS EXTREMITIES: Increased tone in UEs and LEs NEUROLOGIC: resting tremor in arms. Strength 4+/5 Assessment/Plan: 1. Parkinson's Disease: Sinemet TID. PT/OT. Neurology f/u after discharge 2. Diabetes: SSI. Diet 3. HTN: Lisinopril/Lopressor/Norvasc. 4. Hypothyroidism: Synthroid 5. DVT Prophylaxis: Lovenox 6. Advanced Directives: DNR 7. Chronic shoulder pain: Ibuprofen 200mg tid prn. 08/06/18 22:27
[2018-08-07] MEDS: Levothyroxine TAB* 50 MCG TAB PO SCH (05:47)
[2018-08-07 07:11] LABS: ABS Basophils 0 10^3/ul (0-0.2); ABS Eosinophils 0.1 10^3/ul (0-0.6); ABS Lymphocytes 1.5 10^3/ul (1.0-4.8); ABS Monocytes 0.4 10^3/ul (0-0.8); ABS Neutrophils 3.4 10^3/ul (1.5-7.7); ABS Nucleated RBC 0 10^3/ul; Albumin 3.2 g/dL (3.2-5.2); Albumin/Globulin Ratio 1.3 (1-3); BUN/Creatinine Ratio 30.4 (8-20); Calcium 8.9 mg/dL (8.6-10.3); EGFR Non-African American 81.3 (>60); Eosinophil % 2.2 %; Globulin 2.5 g/dL (2-4); Hematocrit 42 % (35-47); Hemoglobin 14.3 g/dl (12.0-16.0); Lymphocyte % 27.3 %; Mean Corpuscular HGB Conc 34 g/dl (31-36); Mean Corpuscular Hemoglobin 31 pg (27-31); Mean Corpuscular Volume 92 fL (80-97); Mean Platelet Volume 8.3 fL (7.4-10.4); Nucleated Red Blood Cells % 0.1; Platelet Count 188 10^3/ul (150-450); Potassium 4.1 mmol/L (3.5-5.0); Red Blood Count 4.59 10^6/ul (4.00-5.40); Red Cell Distribution Width 14 % (10.5-15); Total Bilirubin 0.5 mg/dL (0.2-1.0); Total Protein 5.7 g/dL (6.4-8.9); White Blood Count 5.5 10^3/ul (3.5-10.8)
[2018-08-07] MEDS: amLODIPine TAB* 5 MG PO SCH (08:13)
[2018-08-07] MEDS: Carbidopa/Levodop 25/100 MG TAB(*) PO SCH ×3 (08:13→21:32)
[2018-08-07] MEDS: Metoprolol Tartrate TAB* 50 mg PO SCH ×2 (08:14→21:34)
[2018-08-07] MEDS: Docusate CAP* 100 MG PO SCH ×2 (08:14→21:32)
[2018-08-07] MEDS: Ibuprofen TAB* 200 MG PO PRN ×2 (08:14→16:51)
[2018-08-07] MEDS: Lisinopril TAB* 10 MG PO SCH (08:14)
[2018-08-07] MEDS: Insulin LISPRO* 1 UNITS UNIT SUBCUT SCH ×3 (10:24→16:51)
--- NOTE | 2018-08-07 11:55 | PN ---
Progress Note Date of Service: 08/07/18 Note: MAGNO CALLEJAS was visited. Nursing and therapy notes read and reviewed. No chest pain, shortness of breath or abdominal pain. Current Medications: Active Medications Generic Name Dose Route Start Last Admin Trade Name Freq PRN Reason Stop Dose Admin Acetaminophen 650 mg 07/23/18 11:56 07/31/18 14:29 Tylenol Tab* PO 650 mg Q6H PRN Administration FEVER/PAIN Amlodipine Besylate 10 mg 07/24/18 09:00 08/07/18 08:13 Norvasc Tab* PO 10 mg DAILY LUIS Administration Carbidopa/Levodopa 1 tab 07/23/18 14:00 08/07/18 08:13 Sinemet 25/100 Tab(*) PO 1 tab TID LUIS Administration Dextrose 12.5 gm 07/23/18 12:01 D50w Syringe 50 Ml* IV PUSH .FOR FS < 60 - SS PRN FS < 60 Docusate Sodium 100 mg 07/23/18 21:00 08/07/18 08:14 Colace Cap* PO Not Given BID LUIS Enoxaparin Sodium 40 mg 07/23/18 21:00 08/06/18 20:48 Lovenox(*) SUBCUT 40 mg Q24H LUIS Administration Ibuprofen 200 mg 08/04/18 11:03 08/07/18 08:14 Advil Tab* PO 200 mg Q8H PRN Administration PAIN Insulin Human Lispro 0 - 10 units 07/23/18 16:30 08/07/18 10:24 Humalog* SUBCUT Not Given [facility] Protocol Levothyroxine Sodium 50 mcg 07/24/18 06:00 08/07/18 05:47 Synthroid Tab* PO 50 mcg DAILY@0600 LUIS Administration Lisinopril 40 mg 07/24/18 09:00 08/07/18 08:14 Prinivil Tab* PO 40 mg DAILY LUIS Administration Magnesium Hydroxide 30 ml 07/23/18 11:56 Milk Of Magnesia Liq* PO Q6H PRN CONSTIPATION Metoprolol Tartrate 50 mg 07/23/18 21:00 08/07/18 08:14 Lopressor Tab* PO 50 mg Q12HR LUIS Administration Oxycodone/Acetaminophen 1 tab 07/23/18 12:03 Percocet 5/325 Tab* PO Q6H PRN PAIN - MODERATE TO SEVERE Senna 2 tab 07/23/18 11:56 Senokot Tab* PO BEDTIME PRN CONSTIPATION Vital Signs: Vital Signs Temp Pulse Resp BP Pulse Ox 97.8 F 52 18 121/61 98 08/07/18 05:06 08/07/18 05:06 08/07/18 05:06 08/07/18 05:06 08/07/18 05:06 Lab Results: Laboratory Results - last 24 hr 08/06/18 08/06/18 08/06/18 12:02 16:14 20:27 WBC RBC Hgb Hct MCV MCH MCHC RDW Plt Count MPV Neut % (Auto) Lymph % (Auto) [place] % (Auto) Eos % (Auto) Baso % (Auto) Absolute Neuts (auto) Absolute Lymphs (auto) Absolute Monos (auto) Absolute Eos (auto) Absolute Basos (auto) Absolute Nucleated RBC Nucleated RBC % Sodium Potassium Chloride Carbon Dioxide Anion Gap BUN Creatinine Est GFR ( Amer) Est GFR (Non-Af Amer) BUN/Creatinine Ratio Glucose POC Glucose (mg/dL) 144 H 131 H 135 H Calcium Total Bilirubin AST ALT Alkaline Phosphatase Total Protein Albumin Globulin Albumin/Globulin Ratio 08/07/18 08/07/18 05:40 05:40 WBC 5.5 RBC 4.59 Hgb 14.3 Hct 42 MCV 92 MCH 31 MCHC 34 RDW 14 Plt Count 188 MPV 8.3 Neut % (Auto) 62.0 Lymph % (Auto) 27.3 [place] % (Auto) 7.6 Eos % (Auto) 2.2 Baso % (Auto) 0.9 Absolute Neuts (auto) 3.4 Absolute Lymphs (auto) 1.5 Absolute Monos (auto) 0.4 Absolute Eos (auto) 0.1 Absolute Basos (auto) 0 Absolute Nucleated RBC 0 Nucleated RBC % 0.1 Sodium 139 Potassium 4.1 Chloride 107 Carbon Dioxide 25 Anion Gap 7 BUN 21 Creatinine 0.69 Est GFR ( Amer) 98.3 Est GFR (Non-Af Amer) 81.3 BUN/Creatinine Ratio 30.4 H Glucose 135 H POC Glucose (mg/dL) Calcium 8.9 Total Bilirubin 0.50 AST 16 ALT 10 Alkaline Phosphatase 53 Total Protein 5.7 L Albumin 3.2 Globulin 2.5 Albumin/Globulin Ratio 1.3 Exam: GENERAL: Alert and appropriate LUNGS: Clear to auscultation bilaterally HEART: regular rate and rhythm ABDOMEN: Soft, +bowel sounds, non-tender, non-distended EXTREMITIES: Increased tone in UEs and LEs. No edema. NEUROLOGIC: resting tremor in arms. Strength 4+/5 bue and ble with normal sensation Assessment/Plan: 1. Parkinson's Disease: Sinemet TID. PT/OT. Neurology f/u after discharge 2. Diabetes: SSI. Diet 3. HTN: Lisinopril/Lopressor/Norvasc. 4. Hypothyroidism: Synthroid 5. DVT Prophylaxis: Lovenox 6. Advanced Directives: DNR 7. Chronic shoulder pain: Ibuprofen 200mg tid prn. 08/07/18 11:55
[2018-08-07] MEDS: Enoxaparin(*) 40 MG/0.4 ML SYR SUBCUT SCH (21:32)
[2018-08-08] MEDS: Levothyroxine TAB* 50 MCG TAB PO SCH (05:05)
[2018-08-08] MEDS: Insulin LISPRO* 1 UNITS UNIT SUBCUT SCH ×3 (08:28→16:21)
[2018-08-08] MEDS: Docusate CAP* 100 MG PO SCH (08:29)
[2018-08-08] MEDS ORDERED: Ondansetron ODT TAB* 4 MG SL PRN (09:11)
[2018-08-08] MEDS ORDERED: Docusate CAP* 100 MG PO PRN (09:26)
[2018-08-08] MEDS: Metoprolol Tartrate TAB* 50 mg PO SCH ×2 (10:25→20:17)
[2018-08-08] MEDS: amLODIPine TAB* 5 MG PO SCH (10:25)
[2018-08-08] MEDS: Carbidopa/Levodop 25/100 MG TAB(*) PO SCH ×3 (10:25→20:17)
[2018-08-08] MEDS: Lisinopril TAB* 10 MG PO SCH (10:28)
[2018-08-08 10:44] LABS: ABS Basophils 0 10^3/ul (0-0.2); ABS Eosinophils 0 10^3/ul (0-0.6); ABS Lymphocytes 1.5 10^3/ul (1.0-4.8); ABS Monocytes 0.6 10^3/ul (0-0.8); ABS Neutrophils 8.1 10^3/ul (1.5-7.7); ABS Nucleated RBC 0 10^3/ul; Eosinophil % 0.4 %; Hematocrit 43 % (35-47); Hemoglobin 14.5 g/dl (12.0-16.0); Lymphocyte % 14.3 %; Mean Corpuscular HGB Conc 34 g/dl (31-36); Mean Corpuscular Hemoglobin 31 pg (27-31); Mean Corpuscular Volume 93 fL (80-97); Mean Platelet Volume 8.2 fL (7.4-10.4); Nucleated Red Blood Cells % 0; Platelet Count 197 10^3/ul (150-450); Red Blood Count 4.65 10^6/ul (4.00-5.40); Red Cell Distribution Width 14 % (10.5-15); White Blood Count 10.3 10^3/ul (3.5-10.8)
[2018-08-08 11:07] LABS: Albumin 3.3 g/dL (3.2-5.2); Albumin/Globulin Ratio 1.3 (1-3); BUN/Creatinine Ratio 36.5 (8-20); Globulin 2.6 g/dL (2-4); Potassium 4.5 mmol/L (3.5-5.0); Total Bilirubin 0.6 mg/dL (0.2-1.0); Total Protein 5.9 g/dL (6.4-8.9)
--- NOTE | 2018-08-08 11:20 | PN ---
Progress Note Date of Service: 08/08/18 Note: MAGNO CALLEJAS was visited. Nursing and therapy notes read and reviewed. Last night woke up retching and also had 4 episodes of watery diarrhea. It has stopped and she is sipping wes mike this morning. No chest pain, shortness of breath or abdominal pain. She feels weak all over and tired from not sleeping last night. She was able to take her pills this morning but does not have an appetite. She has refused therapies this morning. Prior to last night she had not had a BM since 08/04/18 and was not using any bowel meds (refused colace). Current Medications: Active Medications Generic Name Dose Route Start Last Admin Trade Name Freq PRN Reason Stop Dose Admin Acetaminophen 650 mg 07/23/18 11:56 07/31/18 14:29 Tylenol Tab* PO 650 mg Q6H PRN Administration FEVER/PAIN Amlodipine Besylate 10 mg 07/24/18 09:00 08/08/18 10:25 Norvasc Tab* PO 10 mg DAILY LUIS Administration Carbidopa/Levodopa 1 tab 07/23/18 14:00 08/08/18 10:25 Sinemet 25/100 Tab(*) PO 1 tab TID LUIS Administration Dextrose 12.5 gm 07/23/18 12:01 D50w Syringe 50 Ml* IV PUSH .FOR FS < 60 - SS PRN FS < 60 Docusate Sodium 100 mg 08/08/18 09:26 Colace Cap* PO BID PRN CONSTIPATION Enoxaparin Sodium 40 mg 07/23/18 21:00 08/07/18 21:32 Lovenox(*) SUBCUT 40 mg Q24H LUIS Administration Ibuprofen 200 mg 08/04/18 11:03 08/07/18 16:51 Advil Tab* PO 200 mg Q8H PRN Administration PAIN Insulin Human Lispro 0 - 10 units 07/23/18 16:30 08/08/18 08:28 Humalog* SUBCUT 2 unit AC LUIS Administration Protocol Levothyroxine Sodium 50 mcg 07/24/18 06:00 08/08/18 05:05 Synthroid Tab* PO 50 mcg DAILY@0600 LUIS Administration Lisinopril 40 mg 07/24/18 09:00 08/08/18 10:28 Prinivil Tab* PO 40 mg DAILY LUIS Administration Magnesium Hydroxide 30 ml 07/23/18 11:56 Milk Of Magnesia Liq* PO Q6H PRN CONSTIPATION Metoprolol Tartrate 50 mg 07/23/18 21:00 08/08/18 10:25 Lopressor Tab* PO 50 mg Q12HR LUIS Administration Ondansetron HCl 4 mg 08/08/18 09:11 08/08/18 09:51 Zofran Odt Tab* SL 4 mg Q6H PRN Administration NAUSEA/VOMITING Oxycodone/Acetaminophen 1 tab 07/23/18 12:03 Percocet 5/325 Tab* PO Q6H PRN PAIN - MODERATE TO SEVERE Senna 2 tab 07/23/18 11:56 Senokot Tab* PO BEDTIME PRN CONSTIPATION Vital Signs: Vital Signs Temp Pulse Resp BP Pulse Ox 98.3 F 66 14 121/61 97 08/08/18 08:05 08/08/18 08:05 08/08/18 08:05 08/08/18 08:05 08/08/18 08:05 Lab Results: Laboratory Results - last 24 hr 08/07/18 08/07/18 08/07/18 07:41 12:04 16:20 WBC RBC Hgb Hct MCV MCH MCHC RDW Plt Count MPV Neut % (Auto) Lymph % (Auto) [place] % (Auto) Eos % (Auto) Baso % (Auto) Absolute Neuts (auto) Absolute Lymphs (auto) Absolute Monos (auto) Absolute Eos (auto) Absolute Basos (auto) Absolute Nucleated RBC Nucleated RBC % Sodium Potassium Chloride Carbon Dioxide Anion Gap BUN Creatinine Est GFR ( Amer) Est GFR (Non-Af Amer) BUN/Creatinine Ratio Glucose POC Glucose (mg/dL) 93 113 H 151 H Calcium Total Bilirubin AST ALT Alkaline Phosphatase Total Protein Albumin Globulin Albumin/Globulin Ratio 08/07/18 08/08/18 08/08/18 20:25 07:18 10:37 WBC 10.3 RBC 4.65 Hgb 14.5 Hct 43 MCV 93 MCH 31 MCHC 34 RDW 14 Plt Count 197 MPV 8.2 Neut % (Auto) 78.7 Lymph % (Auto) 14.3 [place] % (Auto) 6.2 Eos % (Auto) 0.4 Baso % (Auto) 0.4 Absolute Neuts (auto) 8.1 H Absolute Lymphs (auto) 1.5 Absolute Monos (auto) 0.6 Absolute Eos (auto) 0 Absolute Basos (auto) 0 Absolute Nucleated RBC 0 Nucleated RBC % 0 Sodium Potassium Chloride Carbon Dioxide Anion Gap BUN Creatinine Est GFR ( Amer) Est GFR (Non-Af Amer) BUN/Creatinine Ratio Glucose POC Glucose (mg/dL) 202 H 155 H Calcium Total Bilirubin AST ALT Alkaline Phosphatase Total Protein Albumin Globulin Albumin/Globulin Ratio 08/08/18 10:37 WBC RBC Hgb Hct MCV MCH MCHC RDW Plt Count MPV Neut % (Auto) Lymph % (Auto) [place] % (Auto) Eos % (Auto) Baso % (Auto) Absolute Neuts (auto) Absolute Lymphs (auto) Absolute Monos (auto) Absolute Eos (auto) Absolute Basos (auto) Absolute Nucleated RBC Nucleated RBC % Sodium 136 Potassium 4.5 Chloride 106 Carbon Dioxide 23 Anion Gap 7 BUN 27 H Creatinine 0.74 Est GFR ( Amer) 90.7 Est GFR (Non-Af Amer) 75.0 BUN/Creatinine Ratio 36.5 H Glucose 123 H POC Glucose (mg/dL) Calcium 9.0 Total Bilirubin 0.60 AST 14 ALT 14 Alkaline Phosphatase 57 Total Protein 5.9 L Albumin 3.3 Globulin 2.6 Albumin/Globulin Ratio 1.3 Exam: GENERAL: Alert and appropriate. O/P: moist mucous membranes LUNGS: Clear to auscultation bilaterally HEART: regular rate and rhythm ABDOMEN: Soft, +bowel sounds, non-tender, non-distended EXTREMITIES: Increased tone in UEs and LEs. No edema. NEUROLOGIC: resting tremor in arms. Strength 4+/5 bue and ble with normal sensation Assessment/Plan: 1. Parkinson's Disease: Sinemet TID. PT/OT. Neurology f/u after discharge 2. Diabetes: SSI. Diet 3. HTN: Lisinopril/Lopressor/Norvasc. 4. Hypothyroidism: Synthroid 5. DVT Prophylaxis: Lovenox 6. Advanced Directives: DNR 7. Chronic shoulder pain: Ibuprofen 200mg tid prn. 8. Gastroenteritis: Likely a viral syndrome which appears to be ceasing. She is a little dehydrated by labs, but declines IV hydration and we will encourage po fluids. Supportive care and she will try to do some therapies this afternoon. 9. Estimated LOS: Son would like to talk to Dr. Gilmore on Friday after talking to SW on 08/07 about d/c needs. 08/08/18 11:17
[2018-08-08] MEDS: Enoxaparin(*) 40 MG/0.4 ML SYR SUBCUT SCH (20:18)
[2018-08-09] MEDS: Levothyroxine TAB* 50 MCG TAB PO SCH (05:46)
[2018-08-09] MEDS: Insulin LISPRO* 1 UNITS UNIT SUBCUT SCH ×3 (08:11→16:55)
[2018-08-09] MEDS: Carbidopa/Levodop 25/100 MG TAB(*) PO SCH ×3 (08:16→20:37)
[2018-08-09] MEDS: amLODIPine TAB* 5 MG PO SCH (08:16)
[2018-08-09] MEDS: Ibuprofen TAB* 200 MG PO PRN (08:16)
[2018-08-09] MEDS: Lisinopril TAB* 10 MG PO SCH (08:16)
[2018-08-09] MEDS: Metoprolol Tartrate TAB* 50 mg PO SCH ×2 (08:17→20:37)
--- NOTE | 2018-08-09 09:50 | PN ---
Progress Note Date of Service: 08/09/18 Note: MONICA CALLEJAS was visited. Nursing and therapy notes read and reviewed. Her nausea and diarrhea have resolved last 24hrs. She ate a normal breakfast this morning. She did about 50min of PT in the room yesterday only. No chest pain, shortness of breath or abdominal pain. Current Medications: Active Medications Generic Name Dose Route Start Last Admin Trade Name Freq PRN Reason Stop Dose Admin Acetaminophen 650 mg 07/23/18 11:56 07/31/18 14:29 Tylenol Tab* PO 650 mg Q6H PRN Administration FEVER/PAIN Amlodipine Besylate 10 mg 07/24/18 09:00 08/09/18 08:16 Norvasc Tab* PO 10 mg DAILY LUIS Administration Carbidopa/Levodopa 1 tab 07/23/18 14:00 08/09/18 08:16 Sinemet 25/100 Tab(*) PO 1 tab TID LUIS Administration Dextrose 12.5 gm 07/23/18 12:01 D50w Syringe 50 Ml* IV PUSH .FOR FS < 60 - SS PRN FS < 60 Docusate Sodium 100 mg 08/08/18 09:26 Colace Cap* PO BID PRN CONSTIPATION Enoxaparin Sodium 40 mg 07/23/18 21:00 08/08/18 20:18 Lovenox(*) SUBCUT 40 mg Q24H LUIS Administration Ibuprofen 200 mg 08/04/18 11:03 08/09/18 08:16 Advil Tab* PO 200 mg Q8H PRN Administration PAIN Insulin Human Lispro 0 - 10 units 07/23/18 16:30 08/09/18 08:11 Humalog* SUBCUT Not Given [facility] Protocol Levothyroxine Sodium 50 mcg 07/24/18 06:00 08/09/18 05:46 Synthroid Tab* PO 50 mcg DAILY@0600 LUIS Administration Lisinopril 40 mg 07/24/18 09:00 08/09/18 08:16 Prinivil Tab* PO 40 mg DAILY LUIS Administration Magnesium Hydroxide 30 ml 07/23/18 11:56 Milk Of Magnesia Liq* PO Q6H PRN CONSTIPATION Metoprolol Tartrate 50 mg 07/23/18 21:00 08/09/18 08:17 Lopressor Tab* PO 50 mg Q12HR LUIS Administration Ondansetron HCl 4 mg 08/08/18 09:11 08/08/18 09:51 Zofran Odt Tab* SL 4 mg Q6H PRN Administration NAUSEA/VOMITING Oxycodone/Acetaminophen 1 tab 07/23/18 12:03 Percocet 5/325 Tab* PO Q6H PRN PAIN - MODERATE TO SEVERE Senna 2 tab 07/23/18 11:56 Senokot Tab* PO BEDTIME PRN CONSTIPATION Vital Signs: Vital Signs Temp Pulse Resp BP Pulse Ox 97.7 F 55 16 141/73 98 08/09/18 05:44 08/09/18 05:44 08/09/18 06:36 08/09/18 05:44 08/09/18 05:44 Lab Results: Laboratory Results - last 24 hr 08/08/18 08/08/18 10:37 10:37 WBC 10.3 RBC 4.65 Hgb 14.5 Hct 43 MCV 93 MCH 31 MCHC 34 RDW 14 Plt Count 197 MPV 8.2 Neut % (Auto) 78.7 Lymph % (Auto) 14.3 [place] % (Auto) 6.2 Eos % (Auto) 0.4 Baso % (Auto) 0.4 Absolute Neuts (auto) 8.1 H Absolute Lymphs (auto) 1.5 Absolute Monos (auto) 0.6 Absolute Eos (auto) 0 Absolute Basos (auto) 0 Absolute Nucleated RBC 0 Nucleated RBC % 0 Sodium 136 Potassium 4.5 Chloride 106 Carbon Dioxide 23 Anion Gap 7 BUN 27 H Creatinine 0.74 Est GFR ( Amer) 90.7 Est GFR (Non-Af Amer) 75.0 BUN/Creatinine Ratio 36.5 H Glucose 123 H Calcium 9.0 Total Bilirubin 0.60 AST 14 ALT 14 Alkaline Phosphatase 57 Total Protein 5.9 L Albumin 3.3 Globulin 2.6 Albumin/Globulin Ratio 1.3 Exam: GENERAL: Alert and appropriate. O/P: moist mucous membranes LUNGS: Clear to auscultation bilaterally HEART: regular rate and rhythm ABDOMEN: Soft, +bowel sounds, non-tender, non-distended EXTREMITIES: Increased tone in UEs and LEs. No edema. NEUROLOGIC: resting tremor in arms. Strength 4+/5 bue and ble with normal sensation Assessment/Plan: 1. Parkinson's Disease: Sinemet TID. PT/OT. Neurology f/u after discharge 2. Diabetes: SSI. Diet 3. HTN: Lisinopril/Lopressor/Norvasc. 4. Hypothyroidism: Synthroid 5. DVT Prophylaxis: Lovenox 6. Advanced Directives: DNR 7. Chronic shoulder pain: Ibuprofen 200mg tid prn. 8. Gastroenteritis: resolved. 9. Estimated LOS: Son would like to talk to Dr. Gilmore on Friday after talking to about d/c needs. I d/w Monica today. They wonder about extending stay here. 08/09/18 09:47
[2018-08-09] MEDS: Enoxaparin(*) 40 MG/0.4 ML SYR SUBCUT SCH (20:38)
[2018-08-10] MEDS: Levothyroxine TAB* 50 MCG TAB PO SCH (05:49)
[2018-08-10] MEDS: Metoprolol Tartrate TAB* 50 mg PO SCH ×2 (09:25→21:30)
[2018-08-10] MEDS: amLODIPine TAB* 5 MG PO SCH (09:25)
[2018-08-10] MEDS: Insulin LISPRO* 1 UNITS UNIT SUBCUT SCH ×3 (09:26→17:18)
[2018-08-10] MEDS: Lisinopril TAB* 10 MG PO SCH (09:26)
[2018-08-10] MEDS: Carbidopa/Levodop 25/100 MG TAB(*) PO SCH ×3 (09:26→21:31)
[2018-08-10 10:56] LABS: ABS Basophils 0.1 10^3/ul (0-0.2); ABS Eosinophils 0.1 10^3/ul (0-0.6); ABS Lymphocytes 1.4 10^3/ul (1.0-4.8); ABS Monocytes 0.4 10^3/ul (0-0.8); ABS Neutrophils 4.1 10^3/ul (1.5-7.7); ABS Nucleated RBC 0 10^3/ul; Eosinophil % 1.1 %; Hematocrit 45 % (35-47); Hemoglobin 15.1 g/dl (12.0-16.0); Lymphocyte % 23.7 %; Mean Corpuscular HGB Conc 34 g/dl (31-36); Mean Corpuscular Hemoglobin 31 pg (27-31); Mean Corpuscular Volume 92 fL (80-97); Mean Platelet Volume 8.1 fL (7.4-10.4); Nucleated Red Blood Cells % 0; Platelet Count 213 10^3/ul (150-450); Red Blood Count 4.85 10^6/ul (4.00-5.40); Red Cell Distribution Width 14 % (10.5-15)
[2018-08-10 11:17] LABS: Albumin 3.7 g/dL (3.2-5.2); Albumin/Globulin Ratio 1.3 (1-3); BUN/Creatinine Ratio 25.7 (8-20); EGFR Non-African American 79.9 (>60); Globulin 2.8 g/dL (2-4); Potassium 4.1 mmol/L (3.5-5.0); Total Bilirubin 0.5 mg/dL (0.2-1.0); Total Protein 6.5 g/dL (6.4-8.9)
[2018-08-10 11:48] LABS: TSH (Thyroid Stimulating Horm) 2.27 mcIU/mL (0.34-5.60)
--- NOTE | 2018-08-10 18:10 | PN ---
Progress Note Date of Service: 08/10/18 Note: MAGNO CALLEJAS was visited. Therapy notes read and reviewed. She did not feel well again today. We obtained blood work all of which was normal. At her request , a TSH was drawn and was normal. She had felt like this previously on 07/29/18 Current Medications: Active Medications Generic Name Dose Route Start Last Admin Trade Name Freq PRN Reason Stop Dose Admin Acetaminophen 650 mg 07/23/18 11:56 07/31/18 14:29 Tylenol Tab* PO 650 mg Q6H PRN Administration FEVER/PAIN Amlodipine Besylate 10 mg 07/24/18 09:00 08/10/18 09:25 Norvasc Tab* PO 10 mg DAILY LUIS Administration Carbidopa/Levodopa 1 tab 07/23/18 14:00 08/10/18 14:03 Sinemet 25/100 Tab(*) PO 1 tab TID LUIS Administration Dextrose 12.5 gm 07/23/18 12:01 D50w Syringe 50 Ml* IV PUSH .FOR FS < 60 - SS PRN FS < 60 Docusate Sodium 100 mg 08/08/18 09:26 Colace Cap* PO BID PRN CONSTIPATION Enoxaparin Sodium 40 mg 07/23/18 21:00 08/09/18 20:38 Lovenox(*) SUBCUT 40 mg Q24H LUIS Administration Ibuprofen 200 mg 08/04/18 11:03 08/09/18 08:16 Advil Tab* PO 200 mg Q8H PRN Administration PAIN Insulin Human Lispro 0 - 10 units 07/23/18 16:30 08/10/18 17:18 Humalog* SUBCUT 1 unit AC LUIS Administration Protocol Levothyroxine Sodium 50 mcg 07/24/18 06:00 08/10/18 05:49 Synthroid Tab* PO 50 mcg DAILY@0600 LUIS Administration Lisinopril 40 mg 07/24/18 09:00 08/10/18 09:26 Prinivil Tab* PO 40 mg DAILY LUIS Administration Magnesium Hydroxide 30 ml 07/23/18 11:56 Milk Of Magnesia Liq* PO Q6H PRN CONSTIPATION Metoprolol Tartrate 50 mg 07/23/18 21:00 08/10/18 09:25 Lopressor Tab* PO 50 mg Q12HR LUIS Administration Ondansetron HCl 4 mg 08/08/18 09:11 08/08/18 09:51 Zofran Odt Tab* SL 4 mg Q6H PRN Administration NAUSEA/VOMITING Oxycodone/Acetaminophen 1 tab 07/23/18 12:03 Percocet 5/325 Tab* PO Q6H PRN PAIN - MODERATE TO SEVERE Senna 2 tab 07/23/18 11:56 Senokot Tab* PO BEDTIME PRN CONSTIPATION Vital Signs: Vital Signs Temp Pulse Resp BP Pulse Ox 98.2 F 61 16 135/61 98 08/10/18 16:57 08/10/18 16:57 08/10/18 16:57 08/10/18 16:57 08/10/18 16:57 Lab Results: Laboratory Results - last 24 hr 08/08/18 08/08/18 08/08/18 11:17 16:18 20:17 WBC RBC Hgb Hct MCV MCH MCHC RDW Plt Count MPV Neut % (Auto) Lymph % (Auto) Brooke % (Auto) Eos % (Auto) Baso % (Auto) Absolute Neuts (auto) Absolute Lymphs (auto) Absolute Monos (auto) Absolute Eos (auto) Absolute Basos (auto) Absolute Nucleated RBC Nucleated RBC % Sodium Potassium Chloride Carbon Dioxide Anion Gap BUN Creatinine Est GFR ( Amer) Est GFR (Non-Af Amer) BUN/Creatinine Ratio Glucose POC Glucose (mg/dL) 117 H 127 H 145 H Calcium Total Bilirubin AST ALT Alkaline Phosphatase Total Protein Albumin Globulin Albumin/Globulin Ratio [facility] 08/09/18 08/09/18 08/09/18 07:41 11:39 16:50 WBC RBC Hgb Hct MCV MCH MCHC RDW Plt Count MPV Neut % (Auto) Lymph % (Auto) Brooke % (Auto) Eos % (Auto) Baso % (Auto) Absolute Neuts (auto) Absolute Lymphs (auto) Absolute Monos (auto) Absolute Eos (auto) Absolute Basos (auto) Absolute Nucleated RBC Nucleated RBC % Sodium Potassium Chloride Carbon Dioxide Anion Gap BUN Creatinine Est GFR ( Amer) Est GFR (Non-Af Amer) BUN/Creatinine Ratio Glucose POC Glucose (mg/dL) 118 H 130 H 127 H Calcium Total Bilirubin AST ALT Alkaline Phosphatase Total Protein Albumin Globulin Albumin/Globulin Ratio [facility] 08/09/18 08/10/18 08/10/18 20:41 07:56 10:50 WBC 6.0 RBC 4.85 Hgb 15.1 Hct 45 MCV 92 MCH 31 MCHC 34 RDW 14 Plt Count 213 MPV 8.1 Neut % (Auto) 67.1 Lymph % (Auto) 23.7 Brooke % (Auto) 7.2 Eos % (Auto) 1.1 Baso % (Auto) 0.9 Absolute Neuts (auto) 4.1 Absolute Lymphs (auto) 1.4 Absolute Monos (auto) 0.4 Absolute Eos (auto) 0.1 Absolute Basos (auto) 0.1 Absolute Nucleated RBC 0 Nucleated RBC % 0 Sodium Potassium Chloride Carbon Dioxide Anion Gap BUN Creatinine Est GFR ( Amer) Est GFR (Non-Af Amer) BUN/Creatinine Ratio Glucose POC Glucose (mg/dL) 147 H 144 H Calcium Total Bilirubin AST ALT Alkaline Phosphatase Total Protein Albumin Globulin Albumin/Globulin Ratio TSH 08/10/18 08/10/18 08/10/18 10:50 11:39 16:54 WBC RBC Hgb Hct MCV MCH MCHC RDW Plt Count MPV Neut % (Auto) Lymph % (Auto) Brooke % (Auto) Eos % (Auto) Baso % (Auto) Absolute Neuts (auto) Absolute Lymphs (auto) Absolute Monos (auto) Absolute Eos (auto) Absolute Basos (auto) Absolute Nucleated RBC Nucleated RBC % Sodium 136 Potassium 4.1 Chloride 105 Carbon Dioxide 24 Anion Gap 7 BUN 18 Creatinine 0.70 Est GFR ( Amer) 96.7 Est GFR (Non-Af Amer) 79.9 BUN/Creatinine Ratio 25.7 H Glucose 124 H POC Glucose (mg/dL) 101 H 137 H Calcium 9.0 Total Bilirubin 0.50 AST 13 ALT 4 L Alkaline Phosphatase 64 Total Protein 6.5 Albumin 3.7 Globulin 2.8 Albumin/Globulin Ratio 1.3 TSH 2.27 Exam: GENERAL: Alert and appropriate. LUNGS: Clear to auscultation bilaterally HEART: regular rate and rhythm ABDOMEN: Soft, +bowel sounds, non-tender, non-distended EXTREMITIES: Increased tone in UEs and LEs. No edema. NEUROLOGIC: resting tremor in arms. Strength 4+/5 bue and ble with normal sensation Assessment/Plan: 1. Parkinson's Disease: Sinemet TID. PT/OT. Neurology f/u after discharge 2. Diabetes: SSI. Diet 3. HTN: Lisinopril/Lopressor/Norvasc. 4. Hypothyroidism: Synthroid 5. DVT Prophylaxis: Lovenox 6. Advanced Directives: DNR 7. Chronic shoulder pain: Ibuprofen 200mg tid prn. 8. Malaise: may be dehydration from GI bug over weekend 08/10/18 18:11
[2018-08-10] MEDS: Enoxaparin(*) 40 MG/0.4 ML SYR SUBCUT SCH (21:31)
[2018-08-10] MEDS: Ibuprofen TAB* 200 MG PO PRN (21:51)
[2018-08-11] MEDS: Levothyroxine TAB* 50 MCG TAB PO SCH (07:00)
[2018-08-11] MEDS: Insulin LISPRO* 1 UNITS UNIT SUBCUT SCH ×3 (07:28→17:09)
[2018-08-11] MEDS: amLODIPine TAB* 5 MG PO SCH (08:23)
[2018-08-11] MEDS: Metoprolol Tartrate TAB* 50 mg PO SCH ×2 (08:23→20:23)
[2018-08-11] MEDS: Lisinopril TAB* 10 MG PO SCH (08:23)
[2018-08-11] MEDS: Carbidopa/Levodop 25/100 MG TAB(*) PO SCH ×3 (08:23→20:23)
[2018-08-11] MEDS: Ibuprofen TAB* 200 MG PO PRN ×2 (08:25→20:24)
--- NOTE | 2018-08-11 12:38 | PMRUTEAM ---
PMRU: Team Meeting Current Status: Nursing: Current Status Skin Deviations [under bilat Other breasts] Skin Deviations [Right Elbow] Skin Tear Skin Deviations [Right 3rd Toe Abrasion ] Skin Deviations [Left Breast] Other Skin Deviations [Bilateral Other Heel] Skin Deviations [Right Knee] Abrasion Skin Deviations [Right Breast] Other Skin Deviation Description [ redness healing under bilat breasts] Skin Deviation Description [ optifoam placed Right Elbow] Skin Deviation Description [ toenail from toe; dope firer will be Right 3rd Toe] tending per pt report; bandage applied for stability Skin Deviation Description [ redness Left Breast] Skin Deviation Description [ pink, blanching Bilateral Heel] Skin Deviation Description [ approx 4cm oval, dry multicolored; pt reports as Right Knee] baseline, has been treated by dermatology Skin Deviation Description [ redness healing Right Breast] Bladder Current Status voiding Bowel Current Status last bm 08/08/18 Nutrition Current Status appetite good Medication Current Status needs reinforcement Physical Therapy: Current Status Bed Mobility Assistance Min Assist Transfer Mobility Assistance Supervision,Contact Guard Assist Transfer/Bed Mobility Rolling Walker Recommended Devices Transfer Mobility Comment pt. is able to perform a transfer using a 2 /w. Ambulation Assistance Contact Guard Assist Ambulation Assistive Devices Rolling Walker Number of Feet Patient 150 Ambulated Ambulation Comment continues to require frequent cues for upright posture Stairs Assistance Contact Guard Assist Stairs Recommended Devices Two Rails Number of Stairs 5 Curb Not Tested Manual Wheelchair Control/ Bilateral LE's Technique Wheelchair Propulsion Ability Moderate Assistance Wheelchair Distance (ft) 90 Objective Comments step to pattern ascend/descending stairs with steadying assist provided when descending stairs due to poor eccentric control Occupational Therapy: Current Status Upper Body Dressing Min Assist Lower Body Dressing Mod Assist,Max Asst Bathing Min Assist Toileting Min Assist,Mod Assist Toilet Transfer Contact Guard Assist Shower Transfer Contact Guard Assist Eating Supervision Rec Therapy: Current Status Summary of Assessment and RT assessment complete and pt. is aware of RT Clinical Impression services. Pt. has been open to visits but declines activities at this time. Pt. presents as dysphoric with a blunted affect. Treatment Goals Pt. will engage in leisure activities while on the unit. Treatment Plan Provide RT services and encourage involvement. Social Work: Current Status Discharge Plan d/c to [facility], pt is requesting [facility] n/a Anticipated Discharge [facility] Facility Destination Discharge With [facility] Nutrition: Current Status Monitoring Visited pt and family. Note pt with short period of N/V/diarrhea r/t gastroenteritis. No BM since 08/08 but had "violent" diarrhea at that time. Intake negligible on that day but improved now and eating 76-90% and meeting needs. Glycemic control is good (FS 101-118-147). Pt denies any needs. No further specific nutrition intervention anticipated. Goals: Physical Therapy: Initial Goals Bed Mobility Assistance Independent Transfer Mobility Assistance Independent Transfer/Bed Mobility Rolling Walker Recommended Devices Ambulation Independent Ambulation Recommended Devices Rolling Walker Ambulation Distance 150 Stairs Assistance Independent Stair Recommended Devices One Rail Number of Stairs 6 Physical Therapy: Updated Goals Bed Mobility Assistance Independent Transfer/Bed Mobility Rolling Walker Recommended Devices Ambulation Assistance Independent Ambulation Assistive Devices Rolling Walker Ambulation Distance (ft) 150' Stairs Assistance Independent Stairs Recommended Devices One Rail Number of Stairs 6 Occupational Therapy: Initial Goals Goals to be Completed in (Days 2-3 weeks ) Upper Body Bathing Routine Modified Independent with Lower Body Bathing Routine Modified Independent with Upper Body Dressing Routine Modified Independent with Lower Body Dressing Routine Modified Independent with Toilet Hygeine and Clothing Modified Independent with Management Routine Toilet Transfer Routine Modified Independent with Step-In Shower Transfer Modified Independent with Routine Functional Transfers for ADL Modified Independent with Grooming Routine Independent Feeding Routine Independent Nursing: Goals Bladder Goal independent Bowel Goal independent Nutrition Goal 100% meals Medication Goal supervision Nutrition: Goals Intervention Goals 1. Maintain improved oral intake to support maintenance of lean body mass w/o N/V/D 2. Maintain adequate glycemic control per inpatient parameters, with consideration for advanced age and debility. 3. Staff to provide appropriate support with opening of containers/set up. Social Work: Goals Discharge Plan d/c to [facility], pt is requesting [facility] [employer] n/a Anticipated Discharge [facility] Facility Destination Discharge With [facility] Care Plan: Care Plan ADL's - Improve/Maintain Start: 07/23/18 16:51 Freq: DAILY Status: Active Target: Protocol: Activity Type Activity Date Activity User E-Sign Co-Sign Detail Recorded Client Recorded Date Recorded By Document 08/06/18 18:11 [id number] 08/06/18 18:11 [id number] 08/06/18 18:11 PMRU Outcome: ADL's/ADL Transfers Orders/Interventions Occupational Therapy Evaluation & Treatment Communication Tool in Patient Room Device Yes Address Deficits Secondary To: Parkinson's dz Patient to receive OT 5x/wk for 60-120 Therex min/day Self Care Management Group Therapy Neuromuscular ReEducation UE/LE ADL's with Assist Yes: Bhumika ADL Transfers with Assist Yes: Bhumika Toileting: Transfers,Clothing Management Yes: Bhumika ,Hygeine w/Assist Light Kitchen/Laundry w/Assist Yes: light meal prep Bhumika Progression Toward Outcome/Goals Progressing Outcome/Goals Met She is agreeable to participate in therapy but continues to demonstrate difficulty making functional progress. C/O lightheadedness this date. DVT Prophylaxis- Improve/Maintain Start: 07/23/18 10:54 Freq: QSHIFT Status: Active Target: Protocol: Activity Type Activity Date Activity User E-Sign Co-Sign Detail Recorded Client Recorded Date Recorded By Document 08/11/18 08:00 [id number] 08/11/18 11:12 [id number] 08/11/18 08:00 PMRU Outcome: DVT Prophylaxis Outcome/Goals Remains Free of DVT Complies with DVT Prophylaxis /Treatment TEDS Stockings on Every AM, Off at HS Progression Toward Outcome/Goals Progressing Discharge Planning - Improve/Maintain Start: 07/23/18 10:54 Freq: DAILY Status: Active Target: Protocol: Activity Type Activity Date Activity User E-Sign Co-Sign Detail Recorded Client Recorded Date Recorded By Document 08/10/18 04:21 [id number] 08/10/18 04:21 [id number] 08/10/18 04:21 PMRU Outcome: Discharge Planning Update Patient Family No Outcome/Goals Demonstrates Understanding of Discharge Plan Progression Toward Outcome/Goals Progressing Education-Improve/Maintain Start: 07/23/18 10:54 Freq: QSHIFT Status: Active Target: Protocol: Activity Type Activity Date Activity User E-Sign Co-Sign Detail Recorded Client Recorded Date Recorded By Document 08/11/18 08:00 [id number] 08/11/18 11:12 [id number] 08/11/18 08:00 PMRU Outcome: Education Outcome/Goals Encourage Questions Progression Toward Outcome/Goals Progressing Medication Administration Start: 07/23/18 10:54 Freq: QSHIFT Status: Active Target: Protocol: Activity Type Activity Date Activity User E-Sign Co-Sign Detail Recorded Client Recorded Date Recorded By Document 08/11/18 08:00 [id number] 08/11/18 11:12 [id number] 08/11/18 08:00 PMRU Outcome: Medication Administration Assess Patient Knowledge/Teach Med Yes Education for all Meds Outcome/Goals Demonstrates Understanding Progression Towards Outcome/Goals Progressing Is Patient Going Home on Lovenox? No Metabolic Status- Improve/Maintain Start: 07/23/18 10:54 Freq: QSHIFT Status: Active Target: Protocol: Activity Type Activity Date Activity User E-Sign Co-Sign Detail Recorded Client Recorded Date Recorded By Document 08/11/18 08:00 [id number] 08/11/18 11:12 [id number] 08/11/18 08:00 PMRU Outcome: Metabolic Status Have Fingersticks Been Ordered Yes Fingerstick Order Frequency AC & HS Outcome/Goals Maintain/ Improve Metabolic Status Demonstrate Knowledge of Prevention/ Treatment of Metabolic Imbalances Progression Toward Outcome/Goals Progressing Mobility- Improve/Maintain Start: 07/25/18 15:19 Freq: DAILY Status: Active Target: Protocol: Activity Type Activity Date Activity User E-Sign Co-Sign Detail Recorded Client Recorded Date Recorded By Document 07/25/18 15:20 [id number] 07/25/18 15:22 [id number] 07/25/18 15:20 PMRU Outcome: Mobility Physical Therapy Evaluation and Yes Treatment Activity OOB with Assistance Yes Device Yes: FWW Assistance Yes: Min-CGA Patient to be seen 5x/wk for 60-120 min/ Therex day for: Mobility Training Gait Training Balance Outcome/Goals Maintain/ Achieve Baseline Mobility Status Improve Mobility Status Demonstrates Proper Use of Assistive Devices Free from Complications of Immobility Progression Toward Outcome/Goals Progressing Bed Mobility Yes: Ind Transfers Yes: Mod I with walker Gait x ft Yes: Mod I with walker x150ft Up/Down Stairs Yes: Ind x6 steps, 1 rail With HEP Yes Neurological- Improve/Maintain Start: 07/23/18 10:54 Freq: QSHIFT Status: Complete Target: Protocol: Activity Type Activity Date Activity User E-Sign Co-Sign Detail Recorded Client Recorded Date Recorded By Document 08/09/18 08:00 [id number] 08/09/18 10:36 [id number] 08/09/18 08:00 PMRU Outcome: Neurological Weakness/Aphasia Weakness Outcome/Goals Maintain/ Achieve Baseline Neurological Status Improve Neurological Status Maintain/ Improve Strength/ROM Outcome/Goals Met Maintain/ Achieve Baseline Neurological Status Improve Neurological Status Safety- Improve/Maintain Start: 07/23/18 10:54 Freq: QSHIFT Status: Active Target: Protocol: Activity Type Activity Date Activity User E-Sign Co-Sign Detail Recorded Client Recorded Date Recorded By Document 08/11/18 08:00 [id number] 08/11/18 11:12 [id number] 08/11/18 08:00 PMRU Outcome: Safety Outcome/Goals Remain Free of Injury or Harm Cooperates with Safety Measures for Least Restrictive Environment Progression Toward Outcome/Goals Progressing Outcome/Goals Met Comment PA in place Medicine Note: Length of Stay: 1 day Anticipated Discharge Destination: [facility] Facility Tentative Discharge Date: 08/12/17 Discharged to: [facility]
--- NOTE | 2018-08-11 19:34 | PN ---
Progress Note Date of Service: 08/11/18 Note: MAGNO CALLEJAS was visited. Therapy notes read and reviewed. She was discussed in interdisciplinary team rounds. She is not going to be able to return home and will need a SNF for subacute rehab Current Medications: Active Medications Generic Name Dose Route Start Last Admin Trade Name Freq PRN Reason Stop Dose Admin Acetaminophen 650 mg 07/23/18 11:56 07/31/18 14:29 Tylenol Tab* PO 650 mg Q6H PRN Administration FEVER/PAIN Amlodipine Besylate 10 mg 07/24/18 09:00 08/11/18 08:23 Norvasc Tab* PO 10 mg DAILY LUIS Administration Carbidopa/Levodopa 1 tab 07/23/18 14:00 08/11/18 14:08 Sinemet 25/100 Tab(*) PO 1 tab TID LUIS Administration Dextrose 12.5 gm 07/23/18 12:01 D50w Syringe 50 Ml* IV PUSH .FOR FS < 60 - SS PRN FS < 60 Docusate Sodium 100 mg 08/08/18 09:26 Colace Cap* PO BID PRN CONSTIPATION Enoxaparin Sodium 40 mg 07/23/18 21:00 08/10/18 21:31 Lovenox(*) SUBCUT 40 mg Q24H LUIS Administration Ibuprofen 200 mg 08/04/18 11:03 08/11/18 08:25 Advil Tab* PO 200 mg Q8H PRN Administration PAIN Insulin Human Lispro 0 - 10 units 07/23/18 16:30 08/11/18 17:09 Humalog* SUBCUT 1 unit AC LUIS Administration Protocol Levothyroxine Sodium 50 mcg 07/24/18 06:00 08/11/18 07:00 Synthroid Tab* PO 50 mcg DAILY@0600 LUIS Administration Lisinopril 40 mg 07/24/18 09:00 08/11/18 08:23 Prinivil Tab* PO 40 mg DAILY LUIS Administration Magnesium Hydroxide 30 ml 07/23/18 11:56 Milk Of Magnesia Liq* PO Q6H PRN CONSTIPATION Metoprolol Tartrate 50 mg 07/23/18 21:00 08/11/18 08:23 Lopressor Tab* PO 50 mg Q12HR LUIS Administration Ondansetron HCl 4 mg 08/08/18 09:11 08/08/18 09:51 Zofran Odt Tab* SL 4 mg Q6H PRN Administration NAUSEA/VOMITING Oxycodone/Acetaminophen 1 tab 07/23/18 12:03 Percocet 5/325 Tab* PO Q6H PRN PAIN - MODERATE TO SEVERE Senna 2 tab 07/23/18 11:56 Senokot Tab* PO BEDTIME PRN CONSTIPATION Vital Signs: Vital Signs Temp Pulse Resp BP Pulse Ox 97.5 F 57 16 110/64 98 08/11/18 15:53 08/11/18 15:53 08/11/18 17:38 08/11/18 15:53 08/11/18 17:38 Lab Results: Laboratory Results - last 24 hr 08/10/18 08/11/18 08/11/18 21:29 07:25 12:04 POC Glucose (mg/dL) 148 H 127 H 109 H 08/11/18 16:21 POC Glucose (mg/dL) 138 H Exam: GENERAL: Alert and appropriate. LUNGS: Clear to auscultation bilaterally HEART: regular rate and rhythm ABDOMEN: Soft, +bowel sounds, non-tender, non-distended EXTREMITIES: Increased tone in UEs and LEs. No edema. NEUROLOGIC: resting tremor in arms. Strength 4+/5 bue and ble with normal sensation Assessment/Plan: 1. Parkinson's Disease: Sinemet TID. PT/OT. Neurology f/u after discharge 2. Diabetes: SSI. Diet 3. HTN: Lisinopril/Lopressor/Norvasc. 4. Hypothyroidism: Synthroid 5. DVT Prophylaxis: Lovenox 6. Advanced Directives: DNR 7. Chronic shoulder pain: Ibuprofen 200mg tid prn. 8. Malaise: may be dehydration from GI bug over weekend 08/11/18 19:34
[2018-08-11] MEDS: Enoxaparin(*) 40 MG/0.4 ML SYR SUBCUT SCH (20:23)
--- NOTE | 2018-08-11 23:20 | TRS ---
CC: [facility].* TRANSFER SUMMARY: DATE OF ADMISSION: 07/23/18 DATE OF TRANSFER: 08/12/18 The patient is being transferred to [facility]. DISCHARGE DIAGNOSES: 1. Parkinson's disease. 2. Diabetes mellitus. 3. Hypertension. 4. Hypothyroidism. 5. Chronic shoulder pain. HISTORY OF PRESENT ILLNESS AND HOSPITAL COURSE: For complete history of the events leading up to her rehab stay, please see the history and physical dictated by me on 07/23/18. While on the rehab unit, the patient remained fairly stable from a medical point of view. She did have 2 episodes where she complained of not feeling right. One was on 07/29/18 and the other was on 08/10. She had lab work done, all of which was unrevealing. Her thyroid function appeared to be normal. It was felt that the feelings of malaise were likely result of her Parkinson's disease. The patient did seem to tolerate the Sinemet fairly well while on the rehab unit. The patient was seen by both Physical and Occupational Therapy. She did make gains with both disciplines. With physical therapy at the time of admission, the patient required mod assist for bed mobility, mod assist for transfers, could ambulate about 90 feet with minimal amount of assistance. With occupational therapy at the time of admission, the patient required min assist for upper body dressing, mod assist for lower body dressing, mod assist for toileting and toilet transfers. By the time of discharge, the patient with min assist for upper body dressing, mod assist for lower body dressing, min assist for bathing, supervision for shower transfers, contact guard for toilet transfers. The patient was not able to achieve functional independence. The patient is being transferred to [facility] in order to undergo continued rehabilitation so that she might return home to independent living. DISCHARGE DIET: Regular. DISCHARGE MEDICATIONS: 1. Norvasc 10 mg daily. 2. Sinemet 25/100 one tablet 3 times a day. 3. Lovenox 40 mg subcutaneously every 24 hours. 4. Advil 200 mg every 8 hours as needed. 5. Synthroid 50 mcg daily at 6 a.m. 6. Lisinopril 40 mg daily. 7. Lopressor 50 mg every 12 hours. 8. Percocet 1 tablet every 6 hours as needed for back pain. 9. Colace 100 mg twice daily. 10. Senokot 2 tablets at bedtime as needed. SERVICES AFTER DISCHARGE: She should have restorative physical therapy and occupational therapy. FOLLOWUP: The patient can follow up with Dr. Slade Claudio, her neurologist from the hospital as needed. TIME SPENT: Time for this discharge was approximately 40 minutes, greater than half of which was spent with her son and the patient discussing post Acute rehab plans [id number]/[facility] #: [id number] MTDD
[2018-08-12] MEDS: Levothyroxine TAB* 50 MCG TAB PO SCH (05:47)
[2018-08-12 06:01] VITALS: BP 124/54
[2018-08-12] MEDS: Insulin LISPRO* 1 UNITS UNIT SUBCUT SCH ×2 (07:34→12:50)
[2018-08-12] MEDS: Carbidopa/Levodop 25/100 MG TAB(*) PO SCH (08:53)
[2018-08-12] MEDS: amLODIPine TAB* 5 MG PO SCH (08:54)
[2018-08-12] MEDS: Lisinopril TAB* 10 MG PO SCH (08:54)
[2018-08-12] MEDS: Metoprolol Tartrate TAB* 50 mg PO SCH (08:55)
== END 2018-08-12 13:10 | DRG 57 ==
LOC: PMRU 09:43
PROVIDERS: ADMIT Physical Medicine & Rehabilitation; ATTEND Physical Medicine & Rehabilitation
PROC: F07Z5ZZ Bed Mobility Treatment (ICD-10-PCS; principal; 2018-07-23)
PROC: F07Z9ZZ Gait Training/Functional Ambulation Treatment (ICD-10-PCS; 2018-07-23)
PROC: F07Z8ZZ Transfer Training Treatment (ICD-10-PCS; 2018-07-23)
PROC: F07Z4ZZ Wheelchair Mobility Treatment (ICD-10-PCS; 2018-07-23)
PROC: F08Z0ZZ Bathing/Showering Techniques Treatment (ICD-10-PCS; 2018-07-23)
PROC: F08Z1ZZ Dressing Techniques Treatment (ICD-10-PCS; 2018-07-23)
PROC: F08Z3ZZ Feeding/Eating Treatment (ICD-10-PCS; 2018-07-23)
DX: G20 Parkinson's disease (principal); E11.9 Type 2 diabetes mellitus without complications; I10 Essential (primary) hypertension; E03.9 Hypothyroidism, unspecified; Z66 Do not resuscitate; M25.519 Pain in unspecified shoulder; R53.81 Other malaise; Z79.4 Long term (current) use of insulin; Z79.899 Other long term (current) drug therapy; Z88.8 Allergy status to other drugs, medicaments and biological substances
CPT/HCPCS: 36415; 80053; 81003; 84443; 85025; A9270-GY; J1650